=== PATIENT | female | born 1945 | race Caucasian/White ===

== ENCOUNTER → 2022-02-01 | Outpatient (CLI) | payer MEDICARE, OTHER ==
--- NOTE | 2022-02-01 15:15 | US ---
LOWER EXTREMITY VENOUS INSUFFICIENCY CLINICAL HISTORY: I87.333 CHRONIC VENOUS HYPERTENSION. Bilateral ankle wounds. SIDE PERFORMED: Bilateral 1) Color flow is present and patency is documented in the following vessels. No DVT or SVT is noted . Common Femoral Vein Deep Femoral Vein Femoral Vein Popliteal Vein Proximal Calf Veins Greater Saph Vein Upper Small Saph Vein 2) There is venous reflux noted at the following venous levels: Right EIV Right GSV IMPRESSION: Venous reflux present within the right external iliac vein and greater saphenous vein.
== END | disposition home or self-care (01) ==
LOC: RADUSWWP 13:45
PROVIDERS: ATTEND Thoracic Surgery (Cardiothoracic Vascular Surgery)
DX: I87.333 Chronic venous hypertension (idiopathic) with ulcer and inflammation of bilateral lower extremity (principal); L97.222 Non-pressure chronic ulcer of left calf with fat layer exposed; L97.212 Non-pressure chronic ulcer of right calf with fat layer exposed
CPT/HCPCS: 93922; 93970

== ENCOUNTER 2023-03-02 17:46 | Inpatient (IN) | payer MEDICARE, OTHER ==
[2023-03-02] MEDS ORDERED: SODIUM CHLORIDE 0.9% 1,000 ML IV STA (18:58)
[2023-03-02] MEDS ORDERED: NALOXONE 0.4 MG/ML 1 ML VIAL IV PRN (18:58)
[2023-03-02] MEDS ORDERED: VANCOMYCIN IV PER PHARMACY 1 EACH MISC MISCELLANE PRN (18:58)
[2023-03-02] MEDS ORDERED: MORPHINE SULFATE 4 MG/ML SYRINGE IV PRN (18:58)
[2023-03-02] MEDS ORDERED: ONDANSETRON 4 MG/2 ML VIAL IVP STA (18:58)
[2023-03-02] MEDS ORDERED: ONDANSETRON 4 MG/2 ML VIAL IVP PRN (18:58)
[2023-03-02] MEDS ORDERED: MORPHINE SULFATE 4 MG/ML SYRINGE IV STA (18:58)
[2023-03-02] MEDS ORDERED: VANCOMYCIN 1,500 MG in SODIUM CHLORIDE 0.9% 500 ML 500 ML IVPB STA (19:05)
--- NOTE | 2023-03-02 19:19 | ED ---
Extremity Problem HPI - General Chief complaint: Wound/Laceration Stated complaint: Cellulitis on legs Time Seen by Provider: 03/02/23 18:16 Source: patient, RN notes reviewed, old records reviewed Mode of arrival: EMS Limitations: physical limitation - History of Present Illness Initial comments: This is a 77-year-old female to the emergency department for evaluation. Patient will be admitted by to the ER for significant lower extremity cellulitis and drainage. Skin was discharged from both legs with history of chronic pain chronic leg ulcers and wounds. Patient is been doing her own care but the son came to help him today noticed significant this discharge with a bad smell, patient also per the son was not acting appropriately maybe a little bit confused MD Complaint: extremity pain, extremity swelling -: unknown Location: bilateral lower extremity Radiation: proximal, distal Severity scale (1-10): 7 Consistency: constant Improves with: nothing Worsens with: nothing Associated Symptoms: denies other symptoms - Related Data Home Medications Medication Instructions Recorded Confirmed Aspirin EC [Ecotrin Low Dose] 81 mg PO DAILY 03/02/23 03/02/23 Lansoprazole 30 mg PO DAILY 03/02/23 03/02/23 Levothyroxine Sodium [Synthroid] 100 mcg PO DAILY 03/02/23 03/02/23 Multivit-Min/Iron/Folic/Lutein 1 tab PO DAILY 03/02/23 03/02/23 [Centrum Silver Women Tablet] Naproxen Sodium [Aleve] 220 mg PO BID 03/02/23 03/02/23 atenoloL [Tenormin] 50 mg PO DAILY 03/02/23 03/02/23 Previous Rx's Medication Instructions Recorded Cephalexin [Keflex] 500 mg PO Q8HR 10 Days #30 cap 03/06/23 traMADol HCl [Ultram] 50 mg PO Q6H PRN #12 tab 03/08/23 Allergies Allergy/AdvReac Type Severity Reaction Status Date / Time No Known Allergies Allergy Verified 03/02/23 20:53 Review of Systems ROS Statement: Those systems with pertinent positive or pertinent negative responses have been documented in the HPI. ROS Other: All systems not noted in ROS Statement are negative. Past Medical History Additional Past Medical History / Comment(s): Leg wounds and weeping History of Any Multi-Drug Resistant Organisms: None Reported Past Psychological History: No Psychological Hx Reported Smoking Status: Never smoker Past Alcohol Use History: Daily Past Drug Use History: None Reported General Exam Limitations: physical limitation General appearance: alert, in no apparent distress Head exam: Present: atraumatic, normocephalic, normal inspection Eye exam: Present: normal appearance, PERRL, EOMI. Absent: scleral icterus, conjunctival injection, periorbital swelling ENT exam: Present: normal exam, mucous membranes moist Neck exam: Present: normal inspection. Absent: tenderness, meningismus, lymphadenopathy Respiratory exam: Present: normal lung sounds bilaterally. Absent: respiratory distress, wheezes, rales, rhonchi, stridor Cardiovascular Exam: Present: regular rate, normal rhythm, normal heart sounds. Absent: systolic murmur, diastolic murmur, rubs, gallop, clicks GI/Abdominal exam: Present: soft, normal bowel sounds. Absent: distended, tenderness, guarding, rebound, rigid Extremities exam: Present: normal inspection, full ROM, normal capillary refill. Absent: tenderness, pedal edema, joint swelling, calf tenderness Back exam: Present: normal inspection Neurological exam: Present: alert, oriented X3, CN II-XII intact Psychiatric exam: Present: normal affect, normal mood Skin exam: Present: rash, erythema, mottled, abrasion Course Vital Signs 03/02/23 03/02/23 03/03/23 17:50 20:23 06:22 Temperature 97.9 F 98.1 F 97.8 F Pulse Rate 79 77 Respiratory 18 18 Rate Blood Pressure 177/77 177/77 O2 Sat by Pulse 98 99 Oximetry 03/03/23 03/03/23 03/03/23 06:25 09:00 12:52 Temperature 97.8 F 99.1 F Pulse Rate 82 109 H 85 Respiratory 18 18 18 Rate Blood Pressure 164/81 140/75 109/56 O2 Sat by Pulse 98 94 L 96 Oximetry 03/03/23 03/03/23 14:00 17:10 Temperature 98.1 F Pulse Rate 87 Respiratory 18 18 Rate Blood Pressure 140/84 O2 Sat by Pulse 98 Oximetry - Reevaluation(s) Reevaluation #1: 03/02/23 19:16 Medical record is reviewed Reevaluation #2: 03/02/23 19:17 Patient has no change in symptoms here in the ER Reevaluation #3: 03/02/23 19:17 Patient informed of results and questions answered Reevaluation #4: 03/02/23 19:17 Was pt. sent in by a medical professional or institution (DESEAN Cormier, HAND PASTER, urgent care, hospital, or assisted...) When possible be specific @ -no Did you speak to anyone other than the patient for history (EMS, parent, family, police, friend...)? What history was obtained from this source @ -no Did you review nursing and triage notes (agree or disagree)? Why? @ -agree Are old charts reviewed (outside hosp., previous admission, EMS record, old EKG, old radiological studies, urgent care reports/EKG's, assisted records)? Report findings @ -yes Differential Diagnosis (chest pain, altered mental status, abdominal pain women, abdominal pain men, vaginal bleeding, weakness, fever, dyspnea, syncope, head ache, dizziness, GI bleed, back pain, seizure, CVA, palpatations, mental health, musculoskeletal)? @ -prior EKG interpreted by me (3pts min.). @ -yes X-rays interpreted by me (1pt min.). @ -yes CT interpreted by me (1pt min.). @ -no U/S interpreted by me (1pt. min.). @ -no What testing was considered but not performed or refused? (CT, X-rays, U/S, labs)? Why? @ -none What meds were considered but not given or refused? Why? @ -none Did you discuss the management of the patient with other professionals (professionals i.e. DESEAN Cormier, HAND PASTER, lab, RT, psych nurse, social media strategist, assistant branch manager, teacher, earth science technical officer, leather case finisher)? Give summary @ -no Was smoking cessation discussed for >3mins.? @ -no Was critical care preformed (if so, how long)? @ -no Were there social determinants of health that impacted care today? How? (Homelessness, low income, unemployed, alcoholism, drug addiction, tra nsportation, low edu. Level, literacy, decrease access to med. care, nursing home, rehab)? @ -none Was there de-escalation of care discussed even if they declined (Discuss DNR or withdrawal of care, Hospice)? DNR status @ -no What co-morbidities impacted this encounter? (DM, HTN, Smoking, COPD, CAD, Cance r, CVA, ARF, Chemo, Hep., AIDS, mental health diagnosis, sleep apnea, morbid obesity)? @ -none Was patient admitted / discharged? Hospital course, mention meds given and route, prescriptions, significant lab abnormalities, going to OR and other pertinent info. @ - 77 female will be admitted for bilateral lower extremity cellulitis and edema with significant infection malodorous and purulent discharge Admitted Undiagnosed new problem with uncertain prognosis? @ -no Drug Therapy requiring intensive monitoring for toxicity (Heparin, Nitro, Insulin, Cardizem)? @ -no Were any procedures done? @ -no Diagnosis/symptom? @ -Significant lower extremity cellulitis and infection Acute, or Chronic, or Acute on Chronic? @ -Acute Uncomplicated (without systemic symptoms) or Complicated (systemic symptoms)? @ -Complicated Side effects of treatment? @ -no Exacerbation, Progression, or Severe Exacerbation? @ -exacerbation Poses a threat to life or bodily function? How? (Chest pain, USA, SD, pneumonia, PE, COPD, DKA, ARF, appy, cholecystitis, CVA, Diverticulitis, Homicidal, Suicidal, threat to staff... and all critical care pts) @ -yes - Consultations Consultation #1: spoke w Dr Rodríguez who agrees to admit this patient Medical Decision Making - Medical Decision Making 77 female will be admitted for bilateral lower extremity cellulitis and edema with significant infection malodorous and purulent discharge - Lab Data Result diagrams: 03/03/23 07:01 03/06/23 05:43 - EKG Data -: EKG Interpreted by Me (EKG is sinus 72 [place] 164 QRS 80 QTC 408) - Radiology Data Radiology results: report reviewed (X-ray bilateral tib-fib is negative for acute disease), image reviewed Disposition Clinical Impression: Bilateral lower extremity edema, Bilateral lower leg cellulitis Disposition: ADMITTED IP TO THIS HOSP Condition: Fair Is patient prescribed a controlled substance at d/c from ED?: No Time of Disposition: 19:15
[2023-03-02 20:35] LABS: Basophils # (A) 0.1 k/uL (0-0.2); Basophils % (A) 1 %; Eosinophils # (A) 0.2 k/uL (0-0.7); Eosinophils % (A) 2 %; HCT 40.3 % (34.0-46.0); HGB 13.1 gm/dL (11.4-16.0); Lymphocytes % (A) 9 %; MCH 30.2 pg (25.0-35.0); MCHC 32.4 g/dL (31.0-37.0); MCV 93.2 fL (80.0-100.0); Mean Platelet Volume 8.3; Monocytes % (A) 9 %; Neutrophils # (A) 8.6 k/uL (1.3-7.7); Neutrophils % (A) 78 %; Platelet Count 441 k/uL (150-450); RBC 4.33 m/uL (3.80-5.40); RDW 14.2 % (11.5-15.5)
[2023-03-02 20:43] LABS: ALT 21 U/L (4-34); AST 26 U/L (14-36); African American GFR (CKD) 68 (>60 ml/min/1.73 sqM); Albumin 3.4 g/dL (3.5-5.0); Alkaline Phosphatase 172 U/L (38-126); Anion Gap 10 mmol/L; Blood Urea Nitrogen 24 mg/dL (7-17); Calcium 9.6 mg/dL (8.4-10.2); Carbon Dioxide 22 mmol/L (22-30); Chloride 103 mmol/L (98-107); Glucose 120 mg/dL (74-99); Magnesium 2.1 mg/dL (1.6-2.3); Non-African American GFR(CKD) 59 (>60 ml/min/1.73 sqM); Phosphorus 3.1 mg/dL (2.5-4.5); Potassium 4.8 mmol/L (3.5-5.1); Sodium 135 mmol/L (137-145); Total Bilirubin 0.5 mg/dL (0.2-1.3); Total Protein 7.3 g/dL (6.3-8.2)
[2023-03-02 20:51] LABS: NT-Pro-B-Type Natriuretic Pept 158 pg/mL
[2023-03-02 20:59] LABS: Partial Thromboplastin Time 27.8 sec (22.0-30.0); Prothrombin Time 10.8 sec (10.0-12.5)
--- NOTE | 2023-03-02 21:35 | XR ---
PROCEDURE: XR tibia fibula bilateral - 8V DATE AND TIME: 03/02/2023 7:53 PM CLINICAL INDICATION: PHH; pain TECHNIQUE: Department protocol - 8 views COMPARISON: None FINDINGS: AP and lateral imaging was obtained from the right knee to the right ankle and from the left knee to the left ankle. There is no fracture or malalignment. No focal skeletal findings. There is scattered mild soft tissue swelling. No soft tissue emphysema. No radio opaque foreign titus s. IMPRESSION: Bilateral tibia-fibula: Scattered mild soft tissue swelling.
[2023-03-03] MEDS: NAPROXEN 250 MG TAB PO SCH ×3 (02:32→22:11)
[2023-03-03] MEDS: PANTOPRAZOLE 40 MG TABLET PO SCH (06:55)
[2023-03-03] MEDS: LEVOTHYROXINE 100 MCG TAB PO SCH (06:55)
[2023-03-03] MEDS: ASPIRIN 81 MG PO SCH (09:01)
[2023-03-03] MEDS: atenoloL 50 MG TAB PO SCH (09:02)
[2023-03-03] MEDS: MULTIVITAMINS, THERA 1 EACH TAB PO SCH (09:02)
[2023-03-03 11:07] LABS: Basophils # (A) 0.06 X 10*3/uL (0.00-0.10); Basophils % (A) 0.5 %; Eosinophils # (A) 0.09 X 10*3/uL (0.04-0.35); Eosinophils % (A) 0.8 %; HCT 37.6 % (37.2-46.3); HGB 11.9 d/dL (12.0-15.0); Lymphocytes # (A) 0.89 X 10*3/uL (0.90-5.00); MCH 29.6 pg (27.0-32.0); MCHC 31.6 d/dL (32.0-37.0); MCV 93.5 FL (80.0-97.0); Mean Platelet Volume 9.2 FL (9.5-12.2); Monocytes # (A) 1.44 X 10*3/uL (0.20-1.00); NRBC Per 100 WBC 0 X 10*3/uL (0.00-0.01); Neutrophils # (A) 8.52 X 10*3/uL (1.80-7.70); Neutrophils % (A) 77.2 %; Platelet Count 352 X 10*3/uL (140-440); RBC 4.02 X 10*6/uL (4.10-5.20); RDW 14.5 % (11.5-14.5); WBC 11.06 X 10*3/uL (4.50-10.00)
[2023-03-03 11:23] LABS: ALT 14 U/L (8-44); AST 19 U/L (13-35); Albumin/Globulin Ratio 1.03 Ratio (1.60-3.17); Alkaline Phosphatase 130 U/L (41-126); BUN/Creat Ratio 19.67 Ratio (12.00-20.00); Blood Urea Nitrogen 17.7 mg/dL (9.0-27.0); Calcium 9.3 mg/dL (8.7-10.3); Carbon Dioxide 21.3 mmol/L (21.6-31.8); Chloride 106 mmol/L (96-109); Globulin 2.9 d/dL (1.6-3.3); Glucose 135 mg/dL (70-110); Magnesium 1.9 mg/dL (1.5-2.4); Phosphorus 2.8 mg/dL (2.4-5.1); Potassium 4.7 mmol/L (3.5-5.5); Sodium 138 mmol/L (135-145); Total Bilirubin 0.3 mg/dL (0.3-1.2); Total Protein 5.9 d/dL (6.2-8.2)
--- NOTE | 2023-03-03 14:57 | P.HPIM ---
History of Present Illness H&P Date: 03/03/23 Chief Complaint: Lower extremity wounds This is a pleasant 77-year-old patient who as just establish herself with Dr. Toney Irving. Patient is at lower extremity wound for some time. Used to 4 at the wound care center and underwent [address] Simmons, wound care nurse. For the last 6 months patient hasn't been updated. And was taking care of her wounds on her own. More started deteriorating. Having the drainage. Painful. Denies any fever and chills. Appetite is okay. Since the wounds could not be managed at home anymore she decided to come in. Normally uses a cane. Now finding it difficult to walk because lower extremity wounds. Review of systems: GEN.: None EYES: None HEENT: None NECK: None RESPIRATORY: None CARDIOVASCULAR: None GASTROINTESTINAL: None GENITOURINARY: Urinary incontinence MUSCULOSKELETAL: Joint pains LYMPHATICS: None HEMATOLOGICAL: None PSYCHIATRY: None NEUROLOGICAL: None Past medical history to include: Osteoarthritis, essential hypertension, hypothyroid, GERD, lower extremity wounds Social history: Nonsmoker. . Lives with Physical examination: VITAL SIGNS: 99, 85, 18, 109/56, 96% room air GENERAL: BMI 35.4, sitting up in bed. EYES: Pupils equal. Conjunctiva normal. HEENT: External appearance of nose and ears normal, oral cavity grossly normal. NECK: JVD not raised; masses not palpable. HEART: First and second heart sounds are normal; no edema. LUNGS: Respiratory rate normal; clear to auscultation. ABDOMEN: Soft, nontender, liver spleen not palpable, no masses palpable. PSYCH: Alert and oriented x3; mood and affect normal. MUSCULOSKELETAL:No Clubbing/cyanosis;muscles-grossly intact. OA LOWER extremity: Wounds in both lower extremity in the adam area. More detailed and nursing notes NEUROLOGICAL: Cranial nerves grossly intact; no facial asymmetry, power and sensation grossly intact. LYMPHATICS: No lymph nodes palpable in the axilla and neck INVESTIGATIONS, reviewed in the clinical context: White count 11.06 hemoglobin 11.9 platelets 352 sodium 138 potassium 4.7 creatinine 0.9 ProBNP 158 EKG tracing personally reviewed by me-normal sinus rhythm. Previous investigations: Lower extremity: Venous reflux present within the right external iliac vein and greater saphenous vein. [January 2022) Assessment and plan: -Acute on chronic lower extremity wounds. Likely venous ulcers. Did receive treatment for 32 weeks at the wound care center. Did not follow for the last 6 months. Progressively getting worse at home. Appears infected. IV ceftriaxone. Vascular and ID consulted -Obesity BMI 35.4 Weight loss measures -Chronic bilateral lower external edema venous insufficiency with known reflux present to the right external iliac vein and the greater saphenous vein. -Primary osteoarthritis Naproxen twice a day -Essential hypertension Tenormin 50 mg a day -Hypothyroid Synthroid 100 g a day -GERD Lansoprazole Consultation to vascular ID. Home medications resumed. Subcu Lovenox. Discussed with patient. Given the complexity and severity of patient's condition expect the patient to be in the hospital at least for 2 overnights. Patient is barely able to walk. Past Medical History Additional Past Medical History / Comment(s): Leg wounds and weeping History of Any Multi-Drug Resistant Organisms: None Reported Past Psychological History: No Psychological Hx Reported Smoking Status: Never smoker Past Alcohol Use History: Daily Past Drug Use History: None Reported Medications and Allergies Home Medications Medication Instructions Recorded Confirmed Type Aspirin EC [Ecotrin Low Dose] 81 mg PO DAILY 03/02/23 03/02/23 History Lansoprazole 30 mg PO DAILY 03/02/23 03/02/23 History Levothyroxine Sodium [Synthroid] 100 mcg PO DAILY 03/02/23 03/02/23 History Multivit-Min/Iron/Folic/Lutein 1 tab PO DAILY 03/02/23 03/02/23 History [Centrum Silver Women Tablet] Naproxen Sodium [Aleve] 220 mg PO BID 03/02/23 03/02/23 History atenoloL [Tenormin] 50 mg PO DAILY 03/02/23 03/02/23 History Allergies Allergy/AdvReac Type Severity Reaction Status Date / Time No Known Allergies Allergy Verified 03/02/23 20:53 Physical Exam Vitals: Vital Signs Temp Pulse Resp BP Pulse Ox 03/03/23 09:00 109 H 18 140/75 94 L 03/03/23 06:25 97.8 F 82 18 164/81 98 03/03/23 06:22 97.8 F 03/02/23 20:23 98.1 F 77 18 177/77 99 03/02/23 17:50 97.9 F 79 18 177/77 98 Intake and Output 10/19/23 10/20/23 10/20/23 22:59 06:59 14:59 Other: Weight 90.718 kg Results CBC & Chem 7: 03/03/23 07:01 03/03/23 07:01 Labs: Abnormal Lab Results - Last 24 Hours (Table) 03/02/23 03/02/23 Range/Units 20:00 20:00 WBC 11.0 H (3.8-10.6) k/uL Neutrophils # 8.6 H (1.3-7.7) k/uL Sodium 135 L (137-145) mmol/L BUN 24 H (7-17) mg/dL Glucose 120 H (74-99) mg/dL Alkaline Phosphatase 172 H (38-126) U/L Albumin 3.4 L (3.5-5.0) g/dL
--- NOTE | 2023-03-03 15:53 | P.GSCN ---
History of Present Illness History of present illness: 77-year-old white female, patient came to the emergency room with history of long-standing history of 4 venous stasis ulcer both lower extremity patient has been coming to the wound clinic clinic but for the past 4 months she has been been staying home and taking care of herself patient has a bad knee problem she can't take care of herself now she has a large venous stasis ulcer involving the right lower extremity extremity is circumferentially and also on the left lower extremity with some drainage patient has no fever or chills Patient was seen in in the emergency room neck is supple no bruit appreciated Chest is clear good and both then first and second sound present Abdomen soft nontender Vascular femorals are 1+ bilateral patient has a venous stasis ulcer involving the right and left lower ex extremity involving circumferentially Eschen to that care of refuses disease for IV antibiotic we have changed the dressing today we use Aquacel silver both lower extremity with compression wrap next dressing will be changed on Monday advised to keep 2 pillow elevation patient IV antibiotic follow with you Past Medical History Additional Past Medical History / Comment(s): Leg wounds and weeping History of Any Multi-Drug Resistant Organisms: None Reported Past Psychological History: No Psychological Hx Reported Smoking Status: Never smoker Past Alcohol Use History: Daily Past Drug Use History: None Reported Medications and Allergies Home Medications Medication Instructions Recorded Confirmed Type Aspirin EC [Ecotrin Low Dose] 81 mg PO DAILY 03/02/23 03/02/23 History Lansoprazole 30 mg PO DAILY 03/02/23 03/02/23 History Levothyroxine Sodium [Synthroid] 100 mcg PO DAILY 03/02/23 03/02/23 History Multivit-Min/Iron/Folic/Lutein 1 tab PO DAILY 03/02/23 03/02/23 History [Centrum Silver Women Tablet] Naproxen Sodium [Aleve] 220 mg PO BID 03/02/23 03/02/23 History atenoloL [Tenormin] 50 mg PO DAILY 03/02/23 03/02/23 History Allergies Allergy/AdvReac Type Severity Reaction Status Date / Time No Known Allergies Allergy Verified 03/02/23 20:53 Surgical - Exam Vital Signs Temp Pulse Resp BP Pulse Ox 97.9 F 79 18 177/77 98 03/02/23 17:50 03/02/23 17:50 03/02/23 17:50 03/02/23 17:50 03/02/23 17:50 Results - Labs 03/03/23 07:01 03/03/23 07:01 Abnormal Lab Results - Last 24 Hours (Table) 03/02/23 03/02/23 03/03/23 Range/Units 20:00 20:00 07:01 WBC 11.0 H 11.06 H (3.8-10.6) k/uL RBC 4.02 L (4.10-5.20) X 10*6/uL Hgb 11.9 L (12.0-15.0) d/dL MCHC 31.6 L (32.0-37.0) d/dL MPV 9.2 L (9.5-12.2) FL Neutrophils # 8.6 H 8.52 H (1.3-7.7) k/uL Lymphocytes # 0.89 L (0.90-5.00) X 10*3/uL Monocytes # 1.44 H (0.20-1.00) X 10*3/uL Sodium 135 L (137-145) mmol/L Carbon Dioxide (21.6-31.8) mmol/L BUN 24 H (7-17) mg/dL Glucose 120 H (74-99) mg/dL Alkaline Phosphatase 172 H (38-126) U/L Total Protein (6.2-8.2) d/dL Albumin 3.4 L (3.5-5.0) g/dL Albumin/Globulin Ratio (1.60-3.17) Ratio 03/03/23 Range/Units 07:01 WBC (3.8-10.6) k/uL RBC (4.10-5.20) X 10*6/uL Hgb (12.0-15.0) d/dL MCHC (32.0-37.0) d/dL MPV (9.5-12.2) FL Neutrophils # (1.3-7.7) k/uL Lymphocytes # (0.90-5.00) X 10*3/uL Monocytes # (0.20-1.00) X 10*3/uL Sodium (137-145) mmol/L Carbon Dioxide 21.3 L (21.6-31.8) mmol/L BUN (7-17) mg/dL Glucose 135 H (74-99) mg/dL Alkaline Phosphatase 130 H (38-126) U/L Total Protein 5.9 L (6.2-8.2) d/dL Albumin 3.0 L (3.5-5.0) g/dL Albumin/Globulin Ratio 1.03 L (1.60-3.17) Ratio Diabetes panel 03/02/23 03/03/23 Range/Units 20:00 07:01 Sodium 135 L 138 (137-145) mmol/L Potassium 4.8 4.7 (3.5-5.1) mmol/L Chloride 103 106 (98-107) mmol/L Carbon Dioxide 22 21.3 L (22-30) mmol/L BUN 24 H 17.7 (7-17) mg/dL Creatinine 0.95 0.9 (0.52-1.04) mg/dL Glucose 120 H 135 H (74-99) mg/dL Calcium 9.6 9.3 (8.4-10.2) mg/dL AST 26 19 (14-36) U/L ALT 21 14 (4-34) U/L Alkaline Phosphatase 172 H 130 H (38-126) U/L Total Protein 7.3 5.9 L (6.3-8.2) g/dL Albumin 3.4 L 3.0 L (3.5-5.0) g/dL Calcium panel 03/02/23 03/03/23 Range/Units 20:00 07:01 Calcium 9.6 9.3 (8.4-10.2) mg/dL Phosphorus 3.1 2.8 (2.5-4.5) mg/dL Albumin 3.4 L 3.0 L (3.5-5.0) g/dL Pituitary panel 03/02/23 03/03/23 Range/Units 20:00 07:01 Sodium 135 L 138 (137-145) mmol/L Potassium 4.8 4.7 (3.5-5.1) mmol/L Chloride 103 106 (98-107) mmol/L Carbon Dioxide 22 21.3 L (22-30) mmol/L BUN 24 H 17.7 (7-17) mg/dL Creatinine 0.95 0.9 (0.52-1.04) mg/dL Glucose 120 H 135 H (74-99) mg/dL Calcium 9.6 9.3 (8.4-10.2) mg/dL Adrenal panel 03/02/23 03/03/23 Range/Units 20:00 07:01 Sodium 135 L 138 (137-145) mmol/L Potassium 4.8 4.7 (3.5-5.1) mmol/L Chloride 103 106 (98-107) mmol/L Carbon Dioxide 22 21.3 L (22-30) mmol/L BUN 24 H 17.7 (7-17) mg/dL Creatinine 0.95 0.9 (0.52-1.04) mg/dL Glucose 120 H 135 H (74-99) mg/dL Calcium 9.6 9.3 (8.4-10.2) mg/dL Total Bilirubin 0.5 0.3 (0.2-1.3) mg/dL AST 26 19 (14-36) U/L ALT 21 14 (4-34) U/L Alkaline Phosphatase 172 H 130 H (38-126) U/L Total Protein 7.3 5.9 L (6.3-8.2) g/dL Albumin 3.4 L 3.0 L (3.5-5.0) g/dL
[2023-03-03] MEDS: ENOXAPARIN 40 MG/0.4 ML SYRINGE SQ SCH (16:09)
[2023-03-03] MEDS: traMADol 50 MG TAB PO SCH ×2 (16:40→22:12)
[2023-03-03] MEDS ORDERED: VANCOMYCIN 1,500 MG in SODIUM CHLORIDE 0.9% 500 ML 500 ML IVPB SCH (20:00)
--- NOTE | 2023-03-03 23:05 | P.CONS ---
History of Present Illness - Reason for Consult Consult date: 03/03/23 Bilateral lower extremity cellulitis Requesting physician: David Rodríguez - Chief Complaint Increasing swelling and redness to bilateral leg X few days - History of Present Illness Patient is a 77-year-old female with a past medical history significant for bilateral lower extremity venous stasis ulcer and cellulitis for the patient used to follow at [facility] however has been taking care of her legs at home over the last few months patient also have a history of hypertension hypothyroidism patient is presenting to the ER last night for evaluation of increasing lower extremity swelling redness and drainage patient has been complaining of pain to bilateral extremity to be sharp intensity is moderate without any radiation patient did have weeping edema but no foul- smelling drainage she did have some chills but denies high-grade fever on pr esentation to the hospital the patient was afebrile did have a low-grade fever of 99.1 degrees on right patient was mildly tachycardic but not hypotensive or hypoxic did have white count of 11.06 with a left shift creatinine was normal liver enzymes are normal patient did have x-ray of the tibia-fibula negative for any fracture or bony abnormality the patient was started on ceftriaxone and vancomycin infectious disease was consulted for further management of antibiotic therapy Review of Systems Positive point and negatives has been mentioned in the HPI, complete review of systems was performed and all other systems are negative Past Medical History Additional Past Medical History / Comment(s): Leg wounds and weeping History of Any Multi-Drug Resistant Organisms: None Reported Past Psychological History: No Psychological Hx Reported Smoking Status: Never smoker Past Alcohol Use History: Daily Past Drug Use History: None Reported Medications and Allergies Home Medications Medication Instructions Recorded Confirmed Type Aspirin EC [Ecotrin Low Dose] 81 mg PO DAILY 03/02/23 03/02/23 History Lansoprazole 30 mg PO DAILY 03/02/23 03/02/23 History Levothyroxine Sodium [Synthroid] 100 mcg PO DAILY 03/02/23 03/02/23 History Multivit-Min/Iron/Folic/Lutein 1 tab PO DAILY 03/02/23 03/02/23 History [Centrum Silver Women Tablet] Naproxen Sodium [Aleve] 220 mg PO BID 03/02/23 03/02/23 History atenoloL [Tenormin] 50 mg PO DAILY 03/02/23 03/02/23 History Allergies Allergy/AdvReac Type Severity Reaction Status Date / Time No Known Allergies Allergy Verified 03/02/23 20:53 Physical Exam Vitals: Vital Signs Temp Pulse Resp BP Pulse Ox 03/03/23 12:52 99.1 F 85 18 109/56 96 03/03/23 09:00 109 H 18 140/75 94 L 03/03/23 06:25 97.8 F 82 18 164/81 98 03/03/23 06:22 97.8 F 03/02/23 20:23 98.1 F 77 18 177/77 99 03/02/23 17:50 97.9 F 79 18 177/77 98 Intake and Output 03/02/23 03/03/23 03/03/23 22:59 06:59 14:59 Other: Weight 90.718 kg GENERAL DESCRIPTION: Elderly female lying in bed, no distress. No tachypnea or accessory muscle of respiration use. HEENT: Shows Pallor , no scleral icterus. Oral mucous membrane is dry. No pharyngeal erythema or thrush NECK: Trachea central, no thyromegaly. LUNGS: Unlabored breathing. Clear to auscultation anteriorly. No wheeze or crackle. HEART: S1, S2, regular rate and rhythm. No loud murmur ABDOMEN: Soft, no tenderness , guarding or rigidity, no organomegaly EXTREMITIES: Diffuse swelling redness to bilateral lower extremity some superficial ulceration no foul-smelling drainage. SKIN: No rash, no masses palpable. NEUROLOGICAL: The patient is awake, alert, oriented x3, mood and affect normal. Results CBC & Chem 7: 03/03/23 07:01 03/03/23 07:01 Labs: Abnormal Lab Results - Last 24 Hours (Table) 03/02/23 03/02/23 03/03/23 Range/Units 20:00 20:00 07:01 WBC 11.0 H 11.06 H (3.8-10.6) k/uL RBC 4.02 L (4.10-5.20) X 10*6/uL Hgb 11.9 L (12.0-15.0) d/dL MCHC 31.6 L (32.0-37.0) d/dL MPV 9.2 L (9.5-12.2) FL Neutrophils # 8.6 H 8.52 H (1.3-7.7) k/uL Lymphocytes # 0.89 L (0.90-5.00) X 10*3/uL Monocytes # 1.44 H (0.20-1.00) X 10*3/uL Sodium 135 L (137-145) mmol/L Carbon Dioxide (21.6-31.8) mmol/L BUN 24 H (7-17) mg/dL Glucose 120 H (74-99) mg/dL Alkaline Phosphatase 172 H (38-126) U/L Total Protein (6.2-8.2) d/dL Albumin 3.4 L (3.5-5.0) g/dL Albumin/Globulin Ratio (1.60-3.17) Ratio 03/03/23 Range/Units 07:01 WBC (3.8-10.6) k/uL RBC (4.10-5.20) X 10*6/uL Hgb (12.0-15.0) d/dL MCHC (32.0-37.0) d/dL MPV (9.5-12.2) FL Neutrophils # (1.3-7.7) k/uL Lymphocytes # (0.90-5.00) X 10*3/uL Monocytes # (0.20-1.00) X 10*3/uL Sodium (137-145) mmol/L Carbon Dioxide 21.3 L (21.6-31.8) mmol/L BUN (7-17) mg/dL Glucose 135 H (74-99) mg/dL Alkaline Phosphatase 130 H (38-126) U/L Total Protein 5.9 L (6.2-8.2) d/dL Albumin 3.0 L (3.5-5.0) g/dL Albumin/Globulin Ratio 1.03 L (1.60-3.17) Ratio Assessment and Plan (1) Bilateral lower leg cellulitis Current Visit: Yes Status: Acute Code(s): L03.116 - CELLULITIS OF LEFT LOWER LIMB; L03.115 - CELLULITIS OF RIGHT LOWER LIMB SNOMED Code(s): 732709554 Plan: Patient presented to hospital with bilateral lower extremity swelling and redness and pain in this patient who do have history of bilateral lower extremity venous results are concerning for cellulitis likely from gram-positive skin adrian such as Streptococcus clinically doubt MRSA or gram-negative infection 2-discontinue vancomycin and Rocephin 3-start the patient on cefazolin 2 g every 8 hours 4-local wound care per vascular surgery We will follow on clinical condition and cultures to further adjust medication if needed Thank you for this consultation we will follow the patient along with you Dictation was produced using [employer] dictation software. please excuse any grammatical, word or spelling errors. Time with Patient: Greater than 30
[2023-03-04] MEDS: PANTOPRAZOLE 40 MG TABLET PO SCH (06:36)
[2023-03-04] MEDS: LEVOTHYROXINE 100 MCG TAB PO SCH (06:36)
[2023-03-04 08:10] LABS: African American GFR (CKD) 81 (>60 ml/min/1.73 sqM); Non-African American GFR(CKD) 70 (>60 ml/min/1.73 sqM)
[2023-03-04] MEDS: ASPIRIN 81 MG PO SCH (08:28)
[2023-03-04] MEDS: traMADol 50 MG TAB PO SCH ×4 (08:28→21:34)
[2023-03-04] MEDS: atenoloL 50 MG TAB PO SCH (08:28)
[2023-03-04] MEDS: ENOXAPARIN 40 MG/0.4 ML SYRINGE SQ SCH (08:28)
[2023-03-04] MEDS: MULTIVITAMINS, THERA 1 EACH TAB PO SCH (08:31)
[2023-03-04] MEDS: NAPROXEN 250 MG TAB PO SCH ×2 (10:11→22:38)
--- NOTE | 2023-03-04 10:25 | PN ---
PROGRESS NOTE This is a 77-year-old pleasant female. She came to ER. The patient has chronic venostasis ulcer of both lower extremities, right lower extremity venostasis ulcer involving the circumferential of the right lower leg and also the patient has a venostasis ulcer of left lower extremity. She has been treating at home for the past 4 months. We changed the dressing with Aquacel Silver bilateral, and the patient is under care of Infectious Disease, and IV antibiotic. We will change the dressing on Monday. We will recommend 2-pillow elevation. MMODL / IJN: [id number] /
--- NOTE | 2023-03-04 13:17 | P.PN ---
Subjective Progress Note Date: 03/04/23 Principal diagnosis: Bilateral lower extremity cellulitis Patient is a 77-year-old female with a past medical history significant for bilateral lower extremity venous stasis ulcer and cellulitis, patient presented to hospital with increasing swelling redness to bilateral lower extremity has been diagnosed with the bilateral lower extremity cellulitis. on today's evaluation that is03/04/2023, the patient denies any fever or any chills, the patient is breathing comfortably on room air , the patient denies chest pain, shortness of breath and no significant cough, patient denies abdominal pain, no nausea/vomiting or diarrhea, bilateral extremity pain and swelling has decreased in intensity Patient did have a white count of 11.06 and creatinine 0.82 Objective - Vital Signs Vital signs: Vital Signs Temp 98.5 F 03/04/23 08:00 Pulse 74 03/04/23 08:00 Resp 18 03/04/23 08:00 BP 107/63 03/04/23 08:00 Pulse Ox 99 03/04/23 08:00 FiO2 Intake & Output 03/03/23 03/04/23 03/04/23 18:59 06:59 18:59 Intake Total 50 Output Total 600 Balance 50 -600 Weight 90.718 kg Intake: Intake, IV Titration 50 Amount cefTRIAXone 2 gm In 50 Sodium Chloride 0.9% 50 ml @ 100 mls/hr IVPB Q24HR [facility] Rx#:[id number] Output: Urine 600 Other: Voiding Method External Catheter - Exam GENERAL DESCRIPTION: An elderly female lying in bed in no distress RESPIRATORY SYSTEM: Unlabored breathing , decreased breath sounds at bases HEART: S1 S2 regular rate and rhythm , ABDOMEN: Soft , no tenderness EXTREMITIES: Bilateral lower extremity currently wrapped in Dougie wrap - Labs CBC & Chem 7: 03/03/23 07:01 03/04/23 06:52 Labs: Microbiology - Last 24 Hours (Table) 03/02/23 20:00 Blood Culture - Preliminary Blood Assessment and Plan (1) Bilateral lower leg cellulitis Current Visit: Yes Status: Acute Code(s): L03.116 - CELLULITIS OF LEFT LOWER LIMB; L03.115 - CELLULITIS OF RIGHT LOWER LIMB SNOMED Code(s): 446864888 Plan: Patient presented to hospital with bilateral lower extremity swelling and redness and pain in this patient who do have history of bilateral lower extremity venous results are concerning for cellulitis likely from gram-positive skin adrian such as Streptococcus clinically doubt MRSA or gram-negative infection 2Patient to continue with cefazolin 2 g every 8 hours Dictation was produced using [email or web address] dictation software. please excuse any grammatical, word or spelling errors. Time with Patient: Less than 30
--- NOTE | 2023-03-04 15:07 | P.PN ---
Progress Note - Text Progress Note Date: 03/04/23 Chief Complaint: Lower extremity wounds This is a pleasant 77-year-old patient who as just establish herself with Dr. Toney Irving. Patient is at lower extremity wound for some time. Used to 4 at the wound care center and underwent [email or web address], wound care nurse. For the last 6 months patient hasn't been updated. And was taking care of her wounds on her own. More started deteriorating. Having the drainage. Painful. Denies any fever and chills. Appetite is okay. Since the wounds could not be managed at home anymore she decided to come in. Normally uses a cane. Now finding it difficult to walk because lower extremity wounds. March 04: 40 by ID and vascular. On IV Ancef. Possible debridement on Monday by vascular. Patient has venostasis ulcers bilateral lower extremity. Active Medications Aspirin (Aspirin 81 Mg) 81 mg PO DAILY [facility] Last Admin: 03/04/23 08:28 Dose: 81 mg Atenolol (Atenolol 50 Mg Tab) 50 mg PO DAILY [facility] Last Admin: 03/04/23 08:28 Dose: 50 mg Enoxaparin Sodium (Enoxaparin 40 Mg/0.4 Ml Syringe) 40 mg SQ DAILY [facility] Last Admin: 03/04/23 08:28 Dose: 40 mg Cefazolin Sodium 2 gm/ Sodium (Chloride) 50 mls @ 100 mls/hr IVPB Q8HR [facility]; Protocol Last Admin: 03/04/23 08:30 Dose: 100 mls/hr Levothyroxine Sodium (Levothyroxine 100 Mcg Tab) 100 mcg PO DAILY@0630 [facility] Last Admin: 03/04/23 06:36 Dose: 100 mcg Multivitamins (Multivitamins, Thera 1 Each Tab) 1 each PO DAILY [facility] Last Admin: 03/04/23 08:31 Dose: 1 each Naloxone HCl (Naloxone 0.4 Mg/Ml 1 Ml Vial) 0.2 mg IV Q2M PRN PRN Reason: Opioid Reversal Naproxen (Naproxen 250 Mg Tab) 250 mg PO BID [facility] Last Admin: 03/04/23 10:11 Dose: 250 mg Ondansetron HCl (Ondansetron 4 Mg/2 Ml Vial) 4 mg IVP Q8HR PRN PRN Reason: Nausea And Vomiting Pantoprazole Sodium (Pantoprazole 40 Mg Tablet) 40 mg PO AC-BRKFST [facility] Last Admin: 03/04/23 06:36 Dose: 40 mg Tramadol HCl (Tramadol 50 Mg Tab) 50 mg PO QID [facility] Last Admin: 03/04/23 08:28 Dose: 50 mg Past medical history to include: Osteoarthritis, essential hypertension, hypothyroid, GERD, lower extremity wounds Social history: Nonsmoker. . Lives with Physical examination: VITAL SIGNS: 98.5, 74, 18, 107/63, 99% room air GENERAL: Laying in bed, comfortable EYES: Pupils equal. Conjunctiva normal. HEENT: External appearance of nose and ears normal, oral cavity grossly normal. NECK: JVD not raised; masses not palpable. HEART: First and second heart sounds are normal; no edema. LUNGS: Respiratory rate normal; clear to auscultation. ABDOMEN: Soft, nontender, liver spleen not palpable, no masses palpable. PSYCH: Alert and oriented x3; mood and affect normal. MUSCULOSKELETAL:No Clubbing/cyanosis;muscles-grossly intact. OA LOWER extremity: Wounds in both lower extremity -negative dressing More detail ed and nursing notes INVESTIGATIONS, reviewed in the clinical context: White count 11.06 hemoglobin 11.9 platelets 352 sodium 138 potassium 4.7 creatinine 0.9 ProBNP 158 EKG tracing personally reviewed by me-normal sinus rhythm. Previous investigations: Lower extremity: Venous reflux present within the right external iliac vein and greater saphenous vein. [January 2022) Assessment and plan: -Acute on chronic lower extremity wounds. Likely venous ulcers. Did receive treatment for 32 weeks at the wound care center. Did not follow for the last 6 months. Progressively getting worse at home. Appears infected. IV Ancef Vascular and ID following -Obesity BMI 35.4 Weight loss measures -Chronic bilateral lower external edema venous insufficiency with known reflux present to the right external iliac vein and the greater saphenous vein. Follow with vascular -Primary osteoarthritis Naproxen twice a day -Essential hypertension Tenormin 50 mg a day -Hypothyroid Synthroid 100 g a day -GERD Lansoprazole Continue with antibiotics, local wound care. Discussed with patient.
[2023-03-05] MEDS: PANTOPRAZOLE 40 MG TABLET PO SCH (06:23)
[2023-03-05] MEDS: LEVOTHYROXINE 100 MCG TAB PO SCH (06:23)
[2023-03-05 07:10] LABS: African American GFR (CKD) 85 (>60 ml/min/1.73 sqM); Non-African American GFR(CKD) 74 (>60 ml/min/1.73 sqM)
[2023-03-05] MEDS: NAPROXEN 250 MG TAB PO SCH ×2 (09:04→20:48)
[2023-03-05] MEDS: ASPIRIN 81 MG PO SCH (09:08)
[2023-03-05] MEDS: ENOXAPARIN 40 MG/0.4 ML SYRINGE SQ SCH (09:08)
[2023-03-05] MEDS: traMADol 50 MG TAB PO SCH ×4 (09:08→20:48)
[2023-03-05] MEDS: atenoloL 50 MG TAB PO SCH (09:08)
[2023-03-05] MEDS: MULTIVITAMINS, THERA 1 EACH TAB PO SCH (09:08)
--- NOTE | 2023-03-05 13:12 | P.PN ---
Progress Note - Text Progress Note Date: 03/05/23 Chief Complaint: Lower extremity wounds This is a pleasant 77-year-old patient who as just establish herself with Dr. Toney Irving. Patient is at lower extremity wound for some time. Used to 4 at the wound care center and underwent [email or web address], wound care nurse. For the last 6 months patient hasn't been updated. And was taking care of her wounds on her own. More started deteriorating. Having the drainage. Painful. Denies any fever and chills. Appetite is okay. Since the wounds could not be managed at home anymore she decided to come in. Normally uses a cane. Now finding it difficult to walk because lower extremity wounds. March 04: Followed by ID and vascular. On IV Ancef. Possible debridement on Monday by vascular. Patient has venostasis ulcers bilateral lower extremity. March 05: Getting antibiotics. Tolerating diet. Pain control. Pending debridement tomorrow. Discussed with patient Active Medications Aspirin (Aspirin 81 Mg) 81 mg PO DAILY [facility] Last Admin: 03/05/23 09:08 Dose: 81 mg Atenolol (Atenolol 50 Mg Tab) 50 mg PO DAILY [facility] Last Admin: 03/05/23 09:08 Dose: 50 mg Enoxaparin Sodium (Enoxaparin 40 Mg/0.4 Ml Syringe) 40 mg SQ DAILY [facility] Last Admin: 03/05/23 09:08 Dose: 40 mg Cefazolin Sodium 2 gm/ Sodium (Chloride) 50 mls @ 100 mls/hr IVPB Q8HR [facility]; Protocol Last Admin: 03/05/23 09:04 Dose: 100 mls/hr Levothyroxine Sodium (Levothyroxine 100 Mcg Tab) 100 mcg PO DAILY@0630 [facility] Last Admin: 03/05/23 06:23 Dose: 100 mcg Multivitamins (Multivitamins, Thera 1 Each Tab) 1 each PO DAILY [facility] Last Admin: 03/05/23 09:08 Dose: 1 each Naloxone HCl (Naloxone 0.4 Mg/Ml 1 Ml Vial) 0.2 mg IV Q2M PRN PRN Reason: Opioid Reversal Naproxen (Naproxen 250 Mg Tab) 250 mg PO BID [facility] Last Admin: 03/05/23 09:04 Dose: 250 mg Ondansetron HCl (Ondansetron 4 Mg/2 Ml Vial) 4 mg IVP Q8HR PRN PRN Reason: Nausea And Vomiting Pantoprazole Sodium (Pantoprazole 40 Mg Tablet) 40 mg PO AC-BRKFST [facility] Last Admin: 03/05/23 06:23 Dose: 40 mg Tramadol HCl (Tramadol 50 Mg Tab) 50 mg PO QID [facility] Last Admin: 03/05/23 09:08 Dose: 50 mg Past medical history to include: Osteoarthritis, essential hypertension, hypothyroid, GERD, lower extremity woun ds Social history: Nonsmoker. . Lives with Physical examination: VITAL SIGNS: 97.6, 65, 18, 115/68, 97% room air GENERAL: Propped up in bed, comfortable EYES: Pupils equal. Conjunctiva normal. HEENT: External appearance of nose and ears normal, oral cavity grossly normal. NECK: JVD not raised; masses not palpable. HEART: First and second heart sounds are normal; no edema. LUNGS: Respiratory rate normal; clear to auscultation. ABDOMEN: Soft, nontender, liver spleen not palpable, no masses palpable. PSYCH: Alert and oriented x3; mood and affect normal. MUSCULOSKELETAL:No Clubbing/cyanosis;muscles-grossly intact. OA LOWER extremity: Wounds in both lower extremity -negative dressing More detailed and nursing notes INVESTIGATIONS, reviewed in the clinical context: White count 11.06 hemoglobin 11.9 platelets 352 sodium 138 potassium 4.7 creatinine 0.9 ProBNP 158 EKG tracing personally reviewed by me-normal sinus rhythm. Previous investigations: Lower extremity: Venous reflux present within the right external iliac vein and greater saphenous vein. [January 2022) Assessment and plan: -Acute on chronic lower extremity wounds. Likely venous ulcers. Did receive treatment for 32 weeks at the wound care center. Did not follow for the last 6 months. Progressively getting worse at home. Appears infected. IV Ancef Vascular and ID following Pending debridement tomorrow -Obesity BMI 35.4 Weight loss measures -Chronic bilateral lower external edema venous insufficiency with known reflux present to the right external iliac vein and the greater saphenous vein. Follow with vascular -Primary osteoarthritis Naproxen twice a day -Essential hypertension Tenormin 50 mg a day -Hypothyroid Synthroid 100 g a day -GERD Lansoprazole Discussed with patient. Pending debridement tomorrow.
--- NOTE | 2023-03-05 14:58 | P.PN ---
Subjective Progress Note Date: 03/05/23 Principal diagnosis: Bilateral lower extremity cellulitis Patient is a 77-year-old female with a past medical history significant for bilateral lower extremity venous stasis ulcer and cellulitis, patient presented to hospital with increasing swelling redness to bilateral lower extremity has been diagnosed with the bilateral lower extremity cellulitis. on today's evaluation that is 03/05/2023, the patient remains to be afebrile, the patient is breathing comfortably on room air without the need for supplemental oxygen , the patient denies chest pain or cough, patient denies nausea/vomiting or diarrhea and denies any abdominal pain, patient bilateral extremity pain and swelling has decreased in intensity Patient did have a white count of 11.06 and creatinine 0.82 as of 03/03/2023 blood culture negative Objective - Vital Signs Vital signs: Vital Signs Temp 97.7 F 03/05/23 14:00 Pulse 72 03/05/23 14:00 Resp 18 03/05/23 14:00 BP 124/68 03/05/23 14:00 Pulse Ox 98 03/05/23 14:00 FiO2 Intake & Output 03/04/23 03/05/23 03/05/23 18:59 06:59 18:59 Output Total 400 Balance -400 Output: Urine 400 Other: Voiding Method External Catheter Bedside Commode # Voids 1 - Exam GENERAL DESCRIPTION: An elderly female lying in bed in no distress RESPIRATORY SYSTEM: Unlabored breathing , decreased breath sounds at bases HEART: S1 S2 regular rate and rhythm , ABDOMEN: Soft , no tenderness EXTREMITIES: Bilateral lower extremity currently wrapped in Dougie wrap - Labs CBC & Chem 7: 03/03/23 07:01 03/05/23 06:33 Labs: Microbiology - Last 24 Hours (Table) 03/02/23 20:00 Blood Culture - Preliminary Blood Assessment and Plan (1) Bilateral lower leg cellulitis Current Visit: Yes Status: Acute Code(s): L03.116 - CELLULITIS OF LEFT LOWER LIMB; L03.115 - CELLULITIS OF RIGHT LOWER LIMB SNOMED Code(s): 771436714 Plan: Patient presented to hospital with bilateral lower extremity swelling and redness and pain in this patient who do have history of bilateral lower extremity venous results are concerning for cellulitis likely from gram-positive skin adrian such as Streptococcus clinically doubt MRSA or gram-negative infection 2Patient has shown clinical improvement we will reevaluate the legs tomorrow at the time of dressing changes, patient to continue with cefazolin 2 g every 8 hours Dictation was produced using [employer] dictation software. please excuse any grammatical, word or spelling errors. Time with Patient: Less than 30
[2023-03-06] MEDS: LEVOTHYROXINE 100 MCG TAB PO SCH (05:47)
[2023-03-06 06:18] LABS: African American GFR (CKD) 86 (>60 ml/min/1.73 sqM); Non-African American GFR(CKD) 75 (>60 ml/min/1.73 sqM)
[2023-03-06] MEDS: ENOXAPARIN 40 MG/0.4 ML SYRINGE SQ SCH (09:15)
[2023-03-06] MEDS: traMADol 50 MG TAB PO SCH ×4 (09:15→20:33)
[2023-03-06] MEDS: MULTIVITAMINS, THERA 1 EACH TAB PO SCH (09:15)
[2023-03-06] MEDS: ASPIRIN 81 MG PO SCH (09:15)
[2023-03-06] MEDS: atenoloL 50 MG TAB PO SCH (09:15)
[2023-03-06] MEDS: PANTOPRAZOLE 40 MG TABLET PO SCH (09:16)
[2023-03-06] MEDS: NAPROXEN 250 MG TAB PO SCH ×2 (09:16→20:32)
--- NOTE | 2023-03-06 13:21 | P.PN ---
Progress Note - Text 77-year-old female patient came to the emergency room with history of bilateral venous stasis ulcer lower extremity patient has been coming to the wound clinic for follow-up today we have changed the dressing we will use Aquacel silver base of the wound risk granulating the ulcers are involving circumferentially of the lower leg patient is on antibiotic under care of infectious disease dressing should be changed every other day if patient goes home patient has appointment to the wound clinic with the Dr. Simon on March 15 patient will need homecare for change of dressing
--- NOTE | 2023-03-06 18:01 | P.PN ---
Progress Note - Text Progress Note Date: 03/06/23 Chief Complaint: Lower extremity wounds This is a pleasant 77-year-old patient who as just establish herself with Dr. Toney Irving. Patient is at lower extremity wound for some time. Used to 4 at the wound care center and underwent [email or web address], wound care nurse. For the last 6 months patient hasn't been updated. And was taking care of her wounds on her own. More started deteriorating. Having the drainage. Painful. Denies any fever and chills. Appetite is okay. Since the wounds could not be managed at home anymore she decided to come in. Normally uses a cane. Now finding it difficult to walk because lower extremity wounds. March 04: Followed by ID and vascular. On IV Ancef. Possible debridement on Monday by vascular. Patient has venostasis ulcers bilateral lower extremity. March 05: Getting antibiotics. Tolerating diet. Pain control. Pending debridement tomorrow. Discussed with patient March 06: Dressing change was scattered by Dr. Pineda from vascular. Continues with IV Ancef as per ID. Active Medications Aspirin (Aspirin 81 Mg) 81 mg PO DAILY [facility] Last Admin: 03/06/23 09:15 Dose: 81 mg Atenolol (Atenolol 50 Mg Tab) 50 mg PO DAILY [facility] Last Admin: 03/06/23 09:15 Dose: 50 mg Enoxaparin Sodium (Enoxaparin 40 Mg/0.4 Ml Syringe) 40 mg SQ DAILY [facility] Last Admin: 03/06/23 09:15 Dose: 40 mg Cefazolin Sodium 2 gm/ Sodium (Chloride) 50 mls @ 100 mls/hr IVPB Q8HR [facility]; Protocol Last Admin: 03/06/23 16:06 Dose: 100 mls/hr Levothyroxine Sodium (Levothyroxine 100 Mcg Tab) 100 mcg PO DAILY@0630 [facility] Last Admin: 03/06/23 05:47 Dose: 100 mcg Multivitamins (Multivitamins, Thera 1 Each Tab) 1 each PO DAILY [facility] Last Admin: 03/06/23 09:15 Dose: 1 each Naloxone HCl (Naloxone 0.4 Mg/Ml 1 Ml Vial) 0.2 mg IV Q2M PRN PRN Reason: Opioid Reversal Naproxen (Naproxen 250 Mg Tab) 250 mg PO BID [facility] Last Admin: 03/06/23 09:16 Dose: 250 mg Ondansetron HCl (Ondansetron 4 Mg/2 Ml Vial) 4 mg IVP Q8HR PRN PRN Reason: Nausea And Vomiting Pantoprazole Sodium (Pantoprazole 40 Mg Tablet) 40 mg PO AC-BRKFST [facility] Last Admin: 03/06/23 09:16 Dose: 40 mg Tramadol HCl (Tramadol 50 Mg Tab) 50 mg PO QID [facility] Last Admin: 03/06/23 17:08 Dose: 50 mg Past medical history to include: Osteoarthritis, essential hypertension, hypothyroid, GERD, lower extremity wounds Social history: Nonsmoker. . Lives with Physical examination: VITAL SIGNS: 98.6, 66, 16, 93/56, 96% room air GENERAL: , comfortable EYES: Pupils equal. Conjunctiva normal. HEENT: External appearance of nose and ears normal, oral cavity grossly normal. NECK: JVD not raised; masses not palpable. HEART: First and second heart sounds are normal; no edema. LUNGS: Respiratory rate normal; clear to auscultation. ABDOMEN: Soft, nontender, liver spleen not palpable, no masses palpable. PSYCH: Alert and oriented x3; mood and affect normal. MUSCULOSKELETAL:No Clubbing/cyanosis;muscles-grossly intact. OA LOWER extremity: Wounds in both lower extremity -negative dressing More detailed and nursing notes INVESTIGATIONS, reviewed in the clinical context: White count 11.06 hemoglobin 11.9 platelets 352 sodium 138 potassium 4.7 creatinine 0.9 ProBNP 158 EKG tracing personally reviewed by me-normal sinus rhythm. Previous investigations: Lower extremity: Venous reflux present within the right external iliac vein and greater saphenous vein. [January 2022) Assessment and plan: -Acute on chronic lower extremity wounds. Likely venous ulcers. Did receive treatment for 32 weeks at the wound care center. Did not follow for the last 6 months. Progressively getting worse at home. Appears infected. IV Ancef Vascular and ID following -Obesity BMI 35.4 Weight loss measures -Chronic bilateral lower external edema venous insufficiency with known reflux present to the right external iliac vein and the greater saphenous vein. Follow with vascular -Primary osteoarthritis Naproxen twice a day -Essential hypertension Tenormin 50 mg a day -Hypothyroid Synthroid 100 g a day -GERD Lansoprazole Continue local wound care and IV Ancef. Follow with ID and vascular.
[2023-03-07] MEDS: LEVOTHYROXINE 100 MCG TAB PO SCH (06:16)
[2023-03-07] MEDS: PANTOPRAZOLE 40 MG TABLET PO SCH (06:16)
[2023-03-07] MEDS: ASPIRIN 81 MG PO SCH (09:12)
[2023-03-07] MEDS: MULTIVITAMINS, THERA 1 EACH TAB PO SCH (09:12)
[2023-03-07] MEDS: ENOXAPARIN 40 MG/0.4 ML SYRINGE SQ SCH (09:12)
[2023-03-07] MEDS: traMADol 50 MG TAB PO SCH ×4 (09:13→22:26)
[2023-03-07] MEDS: atenoloL 50 MG TAB PO SCH (09:13)
[2023-03-07] MEDS: NAPROXEN 250 MG TAB PO SCH ×2 (09:13→20:30)
--- NOTE | 2023-03-07 13:33 | P.PN ---
Progress Note - Text Progress Note Date: 03/07/23 Chief Complaint: Lower extremity wounds This is a pleasant 77-year-old patient who as just establish herself with Dr. Toney Irving. Patient is at lower extremity wound for some time. Used to 4 at the wound care center and underwent [email or web address], wound care nurse. For the last 6 months patient hasn't been updated. And was taking care of her wounds on her own. More started deteriorating. Having the drainage. Painful. Denies any fever and chills. Appetite is okay. Since the wounds could not be managed at home anymore she decided to come in. Normally uses a cane. Now finding it difficult to walk because lower extremity wounds. March 04: Followed by ID and vascular. On IV Ancef. Possible debridement on Monday by vascular. Patient has venostasis ulcers bilateral lower extremity. March 05: Getting antibiotics. Tolerating diet. Pain control. Pending debridement tomorrow. Discussed with patient March 06: Dressing change was scattered by Dr. Pineda from vascular. Continues with IV Ancef as per ID. March 07: Pain control. IV Ancef. Per ID patient to be discharged on Keflex. Looking for discharge to rehab tomorrow. Active Medications Aspirin (Aspirin 81 Mg) 81 mg PO DAILY [facility] Last Admin: 03/07/23 09:12 Dose: 81 mg Atenolol (Atenolol 50 Mg Tab) 50 mg PO DAILY [facility] Last Admin: 03/07/23 09:13 Dose: 50 mg Enoxaparin Sodium (Enoxaparin 40 Mg/0.4 Ml Syringe) 40 mg SQ DAILY [facility] Last Admin: 03/07/23 09:12 Dose: 40 mg Cefazolin Sodium 2 gm/ Sodium (Chloride) 50 mls @ 100 mls/hr IVPB Q8HR [facility]; Protocol Last Admin: 03/07/23 09:11 Dose: 100 mls/hr Levothyroxine Sodium (Levothyroxine 100 Mcg Tab) 100 mcg PO DAILY@0630 [facility] Last Admin: 03/07/23 06:16 Dose: 100 mcg Multivitamins (Multivitamins, Thera 1 Each Tab) 1 each PO DAILY [facility] Last Admin: 03/07/23 09:12 Dose: 1 each Naloxone HCl (Naloxone 0.4 Mg/Ml 1 Ml Vial) 0.2 mg IV Q2M PRN PRN Reason: Opioid Reversal Naproxen (Naproxen 250 Mg Tab) 250 mg PO BID [facility] Last Admin: 03/07/23 09:13 Dose: 250 mg Ondansetron HCl (Ondansetron 4 Mg/2 Ml Vial) 4 mg IVP Q8HR PRN PRN Reason: Nausea And Vomiting Pantoprazole Sodium (Pantoprazole 40 Mg Tablet) 40 mg PO AC-BRKFST [facility] Last Admin: 03/07/23 06:16 Dose: 40 mg Tramadol HCl (Tramadol 50 Mg Tab) 50 mg PO QID [facility] Last Admin: 03/07/23 09:13 Dose: 50 mg Past medical history to include: Osteoarthritis, essential hypertension, hypothyroid, GERD, lower extremity wounds Social history: Nonsmoker. . Lives with Physical examination: VITAL SIGNS: 98.6, 72, 16, 106/69, GENERAL: , comfortable EYES: Pupils equal. Conjunctiva normal. HEENT: External appearance of nose and ears normal, oral cavity grossly normal. NECK: JVD not raised; masses not palpable. HEART: First and second heart sounds are normal; no edema. LUNGS: Respiratory rate normal; clear to auscultation. ABDOMEN: Soft, nontender, liver spleen not palpable, no masses palpable. PSYCH: Alert and oriented x3; mood and affect normal. MUSCULOSKELETAL:No Clubbing/cyanosis;muscles-grossly intact. OA LOWER extremity: Wounds in both lower extremity -negative dressing More detailed and nursing notes INVESTIGATIONS, reviewed in the clinical context: March 06: Procalcitonin 0.10 White count 11.06 hemoglobin 11.9 platelets 352 sodium 138 potassium 4.7 creatinine 0.9 ProBNP 158 EKG tracing personally reviewed by me-normal sinus rhythm. Previous investigations: Lower extremity: Venous reflux present within the right external iliac vein and greater saphenous vein. [January 2022) Assessment and plan: -Acute on chronic lower extremity wounds. Likely venous ulcers. Did receive treatment for 32 weeks at the wound care center. Did not follow for the last 6 months. Progressively getting worse at home. Appears infected.: Improving IV Ancef Vascular and ID following -Obesity BMI 35.4 Weight loss measures -Chronic bilateral lower external edema venous insufficiency with known reflux present to the right external iliac vein and the greater saphenous vein. Follow with Dr. Hoffman Patient will follow up at the wound care center -Primary osteoarthritis Naproxen twice a day -Essential hypertension Tenormin 50 mg a day -Hypothyroid Synthroid 100 g a day -GERD Lansoprazole Continue local wound care and IV Ancef. Plan for DC to rehab tomorrow
--- NOTE | 2023-03-07 14:45 | P.PN ---
Subjective Progress Note Date: 03/06/23 Principal diagnosis: Bilateral lower extremity cellulitis Patient is a 77-year-old female with a past medical history significant for bilateral lower extremity venous stasis ulcer and cellulitis, patient presented to hospital with increasing swelling redness to bilateral lower extremity has been diagnosed with the bilateral lower extremity cellulitis. on today's evaluation that is 03/06/2023, the patient continues to be afebrile, the patient is breathing comfortably on room air and denies any chest pain or cough, patient denies abdominal pain, and denies any nausea/vomiting or diarrhea patient bilateral extremity pain and swelling has decreased in intensity Patient did have a white count of 11.06 as of 03/03/2023, creatinine 0.78 blood culture negative Objective - Vital Signs Vital signs: Vital Signs Temp 98.3 F 03/06/23 07:35 Pulse 66 03/06/23 07:35 Resp 15 03/06/23 07:35 BP 115/70 03/06/23 07:35 Pulse Ox 97 03/06/23 07:35 FiO2 Intake & Output 03/05/23 03/06/23 03/06/23 18:59 06:59 18:59 Other: Voiding Method Bedside Commode Toilet # Voids 2 3 # Bowel Movements 1 - Exam GENERAL DESCRIPTION: An elderly female lying in bed in no distress RESPIRATORY SYSTEM: Unlabored breathing , decreased breath sounds at bases HEART: S1 S2 regular rate and rhythm , ABDOMEN: Soft , no tenderness EXTREMITIES: Bilateral lower extremity swelling and redness has decreased did have superficial ulceration no slough tissue - Labs CBC & Chem 7: 03/03/23 07:01 03/06/23 05:43 Labs: Abnormal Lab Results - Last 24 Hours (Table) 03/06/23 Range/Units 05:43 Procalcitonin 0.10 H (0.02-0.09) ng/mL Microbiology - Last 24 Hours (Table) 03/02/23 20:00 Blood Culture - Preliminary Blood Assessment and Plan (1) Bilateral lower leg cellulitis Current Visit: Yes Status: Acute Code(s): L03.116 - CELLULITIS OF LEFT LOWER LIMB; L03.115 - CELLULITIS OF RIGHT LOWER LIMB SNOMED Code(s): 816264340 Plan: Patient presented to hospital with bilateral lower extremity swelling and redness and pain in this patient who do have history of bilateral lower extremity venous results are concerning for cellulitis likely from gram-positive skin adrian such as Streptococcus clinically doubt MRSA or gram-negative infection 2Patient has shown clinical improvement we will continue with cefazolin 2 g every 8 hours, and plan to finish therapy with oral Keflex Dictation was produced using [employer] software. please excuse any grammatical, word or spelling errors. Time with Patient: Less than 30
--- NOTE | 2023-03-07 14:46 | P.PN ---
Subjective Progress Note Date: 03/07/23 Principal diagnosis: Bilateral lower extremity cellulitis Patient is a 77-year-old female with a past medical history significant for bilateral lower extremity venous stasis ulcer and cellulitis, patient presented to hospital with increasing swelling redness to bilateral lower extremity has been diagnosed with the bilateral lower extremity cellulitis. on today's evaluation that is 03/07/2023, the patient remains to be afebrile, the patient is breathing comfortably on room air without the need for supplemental oxygen and denies any shortness of breath, the patient denies having any chest pain or cough, patient denies nausea/vomiting /diarrhea and no abdominal pain, patient bilateral extremity pain and swelling has decreased in intensity Patient did have a white count of 11.06 as of 03/03/2023, creatinine 0.78 as of yesterday blood culture negative Objective - Vital Signs Vital signs: Vital Signs Temp 98.6 F 03/07/23 13:11 Pulse 72 03/07/23 13:11 Resp 16 03/07/23 13:11 BP 106/69 03/07/23 13:11 Pulse Ox 97 03/07/23 08:00 FiO2 Intake & Output 03/06/23 03/07/23 03/07/23 18:59 06:59 18:59 Other: Voiding Method Toilet Bedside Commode # Voids 2 1 - Exam GENERAL DESCRIPTION: An elderly female lying in bed in no distress RESPIRATORY SYSTEM: Unlabored breathing , decreased breath sounds at bases HEART: S1 S2 regular rate and rhythm , ABDOMEN: Soft , no tenderness EXTREMITIES: Bilateral lower extremity are currently wrapped in Dougie wrap no drainage on the dressing - Labs CBC & Chem 7: 03/03/23 07:01 03/06/23 05:43 Assessment and Plan (1) Bilateral lower leg cellulitis Current Visit: Yes Status: Acute Code(s): L03.116 - CELLULITIS OF LEFT LOWER LIMB; L03.115 - CELLULITIS OF RIGHT LOWER LIMB SNOMED Code(s): 710616162 Plan: Patient presented to hospital with bilateral lower extremity swelling and redness and pain in this patient who do have history of bilateral lower extremity venous results are concerning for cellulitis likely from gram-positive skin adrian such as Streptococcus clinically doubt MRSA or gram-negative infection 2Patient has shown clinical improvement we will continue with cefazolin 2 g every 8 hours while inpatient however plan to finish therapy with oral Keflex 7-10 days on discharge, discussed with admitting physician Dictation was produced using [employer] dictation software. please excuse any grammatical, word or spelling errors. Time with Patient: Less than 30
[2023-03-08] MEDS: LEVOTHYROXINE 100 MCG TAB PO SCH (06:33)
[2023-03-08] MEDS: PANTOPRAZOLE 40 MG TABLET PO SCH (06:33)
[2023-03-08] MEDS: ENOXAPARIN 40 MG/0.4 ML SYRINGE SQ SCH (09:34)
[2023-03-08] MEDS: MULTIVITAMINS, THERA 1 EACH TAB PO SCH (09:35)
[2023-03-08] MEDS: NAPROXEN 250 MG TAB PO SCH (09:35)
[2023-03-08] MEDS: ASPIRIN 81 MG PO SCH (09:35)
[2023-03-08] MEDS: traMADol 50 MG TAB PO SCH ×2 (09:36→12:24)
[2023-03-08] MEDS: atenoloL 50 MG TAB PO SCH (09:36)
--- NOTE | 2023-03-08 13:39 | P.DS ---
Providers Date of admission: 03/02/23 18:58 Expected date of discharge: 03/08/23 Attending physician: David Rodríguez Consults: 03/03/23 12:37 Consult Physician Routine Consulting Provider: Singh Hoffman Consult Reason/Comments: LE wounds Do you want consulting provider notified?: Yes Consult Physician Routine Consulting Provider: Whitney Esparza Consult Reason/Comments: LE wounds Do you want consulting provider notified?: Yes Primary care physician: Toney Irving [facility] Course: Chief Complaint: Lower extremity wounds This is a pleasant 77-year-old patient who as just establish herself with Dr. Toney Irving. Patient is at lower extremity wound for some time. Used to 4 at the wound care center and underwent [email or web address] [email or web address], wound care nurse. For the last 6 months patient hasn't been updated. And was taking care of her wounds on her own. More started deteriorating. Having the drainage. Painful. Denies any fever and chills. Appetite is okay. Since the wounds could not be managed at home anymore she decided to come in. Normally uses a cane. Now finding it difficult to walk because lower extremity wounds. March 04: Followed by ID and vascular. On IV Ancef. Possible debridement on Monday by vascular. Patient has venostasis ulcers bilateral lower extremity. March 05: Getting antibiotics. Tolerating diet. Pain control. Pending debridement tomorrow. Discussed with patient March 06: Dressing change was scattered by Dr. Pineda from vascular. Continues with IV Ancef as per ID. March 07: Pain control. IV Ancef. Per ID patient to be discharged on Keflex. Looking for discharge to rehab tomorrow. March 08: Patient being discharged to rehab at [facility]. Discussed with social security benefits interviewer on. Patient will complete 10 days of Keflex. For wound care follow-up at the wound care center with Dr. bloom. Pain Controlled. Questions answered. Discussion and discharge planning more than 35 minutes Past medical history to include: Osteoarthritis, essential hypertension, hypothyroid, GERD, lower extremity wounds Social history: Nonsmoker. . Lives with Physical examination: VITAL SIGNS: 98.6, 94, 17, 126/63, 97% room air GENERAL: , comfortable EYES: Pupils equal. Conjunctiva normal. HEENT: External appearance of nose and ears normal, oral cavity grossly normal. NECK: JVD not raised; masses not palpable. HEART: First and second heart sounds are normal; no edema. LUNGS: Respiratory rate normal; clear to auscultation. ABDOMEN: Soft, nontender, liver spleen not palpable, no masses palpable. PSYCH: Alert and oriented x3; mood and affect normal. MUSCULOSKELETAL:No Clubbing/cyanosis;muscles-grossly intact. OA LOWER extremity: Wounds in both lower extremity -negative dressing More detailed and nursing notes INVESTIGATIONS, reviewed in the clinical context: March 06: Procalcitonin 0.10 White count 11.06 hemoglobin 11.9 platelets 352 sodium 138 potassium 4.7 creatinine 0.9 ProBNP 158 EKG tracing personally reviewed by me-normal sinus rhythm. Previous investigations: Lower extremity: Venous reflux present within the right external iliac vein and greater saphenous vein. [January 2022) Assessment and plan: -Acute on chronic lower extremity wounds. Likely venous ulcers. Did receive treatment for 32 weeks at the wound care center. Did not follow for the last 6 months. Progressively getting worse at home. Appears infected.: Improving IV Ancef Complete Keflex 500 mg 4 times a day for 10 days Vascular and ID following Patient to follow-up at wound care center with Dr. bloom -Obesity BMI 35.4 Weight loss measures -Chronic bilateral lower external edema venous insufficiency with known reflux present to the right external iliac vein and the greater saphenous vein. Seen by Dr. Hoffman Patient will follow up at the wound care center, Dr. bloom -Primary osteoarthritis Naproxen twice a day -Essential hypertension Tenormin 50 mg a day -Hypothyroid Synthroid 100 g a day -GERD Lansoprazole -Full code Disposition: Rehab at [facility] Plan - Discharge Summary Discharge Rx Participant: Yes New Discharge Prescriptions: New Cephalexin [Keflex] 500 mg PO Q8HR 10 Days #30 cap traMADol HCl [Ultram] 50 mg PO Q6H PRN #12 tab PRN Reason: Pain Continue Naproxen Sodium [Aleve] 220 mg PO BID Lansoprazole 30 mg PO DAILY Aspirin EC [Ecotrin Low Dose] 81 mg PO DAILY atenoloL [Tenormin] 50 mg PO DAILY Levothyroxine Sodium [Synthroid] 100 mcg PO DAILY Multivit-Min/Iron/Folic/Lutein [Centrum Silver Women Tablet] 1 tab PO DAILY Discharge Medication List Aspirin EC [Ecotrin Low Dose] 81 mg PO DAILY 03/02/23 [History] Lansoprazole 30 mg PO DAILY 03/02/23 [History] Levothyroxine Sodium [Synthroid] 100 mcg PO DAILY 03/02/23 [History] Multivit-Min/Iron/Folic/Lutein [Centrum Silver Women Tablet] 1 tab PO DAILY 03/02/23 [History] Naproxen Sodium [Aleve] 220 mg PO BID 03/02/23 [History] atenoloL [Tenormin] 50 mg PO DAILY 03/02/23 [History] Cephalexin [Keflex] 500 mg PO Q8HR 10 Days #30 cap 03/06/23 [Rx] traMADol HCl [Ultram] 50 mg PO Q6H PRN #12 tab 03/08/23 [Rx] Follow up Appointment(s)/Referral(s): Toney Irving MD [Primary Care Provider] - 1-2 days Whitney Esparza MD [STAFF PHYSICIAN] - 1 Week Activity/Diet/Wound Care/Special Instructions: wound care orders per dr hoffman f/u wound care center with dr bloom
[2023-03-08 15:13] VITALS: BP 118/58; PULSE 71; RESP 16; TEMP 98.7
--- NOTE | 2023-03-14 14:20 | P.PN ---
Subjective Progress Note Date: 03/08/23 Principal diagnosis: Bilateral lower extremity cellulitis Patient is a 77-year-old female with a past medical history significant for bilateral lower extremity venous stasis ulcer and cellulitis, patient presented to hospital with increasing swelling redness to bilateral lower extremity has been diagnosed with the bilateral lower extremity cellulitis. on today's evaluation that is 03/08/2023, the patient denies any fever or any chills, the patient is breathing comfortably on room air , the patient denies any shortness of breath, the patient denies having any chest pain or cough, patient denies nausea/vomiting /diarrhea and no abdominal pain, patient bilate ral extremity pain and swelling has decreased in intensity Patient did have a white count of 11.06 as of 03/03/2023, creatinine 0.78 as of 03/06/2023 blood culture negative Objective - Vital Signs Vital signs: Vital Signs Temp 98.6 F 03/08/23 09:22 Pulse 94 03/08/23 09:22 Resp 17 03/08/23 09:22 BP 126/63 03/08/23 09:22 Pulse Ox 97 03/08/23 09:22 FiO2 Intake & Output 03/07/23 03/08/23 03/08/23 18:59 06:59 18:59 Other: Voiding Method Bedside Commode Bedside Commode # Voids 2 3 # Bowel Movements 1 - Exam GENERAL DESCRIPTION: An elderly female lying in bed in no distress RESPIRATORY SYSTEM: Unlabored breathing , decreased breath sounds at bases HEART: S1 S2 regular rate and rhythm , ABDOMEN: Soft , no tenderness EXTREMITIES: Bilateral lower extremity are currently wrapped in Dougie wrap no drainage on the dressing - Labs CBC & Chem 7: 03/03/23 07:01 03/06/23 05:43 Labs: Microbiology - Last 24 Hours (Table) 03/02/23 20:00 Blood Culture - Final Blood Assessment and Plan (1) Bilateral lower leg cellulitis Status: Acute Code(s): L03.116 - CELLULITIS OF LEFT LOWER LIMB; L03.115 - CELLULITIS OF RIGHT LOWER LIMB SNOMED Code(s): 768609252 Plan: Patient presented to hospital with bilateral lower extremity swelling and redness and pain in this patient who do have history of bilateral lower extremity venous results are concerning for cellulitis likely from gram-positive skin adrian such as Streptococcus clinically doubt MRSA or gram-negative infection 2Patient has shown clinical improvement we will finish therapy with oral Keflex 7 days on discharge, and close outpatient follow-up Dictation was produced using [employer] software. please excuse any grammatical, word or spelling errors. Time with Patient: Less than 30
== END 2023-03-08 14:53 | DRG 603 ==
LOC: EC 17:46 → 4SSUR 18:58
PROVIDERS: ADMIT Hospitalist; ATTEND Hospitalist
DX: L03.115 Cellulitis of right lower limb (principal); I83.218 Varicose veins of right lower extremity with both ulcer of other part of lower extremity and inflammation; L97.811 Non-pressure chronic ulcer of other part of right lower leg limited to breakdown of skin; L97.821 Non-pressure chronic ulcer of other part of left lower leg limited to breakdown of skin; I83.228 Varicose veins of left lower extremity with both ulcer of other part of lower extremity and inflammation; L03.116 Cellulitis of left lower limb; G89.29 Other chronic pain; I10 Essential (primary) hypertension; E03.9 Hypothyroidism, unspecified; M19.91 Primary osteoarthritis, unspecified site; K21.9 Gastro-esophageal reflux disease without esophagitis; R32 Unspecified urinary incontinence; E66.9 Obesity, unspecified; Z68.35 Body mass index [BMI] 35.0-35.9, adult; Z79.82 Long term (current) use of aspirin; Z79.890 Hormone replacement therapy; Z79.1 Long term (current) use of non-steroidal anti-inflammatories (NSAID); Z79.899 Other long term (current) drug therapy
CPT/HCPCS: 80053; 82565; 83605; 83735; 83880; 84100; 84145; 84484; 85025; 85610; 85730; 87040; 93005; 94760; 96365; 96366; 96367; 96372; 96375; 96376; 99285

== ENCOUNTER 2023-08-05 20:45 | Inpatient (IN) | payer MEDICARE, OTHER ==
[2023-08-05 21:08] LABS: Glucose,Whole Blood 121 mg/dL (70-110)
--- NOTE | 2023-08-05 21:19 | ED ---
General Adult HPI - General Source: patient, EMS, RN notes reviewed, old records reviewed Mode of arrival: EMS <Toney Pablo - Last Filed: 08/05/23 21:51> - General Source: patient, EMS, RN notes reviewed, old records reviewed, Caregiver Mode of arrival: EMS Limitations: no limitations - History of Present Illness -: hour(s) Location: face, neck, right, upper extremity, lower extremity Severity scale (1-10): 10 Consistency: constant Improves with: none Worsens with: none Associated Symptoms: denies other symptoms <Shayan Blakely - Last Filed: 08/05/23 23:32> - General Chief complaint: Neuro Symptoms/Deficit Stated complaint: Stroke Time Seen by Provider: 08/05/23 21:00 - History of Present Illness Initial comments: Patient is a 77-year-old female presents emergency department as a code stroke. Has a history of hypertension, hyperlipidemia, GERD. Patient does take aspirin on a daily basis. She is not on any blood thinners. Denies any chest pain, shortness of breath, abdominal pain, nausea, vomiting. Denies any other acute complaints at this time. Symptoms began at 10 AM. Have been unchanged , but slightly more apparent in the right arm patient states since that time. No significant change the last few hours. Presents for further evaluation at this time. Is complaining of right arm and right leg weakness. Endorses right facial droop as well as some mild slurred speech. Denies any sensory deficits. Has no other acute complaints. Last known well was 10 AM and was seen by her . (Toney Pablo) This is a 77-year-old female to the ER for evaluation, patient is code stroke, with persistent right-sided facial droop right-sided arm and leg weakness (Shayan Blakely) - Related Data Home Medications Medication Instructions Recorded Confirmed Aspirin EC [Ecotrin Low Dose] 81 mg PO DAILY 03/02/23 08/05/23 Lansoprazole 30 mg PO DAILY 03/02/23 08/05/23 Levothyroxine Sodium [Synthroid] 100 mcg PO DAILY 03/02/23 08/05/23 Multivit-Min/Iron/Folic/Lutein 1 tab PO DAILY 03/02/23 08/05/23 [Centrum Silver Women Tablet] Naproxen Sodium [Aleve] 220 mg PO DAILY 03/02/23 08/05/23 atenoloL [Tenormin] 50 mg PO DAILY 03/02/23 08/05/23 Allergies Allergy/AdvReac Type Severity Reaction Status Date / Time No Known Allergies Allergy Verified 08/05/23 22:00 Review of Systems ROS Other: All systems not noted in ROS Statement are negative. <Toney Pablo - Last Filed: 08/05/23 21:51> ROS Other: All systems not noted in ROS Statement are negative. <Shayan Blakely - Last Filed: 08/05/23 23:32> ROS Statement: Those systems with pertinent positive or pertinent negative responses have been documented in the HPI. Review of Systems: CONST: Denies fever EYES: Denies blurry vision ENT: Denies nasal congestion C/V: Denies Chest pain RESP: Denies shortness of breath GI: Denies abdominal pain : Denies dysuria SKIN: Denies rash. MSK: Denies joint pain. NEURO: Endorses right-sided weakness, facial droop (Toney Pablo) Past Medical History Past Medical History: GERD/Reflux, Hyperlipidemia, Hypertension, Osteoarthritis (OA) Additional Past Medical History / Comment(s): Leg wounds and weeping History of Any Multi-Drug Resistant Organisms: None Reported Additional Past Surgical History / Comment(s): left breast lumpectomy, right ankle surgery Past Anesthesia/Blood Transfusion Reactions: No Reported Reaction Past Psychological History: No Psychological Hx Reported Smoking Status: Never smoker Past Alcohol Use History: Daily Past Drug Use History: None Reported <Toney Pablo - Last Filed: 08/05/23 21:51> General Exam <Toney Pablo - Last Filed: 08/05/23 21:51> General appearance: alert, in no apparent distress Head exam: Present: atraumatic, normocephalic, normal inspection Eye exam: Present: normal appearance, PERRL, EOMI. Absent: scleral icterus, conjunctival injection, periorbital swelling ENT exam: Present: normal exam, mucous membranes moist Neck exam: Present: normal inspection. Absent: tenderness, meningismus, lymphadenopathy Respiratory exam: Present: normal lung sounds bilaterally. Absent: respiratory distress, wheezes, rales, rhonchi, stridor Cardiovascular Exam: Present: regular rate, normal rhythm, normal heart sounds. Absent: systolic murmur, diastolic murmur, rubs, gallop, clicks GI/Abdominal exam: Present: soft, normal bowel sounds. Absent: distended, tenderness, guarding, rebound, rigid Extremities exam: Present: normal inspection, full ROM, normal capillary refill. Absent: tenderness, pedal edema, joint swelling, calf tenderness Back exam: Present: normal inspection Neurological exam: Present: alert, oriented X3, CN II-XII intact Psychiatric exam: Present: normal affect, normal mood Skin exam: Present: warm, dry, intact, normal color. Absent: rash <Shayan Blakely - Last Filed: 08/05/23 23:32> - General Exam Comments Initial Comments: General: Appears in no acute distress. HEAD: Normal with no signs of head trauma. EYES: PERRLA, EOMI, conjunctiva normal, no discharge. ENT: Hearing grossly intact, normal oropharynx. RESPIRATORY: Clear breath sounds bilaterally. No wheezes, rales, or rhonchi. C/V: Regular rate and rhythm. S1 and S2 auscultated, no edema, peripheral pulses 2+ and intact throughout ABD: Abd is soft, nontender, nondistended EXT: Normal range of motion, no obvious deformity SKIN: No rashes or lesions observed on exposed skin. NEURO: Alert and oriented x 4. NIH is 8. Patient receives 1 point for dysarthria, 2 points for limb ataxia in the right upper extremity and right lower extremity, 2 points for the right leg motor drift, 2 points for the right arm motor drift, 1 point for facial palsy on the right. (Toney Pablo) Course <Shayan Blakely - Last Filed: 08/05/23 23:32> Vital Signs 08/05/23 08/05/23 08/05/23 20:49 21:19 21:34 Temperature 98.1 F Pulse Rate 85 80 84 Respiratory 20 18 18 Rate Blood Pressure 193/100 191/87 193/85 O2 Sat by Pulse 98 97 98 Oximetry 08/05/23 08/05/23 08/05/23 21:49 22:04 22:19 Temperature Pulse Rate 88 78 81 Respiratory 18 18 13 Rate Blood Pressure 132/91 175/82 162/94 O2 Sat by Pulse 97 97 97 Oximetry 08/05/23 22:34 Temperature Pulse Rate 77 Respiratory 15 Rate Blood Pressure 158/74 O2 Sat by Pulse 98 Oximetry - Reevaluation(s) Reevaluation #1: 08/05/23 23:30 Medical records reviewed (Shayan Blakely) Reevaluation #2: 08/05/23 23:30 Patient symptoms are unchanged unimproved 08/05/23 23:32 Patient was not a tPA candidate secondary to onset of symptoms at 10 AM Patient was also found to be not a interventional candidate as well (Shayan Blakely) Reevaluation #3: 08/05/23 23:30 Patient informed of results questions answered (Shayan Blakely) Reevaluation #4: Was pt. sent in by a medical professional or institution (DESEAN Cormier, BODY BUILDER, urgent care, hospital, or half-way...) When possible be specific @ -no Did you speak to anyone other than the patient for history (EMS, parent, family, police, friend...)? What history was obtained from this source @ -no Did you review nursing and triage notes (agree or disagree)? Why? @ -agree Are old charts reviewed (outside hosp., previous admission, EMS record, old EKG, old radiological studies, urgent care reports/EKG's, half-way records)? Rep ort findings @ -yes Differential Diagnosis (chest pain, altered mental status, abdominal pain women, abdominal pain men, vaginal bleeding, weakness, fever, dyspnea, syncope, headache, dizziness, GI bleed, back pain, seizure, CVA, palpatations, mental health, musculoskeletal)? @ -prior EKG interpreted by me (3pts min.). @ -yes X-rays interpreted by me (1pt min.). @ -yes negative for acute disease CT interpreted by me (1pt min.). @ -no U/S interpreted by me (1pt. min.). @ -no What testing was considered but not performed or refused? (CT, X-rays, U/S, labs)? Why? @ -none What meds were considered but not given or refused? Why? @ -none Did you discuss the management of the patient with other professionals (professionals i.e. DESEAN Cormier, BODY BUILDER, lab, RT, psych nurse, social sciences lecturer, cellular equipment repairer, t eacher, chief contract officer, employment case manager)? Give summary @ -no Was smoking cessation discussed for >3mins.? @ -no Was critical care preformed (if so, how long)? @ -no Were there social determinants of health that impacted care today? How? (Homelessness, low income, unemployed, alcoholism, drug addiction, transportation, low edu. Level, literacy, decrease access to med. care, prison, rehab)? @ -none Was there de-escalation of care discussed even if they declined (Discuss DNR or withdrawal of care, Hospice)? DNR status @ -no What co-morbidities impacted this encounter? (DM, HTN, Smoking, COPD, CAD, Cancer, CVA, ARF, Chemo, Hep., AIDS, mental health diagnosis, sleep apnea, morbid obesity)? @ -none Was patient admitted / discharged? Hospital course, mention meds given and route, prescriptions, significant lab abnormalities, going to OR and other pertinent info. @ - Undiagnosed new problem with uncertain prognosis? @ -no Drug Therapy requiring intensive monitoring for toxicity (Heparin, Nitro, Insulin, Cardizem)? @ -no Were any procedures done? @ -no Diagnosis/symptom? @ - Acute, or Chronic, or Acute on Chronic? @ -Acute Uncomplicated (without systemic symptoms) or Complicated (systemic symptoms)? @ -Complicated Side effects of treatment? @ -no Exacerbation, Progression, or Severe Exacerbation? @ -exacerbation Poses a threat to life or bodily function? How? (Chest pain, USA, [place], pneumonia, PE, COPD, DKA, ARF, appy, cholecystitis, CVA, Diverticulitis, Homicidal, Suicidal, threat to staff... and all critical care pts) @ -yes (Shayan Blakely) Reevaluation #5: Differential CVA Ischemic stroke, hemorrhagic stroke, brain tumor, atypical migraine, Wernicke's encephalopathy, seizure, multiple sclerosis, meningitis, encephalitis, hypoglycemia, Guillain-Nixon, electrolytes disturbance, myasthenia gravis.... This is not meant to be an all-inclusive list (Shayan Blakely) - Consultations Consultation #1: Spoke with [facility] who will admit this patient (Shayan Blakely) Medical Decision Making - Lab Data Result diagrams: 08/05/23 21:17 - EKG Data -: EKG Interpreted by Me <Toney Pablo - Last Filed: 08/05/23 21:51> - Lab Data Result diagrams: 08/05/23 21:17 08/05/23 21:17 - Radiology Data Radiology results: report reviewed (CT brain and CTA head neck negative for acute disease), image reviewed <Shayan Blakely - Last Filed: 08/05/23 23:32> - Medical Decision Making Was pt. sent in by a medical professional or institution (, PA, BODY BUILDER, urgent care, hospital, or half-way...) When possible be specific @ -No Did you speak to anyone other than the patient for history (EMS, parent, family, police, friend...)? What history was obtained from this source @ -No Did you review nursing and triage notes (agree or disagree)? Why? @ -I reviewed and agree with nursing and triage notes Were old charts reviewed (outside hosp., previous admission, EMS record, old EKG, old radiological studies, urgent care reports/EKG's, half-way records)? Report findings @ -Old charts reviewed Differential Diagnosis (chest pain, altered mental status, abdominal pain women, abdominal pain men, vaginal bleeding, weakness, fever, dyspnea, syncope, headache, dizziness, GI bleed, back pain, seizure, CVA, palpatations, mental health, musculoskeletal)? @ -Differential CVA Ischemic stroke, hemorrhagic stroke, brain tumor, atypical migraine, Wernicke's encephalopathy, seizure, multiple sclerosis, meningitis, encephalitis, hypoglycemia, Guillain-Nixon, electrolytes disturbance, myasthenia gravis.... This is not meant to be an all-inclusive list EKG interpreted by me (3pts min.). @ -As above X-rays interpreted by me (1pt min.). @ -Pending CT interpreted by me (1pt min.). @ -Pending U/S interpreted by me (1pt. min.). @ -None done What testing was considered but not performed or refused? (CT, X-rays, U/S, labs)? Why? @ -None What meds were considered but not given or refused? Why? @ -None Did you discuss the management of the patient with other professionals (professionals i.e. , PA, BODY BUILDER, lab, RT, psych nurse, social sciences lecturer, cellular equipment repairer, teacher, chief contract officer, employment case manager)? Give summary @ -Discussed with on-call neuro crit care physician Dr. Brown who was in agreement with the plan for workup. Was smoking cessation discussed for >3mins.? @ -No Was critical care preformed (if so, how long)? @ -Yes, 35 minutes. Were there social determinants of health that impacted care today? How? (Homelessness, low income, unemployed, alcoholism, drug addiction, transportation, low edu. Level, literacy, decrease access to med. care, prison, rehab)? @ -No Was there de-escalation of care discussed even if they declined (Discuss DNR or withdrawal of care, Hospice)? DNR status @ -No What co-morbidities impacted this encounter? (DM, HTN, Smoking, COPD, CAD, Cancer, CVA, ARF, Chemo, Hep., AIDS, mental health diagnosis, sleep apnea, mo rbid obesity)? @ -None Was patient admitted / discharged? Hospital course, mention meds given and r oute, prescriptions, significant lab abnormalities, going to OR and other pertinent info. @ -Based on patient's presentation and physical exam, patient presents as a code stroke. Vital signs remarkable for mild hypertension with systolics of 190/100. Remainder the vital signs within acceptable limits. NIH is 8. Last known well was 10 AM so she is outside the window for tenecteplase at this time. Patient will not be given thrombolytic therapy as patient is outside of the window and risks for outweigh the benefits at this time. Code stroke was activated. I spoke with on-call neuro crit emergency care attendant Dr. Brown is in agreement the plan. Accu-Chek is within acceptable limits. Imaging is pending. EKG shows no signs of acute ischemia. Dr. Blakely Inherited care of the patient at this time is the end of my shift. He will follow-up on results of imaging and workup. Undiagnosed new problem with uncertain prognosis? @ -No Drug Therapy requiring intensive monitoring for toxicity (Heparin, Nitro, Insulin, Cardizem)? @ -No Were any procedures done? @ -No (Toney Pablo) 77 female to ER for evaluation, code stroke patient with elevated blood pressure. NIH of 8 on arrival with persistent neurological symptoms here in the ER. Patient has no findings on CT scan and will admit for neurological treatment (Shayan Blakely) - Lab Data Lab Results 08/05/23 08/05/23 08/05/23 Range/Units 21:07 21:17 21:17 WBC 6.2 (3.8-10.6) k/uL RBC 4.59 (3.80-5.40) m/uL Hgb 14.4 (11.4-16.0) gm/dL Hct 43.2 (34.0-46.0) % MCV 94.2 (80.0-100.0) fL MCH 31.3 (25.0-35.0) pg MCHC 33.2 (31.0-37.0) g/dL RDW 15.1 (11.5-15.5) % Plt Count 233 (150-450) k/uL MPV 8.3 Neutrophils % 65 % Lymphocytes % 20 % Monocytes % 9 % Eosinophils % 4 % Basophils % 1 % Neutrophils # 4.0 (1.3-7.7) k/uL Lymphocytes # 1.2 (1.0-4.8) k/uL Monocytes # 0.5 (0-1.0) k/uL Eosinophils # 0.2 (0-0.7) k/uL Basophils # 0.0 (0-0.2) k/uL PT 10.6 (10.0-12.5) sec INR 1.0 (<1.2) APTT 25.3 (22.0-30.0) sec Sodium (137-145) mmol/L Potassium (3.5-5.1) mmol/L Chloride (98-107) mmol/L Carbon Dioxide (22-30) mmol/L Anion Gap mmol/L BUN (7-17) mg/dL Creatinine (0.52-1.04) mg/dL Est GFR (CKD-EPI)AfAm (>60 ml/min/1.73 sqM) Est GFR (CKD-EPI)NonAf (>60 ml/min/1.73 sqM) Glucose (74-99) mg/dL POC Glucose (mg/dL) 121 H (70-110) mg/dL POC Glu Doubler Operator ID Saji Guzman Calcium (8.4-10.2) mg/dL Total Bilirubin (0.2-1.3) mg/dL AST (14-36) U/L ALT (4-34) U/L Alkaline Phosphatase (38-126) U/L Creatine Kinase (30-135) U/L Troponin I (0.000-0.034) ng/mL Total Protein (6.3-8.2) g/dL Albumin (3.5-5.0) g/dL 08/05/23 08/05/23 Range/Units 21:17 21:17 WBC (3.8-10.6) k/uL RBC (3.80-5.40) m/uL Hgb (11.4-16.0) gm/dL Hct (34.0-46.0) % MCV (80.0-100.0) fL MCH (25.0-35.0) pg MCHC (31.0-37.0) g/dL RDW (11.5-15.5) % Plt Count (150-450) k/uL MPV Neutrophils % % Lymphocytes % % Monocytes % % Eosinophils % % Basophils % % Neutrophils # (1.3-7.7) k/uL Lymphocytes # (1.0-4.8) k/uL Monocytes # (0-1.0) k/uL Eosinophils # (0-0.7) k/uL Basophils # (0-0.2) k/uL PT (10.0-12.5) sec INR (<1.2) APTT (22.0-30.0) sec Sodium 139 (137-145) mmol/L Potassium 4.7 (3.5-5.1) mmol/L Chloride 109 H (98-107) mmol/L Carbon Dioxide 24 (22-30) mmol/L Anion Gap 6 mmol/L BUN 18 H (7-17) mg/dL Creatinine 0.71 (0.52-1.04) mg/dL Est GFR (CKD-EPI)AfAm >90 (>60 ml/min/1.73 sqM) Est GFR (CKD-EPI)NonAf 84 (>60 ml/min/1.73 sqM) Glucose 115 H (74-99) mg/dL POC Glucose (mg/dL) (70-110) mg/dL POC Glu Doubler Operator ID Calcium 9.5 (8.4-10.2) mg/dL Total Bilirubin 0.8 (0.2-1.3) mg/dL AST 38 H (14-36) U/L ALT 17 (4-34) U/L Alkaline Phosphatase 151 H (38-126) U/L Creatine Kinase 67 (30-135) U/L Troponin I <0.012 (0.000-0.034) ng/mL Total Protein 7.5 (6.3-8.2) g/dL Albumin 3.9 (3.5-5.0) g/dL - EKG Data EKG Comments: 12-lead Electrocardiogram Interpretation Note EKG was reviewed and interpreted by myself. 12-lead ECG performed at 2103 is interpreted by me as revealing normal sinus rhythm at a rate of 81 beats per minute. [place] is normal. VT interval is 161 ms, QRS duration is 81 ms, QTc is 401 ms.. There were no ST or T wave abnormalities to suggest myocardial ischemia or injury. R wave progression across the precordium was satisfactory. By my interpretation this EKG is non-diagnostic for acute ischemia. (Toney Pablo) Critical Care Time Critical Care Time: Yes Total Critical Care Time: 35 <Toney Pablo - Last Filed: 08/05/23 21:51> Critical Care Time: Yes (31) <Shayan Blakely - Last Filed: 08/05/23 23:32> Disposition <Toney Pablo - Last Filed: 08/05/23 21:51> Is patient prescribed a controlled substance at d/c from ED?: No Time of Disposition: 22:50 <Shayan Blakely - Last Filed: 08/05/23 23:32> Clinical Impression: Cerebrovascular accident (CVA) Disposition: ADMITTED IP TO THIS HOSP Condition: Serious
[2023-08-05 21:38] LABS: Basophils % (A) 1 %; Eosinophils # (A) 0.2 k/uL (0-0.7); Eosinophils % (A) 4 %; HCT 43.2 % (34.0-46.0); HGB 14.4 gm/dL (11.4-16.0); Lymphocytes # (A) 1.2 k/uL (1.0-4.8); Lymphocytes % (A) 20 %; MCH 31.3 pg (25.0-35.0); MCHC 33.2 g/dL (31.0-37.0); MCV 94.2 fL (80.0-100.0); Mean Platelet Volume 8.3; Monocytes # (A) 0.5 k/uL (0-1.0); Monocytes % (A) 9 %; Neutrophils % (A) 65 %; Platelet Count 233 k/uL (150-450); RBC 4.59 m/uL (3.80-5.40); RDW 15.1 % (11.5-15.5); WBC 6.2 k/uL (3.8-10.6)
[2023-08-05 21:46] LABS: Partial Thromboplastin Time 25.3 sec (22.0-30.0); Prothrombin Time 10.6 sec (10.0-12.5)
--- NOTE | 2023-08-05 21:47 | CT ---
EXAMINATION TYPE: CODE STROKE: CT brain wo contr CT DLP: 1154.6 mGycm, Automated exposure control for dose reduction was used. DATE OF EXAM: 08/05/2023 9:38 PM COMPARISON: None. CLINICAL INDICATION:Female, 77 years old with history of Neuro deficit, acute, stroke suspected, Righ t sided weakness. TECHNIQUE: Brain: Axial CT images of the brain were obtained with coronal and sagittal reformats created and rev iewed. Contrast used: None. Oral contrast used: None. FINDINGS: Brain: Extra-axial spaces: No abnormal extra-axial fluid collections. Ventricular system: Within normal limits Cerebral parenchyma: No acute intraparenchymal hemorrhage or mass effect. The west-white junction is well differentiated. Scattered hypoattenuating areas are seen within the white matter. Cerebellum: Unremarkable. Mass effect: No evidence of midline shift. Intracranial vasculature: Atherosclerotic calcifications of the intracranial vessels. Soft tissues: Normal. Calvarium/osseous structures: No depressed skull fracture. Paranasal sinuses and mastoid air cells: Mild scattered paranasal sinus disease. Visualized orbits: Orbital contents are intact. IMPRESSION: 1. No acute intracranial process. 2. Nonspecific white matter changes, likely secondary to chronic small vessel ischemic disease.
[2023-08-05 21:50] LABS: ALT 17 U/L (4-34); African American GFR (CKD) >90 (>60 ml/min/1.73 sqM); Albumin 3.9 g/dL (3.5-5.0); Anion Gap 6 mmol/L; Blood Urea Nitrogen 18 mg/dL (7-17); Calcium 9.5 mg/dL (8.4-10.2); Carbon Dioxide 24 mmol/L (22-30); Chloride 109 mmol/L (98-107); Creatine Kinase 67 U/L (30-135); Glucose 115 mg/dL (74-99); Non-African American GFR(CKD) 84 (>60 ml/min/1.73 sqM); Sodium 139 mmol/L (137-145); Total Bilirubin 0.8 mg/dL (0.2-1.3); Total Protein 7.5 g/dL (6.3-8.2)
[2023-08-05 21:54] LABS: AST 38 U/L (14-36); Alkaline Phosphatase 151 U/L (38-126); Potassium 4.7 mmol/L (3.5-5.1)
--- NOTE | 2023-08-05 21:57 | XR ---
EXAMINATION TYPE: XR chest 2V DATE OF EXAM: 08/05/2023 9:53 PM CLINICAL INDICATION:Female, 77 years old with history of altered mental status; [facility] COMPARISON: None. TECHNIQUE: XR chest 2V Frontal and lateral views of the chest. FINDINGS: Lungs/Pleura: There is no evidence of pleural effusion, focal consolidation, or pneumothorax. Pulmonary vascularity: Unremarkable. Heart/mediastinum: Cardiomediastinal silhouette is unremarkable. Musculoskeletal: No acute osseous pathology. IMPRESSION: No acute cardiopulmonary disease/process.
--- NOTE | 2023-08-05 22:07 | CT ---
EXAMINATION TYPE: CT angio head neck CT DLP: mGycm, Automated exposure control for dose reduction was used. DATE OF EXAM: 08/05/2023 10:01 PM COMPARISON: None. CLINICAL INDICATION:Female, 77 years old with history of Neuro deficit, acute, stroke suspected; [facility], TECHNIQUE: Axially acquired helical CT angiogram of the head and neck was obtained with contrast. Axi al images are supplemented with 3D reconstructions which [facility] NASCET criteria used. Contrast used: 100 mL of Isovue 370 with IV Contrast, Oral contrast used: None. FINDINGS: CTA HEAD: The visualized portions of the internal carotid arteries, middle cerebral arteries, anterior cerebral arteries, and posterior cerebral arteries are patent. The basilar and vertebral arteries are patent. Mild to moderate focal stenosis of the left vertebral artery V4 segment and right vertebral artery V4 segment. Atherosclerotic plaque. CTA NECK: Right Carotid System: The common carotid artery and external carotid artery are patent. The carotid bifurcation demonstrate s no evidence of hemodynamically significant stenosis. The remaining portions of the internal carotid artery demonstrate normal size without significant narrowing. Tortuous course with partial retrophar yngeal course of the internal carotid artery. Left Carotid System: The common carotid artery and external carotid artery are patent. The carotid bifurcation demonstrate s no evidence of hemodynamically significant stenosis. The remaining portions of the internal carotid artery demonstrate normal size without significant narrowing. Vertebral arteries are patent without evidence hemodynamically significant stenosis. There is a three-vessel aortic arch. The origins of the great vessels are patent. No evidence of hemo dynamically significant stenosis. Upper thorax: Unremarkable. IMPRESSION: 1. No evidence of dissection of the cervical internal carotid arteries or vertebral arteries or any e vidence of significant stenosis at the carotid bifurcations. 2. No evidence of intracranial high-grade stenosis or intracranial aneurysm.
[2023-08-05] MEDS ORDERED: ONDANSETRON 4 MG/2 ML VIAL IVP PRN (22:52)
[2023-08-05] MEDS ORDERED: NALOXONE 0.4 MG/ML 1 ML VIAL IV PRN (22:52)
[2023-08-05] MEDS: ASPIRIN 325 MG TAB PO STA (23:56)
[2023-08-05] MEDS: SODIUM CHLORIDE 0.9% 1,000 ML IV SCH (23:56)
[2023-08-06 08:32] LABS: Appearance,Urine Clear (Clear); Bilirubin,Urine Negative (Negative); Blood,Urine Negative (Negative); Color,Urine Colorless; Glucose,Urine (UA) Negative (Negative); Ketones,Urine Negative (Negative); Leukocyte Esterase,Urine Negative (Negative); Nitrite,Urine Negative (Negative); PH, Urine 6.5 (5.0-8.0); Protein,Urine Negative (Negative); Specific Gravity,Urine 1.037 (1.001-1.035); Urobilinogen,Urine <2.0 mg/dL (<2.0)
[2023-08-06] MEDS: LEVOTHYROXINE 100 MCG TAB PO SCH (08:49)
[2023-08-06] MEDS: ASPIRIN 325 MG TAB PO SCH (08:49)
[2023-08-06] MEDS: atenoloL 50 MG TAB PO SCH (08:49)
[2023-08-06 09:02] LABS: Amphetamine Screen,Urine Not Detected (NotDetected); Barbiturate Screen,Urine Not Detected (NotDetected); Benzodiazepines Screen,Urine Not Detected (NotDetected); Cocaine Screen,Urine Not Detected (NotDetected); Methadone Screen, Urine Not Detected (NotDetected); Opiate Screen,Urine Not Detected (NotDetected); Oxycodone Screen, Urine Not Detected (NotDetected); Phencyclidine Screen,Urine Not Detected (NotDetected); Tricyclic Antidepressant,Urine Not Detected (NotDetected); Urn Cannabinoid Scrn Not Detected (NotDetected)
[2023-08-06 11:15] LABS: Basophils % (A) 1 %; Eosinophils # (A) 0.2 k/uL (0-0.7); Eosinophils % (A) 3 %; HCT 40.6 % (34.0-46.0); HGB 13.2 gm/dL (11.4-16.0); Lymphocytes # (A) 1.2 k/uL (1.0-4.8); Lymphocytes % (A) 20 %; MCH 30.9 pg (25.0-35.0); MCHC 32.5 g/dL (31.0-37.0); Monocytes # (A) 0.4 k/uL (0-1.0); Monocytes % (A) 7 %; Neutrophils # (A) 4.1 k/uL (1.3-7.7); Neutrophils % (A) 67 %; Platelet Count 222 k/uL (150-450); RBC 4.28 m/uL (3.80-5.40); RDW 15.2 % (11.5-15.5); WBC 6.1 k/uL (3.8-10.6)
[2023-08-06 11:21] LABS: ALT 18 U/L (4-34); AST 27 U/L (14-36); African American GFR (CKD) >90 (>60 ml/min/1.73 sqM); Albumin 3.4 g/dL (3.5-5.0); Alkaline Phosphatase 128 U/L (38-126); Anion Gap 9 mmol/L; Blood Urea Nitrogen 13 mg/dL (7-17); Calcium 8.9 mg/dL (8.4-10.2); Carbon Dioxide 22 mmol/L (22-30); Chloride 110 mmol/L (98-107); Glucose 152 mg/dL (74-99); Magnesium 1.8 mg/dL (1.6-2.3); Non-African American GFR(CKD) 86 (>60 ml/min/1.73 sqM); Phosphorus 3.3 mg/dL (2.5-4.5); Sodium 141 mmol/L (137-145); Total Bilirubin 0.9 mg/dL (0.2-1.3); Total Protein 6.6 g/dL (6.3-8.2)
--- NOTE | 2023-08-06 14:13 | P.HPIM ---
History of Present Illness H&P Date: 08/06/23 History of present illness; patient is a 77-year-old lady with past medical history significant for hypertension, hyperlipidemia, GERD came to the ER because of right-sided weakness and facial droop. Patient was last seen well at 10 AM in the morning, patient stated that she was all right before that when she started noticing that her right side was weak. Patient had weakness of right upper and lower extremity. There was also right facial droop associate with some slurred speech. There was no complaint of any loss of consciousness. Denied any palpitation. There is no complaint of orthopnea or PND. There was no complaint chest pain or shortness of breath. Because of this right-sided we akness, patient was brought to the ER Initial lab work done in the ER showed WBC 6.2, hemoglobin 14.4, platelet count 233, sodium 139, potassium 4.7, BUN 18, creatinine 0.71, bilirubin 0.8, AST 38, alk phos 151 UA negative for any infection Urine drug screen also negative EKG done in the ER showed heart rate of 81 , no ST segment elevation or depression seen, no T-wave inversions seen. Chest x-ray done in the ER no acute cardiopulmonary process CT head done showed no acute intracranial process, nonspecific white matter changes, likely secondary to chronic small vessel ischemic disease CTA head and neck done showed no significant stenosis, aneurysm or thrombus in the intracranial circulation In the ER, patient blood pressure was 190/100, NIH was 8, patient was outside the window for TNK, case was discussed with on-call interventional neurologist and he agreed with it Patient admitted to internal medicine service REVIEW OF SYSTEMS: CONSTITUTIONAL: No fever, no malaise, no fatigue. HEENT: No recent visual problems or hearing problems. Denied any sore throat. CARDIOVASCULAR: No chest pain, orthopnea, PND, no palpitations, no syncope. PULMONARY: No shortness of breath, no cough, no hemoptysis. GASTROINTESTINAL: No diarrhea, no nausea, no vomiting, no abdominal pain. NEUROLOGICAL: As mentioned above HEMATOLOGICAL: Denies any bleeding or petechiae. GENITOURINARY: Denies any burning micturition, frequency, or urgency. MUSCULOSKELETAL/RHEUMATOLOGICAL: Denies any joint pain, swelling, or any muscle pain. ENDOCRINE: Denies any polyuria or polydipsia. The rest of the 14-point review of systems is negative. PHYSICAL EXAMINATION: GENERAL: The patient is alert and oriented x3, not in any acute distress. Well developed, well nourished. HEENT: Pupils are round and equally reacting to light. EOMI. No scleral icterus. No conjunctival pallor. Normocephalic, atraumatic. No pharyngeal erythema. No thyromegaly. CARDIOVASCULAR: S1 and S2 present. No murmurs, rubs, or gallops. PULMONARY: Chest is clear to auscultation, no wheezing or crackles. ABDOMEN: Soft, nontender, nondistended, normoactive bowel sounds. No palpable organomegaly. MUSCULOSKELETAL: No joint swelling or deformity. EXTREMITIES: No cyanosis, clubbing, or pedal edema. NEUROLOGICAL: Muscle strength is 2 x 5 in right upper extremity and 4 x 5 in right lower and 5/5 in left side. Right facial droop seen SKIN: No rashes. Assessment and plan Acute CVA Hypertension Hyperlipidemia Hypothyroidism GERD Monitor vital signs Monitor CBC Monitor CMP Continue telemetry monitoring Continue neurochecks Continue aspirin, Lipitor Ordered 2D echo Physical therapy consulted Occupational Therapy consulted Speech therapy consulted Allow permissive hypertension for the first 24 to 48 hours. As needed anti hypertensive for blood pressure more than 190/110 Neurology consulted Labs and medication were reviewed.. Continue same treatment. Continue with symptomatic treatment. Resume home medication. Monitor labs and vitals. DVT and GI prophylaxis. Further recommendations as per clinical course of the patient Dictation was produced using [employer] dictation software. please excuse any grammatical, word or spelling errors. Past Medical History Past Medical History: GERD/Reflux, Hyperlipidemia, Hypertension, Osteoarthritis (OA) Additional Past Medical History / Comment(s): Leg wounds and weeping History of Any Multi-Drug Resistant Organisms: None Reported Additional Past Surgical History / Comment(s): left breast lumpectomy, right ankle surgery Past Anesthesia/Blood Transfusion Reactions: No Reported Reaction Past Psychological History: No Psychological Hx Reported Smoking Status: Never smoker Past Alcohol Use History: Daily Past Drug Use History: None Reported Medications and Allergies Home Medications Medication Instructions Recorded Confirmed Type Aspirin EC [Ecotrin Low Dose] 81 mg PO DAILY 03/02/23 08/05/23 History Lansoprazole 30 mg PO DAILY 03/02/23 08/05/23 History Levothyroxine Sodium [Synthroid] 100 mcg PO DAILY 03/02/23 08/05/23 History Multivit-Min/Iron/Folic/Lutein 1 tab PO DAILY 03/02/23 08/05/23 History [Centrum Silver Women Tablet] Naproxen Sodium [Aleve] 220 mg PO DAILY 03/02/23 08/05/23 History atenoloL [Tenormin] 50 mg PO DAILY 03/02/23 08/05/23 History Allergies Allergy/AdvReac Type Severity Reaction Status Date / Time No Known Allergies Allergy Verified 08/05/23 22:00 Physical Exam Vitals: Vital Signs Temp Pulse Resp BP Pulse Ox 08/06/23 07:54 98.1 F 89 18 177/89 97 08/06/23 07:01 90 19 160/84 96 08/06/23 04:49 67 13 160/84 08/06/23 03:00 85 18 160/84 96 08/06/23 01:00 80 18 158/72 97 08/06/23 00:30 74 19 164/74 96 08/06/23 00:00 80 23 178/76 98 08/05/23 23:30 87 16 171/88 97 08/05/23 23:00 82 16 168/68 98 08/05/23 22:34 77 15 158/74 98 08/05/23 22:19 81 13 162/94 97 08/05/23 22:04 78 18 175/82 97 08/05/23 21:49 88 18 132/91 97 08/05/23 21:34 84 18 193/85 98 08/05/23 21:19 80 18 191/87 97 08/05/23 20:49 98.1 F 85 20 193/100 98 Intake and Output 08/05/23 08/06/23 08/06/23 22:59 06:59 14:59 Other: Weight 90.718 kg Results CBC & Chem 7: 08/06/23 10:46 08/06/23 10:46 Labs: Abnormal Lab Results - Last 24 Hours (Table) 08/05/23 08/05/23 08/06/23 Range/Units 21:07 21:17 07:50 Chloride 109 H (98-107) mmol/L BUN 18 H (7-17) mg/dL Glucose 115 H (74-99) mg/dL POC Glucose (mg/dL) 121 H (70-110) mg/dL AST 38 H (14-36) U/L Alkaline Phosphatase 151 H (38-126) U/L Ur Specific [place] 1.037 H (1.001-1.035)
--- NOTE | 2023-08-06 15:05 | CA ---
Transthoracic Echo Report Name: Leyla Quijano Age: 77 Gender: F : 1945 Exam Date: 08/06/2023 09:02 Exam Location: [place] [facility] Ht (in): 62 Wt (lb): 200 Ordering Physician: Shayan Blakely DO Attending/Referring Phys: Vendor Quality Supervisor Zach Byers RDCS Procedure CPT: Indications: Thrombus Cardiac Hx: Technical Quality: Contrast 1: Definity Total Dose (mL): 2 Contrast 2: Total Dose (mL): MEASUREMENTS (Male / Female) Normal Values 2D ECHO LV Diastolic Diameter PLAX 5.2 cm 4.2 - 5.9 / 3.9 - 5.3 cm LV Systolic Diameter PLAX 3.6 cm IVS Diastolic Thickness 1.0 cm 0.6 - 1.0 / 0.6 - 0.9 cm LVPW Diastolic Thickness 1.1 cm 0.6 - 1.0 / 0.6 - 0.9 cm LV Relative Wall Thickness 0.4 LVOT Diameter 1.8 cm Aortic Root Diameter 2.8 cm LA Systolic Diameter LX 4.7 cm 3.0 - 4.0 / 2.7 - 3.8 cm DOPPLER AV Peak Velocity 149.3 cm/s AV Peak Gradient 8.9 mmHg AV Mean Velocity 100.8 cm/s AV Mean Gradient 4.4 mmHg AV Velocity Time Integral 33.0 cm LVOT Peak Velocity 94.6 cm/s LVOT Peak Gradient 3.6 mmHg LVOT Velocity Time Integral 24.5 cm LVOT Stroke Volume 65.8 cm??? LVOT Stroke Volume Index 34.4 ml/m??? LVOT Cardiac Index 2650.9 cm???/min???m??? AV Area Cont Eq vti 2.0 cm??? AV Area Cont Eq pk 1.7 cm??? Mitral E Point Velocity 87.0 cm/s Mitral A Point Velocity 99.8 cm/s Mitral E to A Ratio 0.9 MV Deceleration Time 129.3 ms MV E' Velocity 9.8 cm/s Mitral E to MV E' Ratio 8.8 TR Peak Velocity 285.7 cm/s TR Peak Gradient 32.6 mmHg FINDINGS Left Ventricle Left ventricular ejection fraction is estimated at 50-55 %. No obvious regional wall motion abnormalities. Normal left ventricular wall motion. Right Ventricle Normal right ventricular size. Right ventricular systolic pressure estimated at 37.72 mmhg. Right Atrium Normal right atrial size. Left Atrium Mild to moderately increased left atrial diameter. Mitral Valve Trace mitral regurgitation. Aortic Valve Trileaflet aortic valve. No aortic regurgitation. Tricuspid Valve Mild tricuspid regurgitation. Pulmonic Valve No pulmonic regurgitation. Pericardium Minimal pericardial effusion (normal variant). Aorta Normal size aortic root and proximal ascending aorta. CONCLUSIONS Left ventricular ejection fraction 50-55% RVSP 37 Mild to moderately dilated left atrium Trace mitral regurgitation Mild tricuspid regurgitation Previewed by: Dr. Kang Lewis DO (Electronically Signed) Final Date: 06 August 2023 15:04
[2023-08-06] MEDS: ATORVASTATIN 80 MG TAB PO SCH (20:50)
[2023-08-06] MEDS: CLOPIDOGREL 75 MG TAB PO STA (20:50)
[2023-08-06] MEDS: hydrALAZINE HCL 20 MG/ML 1 ML VIAL IVP PRN (23:52)
--- NOTE | 2023-08-07 02:12 | P.CNNES ---
History of Present Illness Consult date: 08/06/23 Requesting physician: Shayan Blakely Reason for Consult: CVA History of Present Illness: Patient is a 77-year-old right-handed female with history of hypertension, was brought to the hospital by ambulance yesterday at 8:45 PM. for acute stroke symptoms. Patient states that her symptoms started day before yesterday with numbness of the right arm and right leg. Yesterday her symptoms got worse with involvement of the mouth, slurring. By 7 PM she was dragging her right leg in the evening. Later at night she started having slurred speech. Therefore she called the ambulance. As per EMS flow sheet, when they arrived, patient had strokelike symptoms. Patient has right facial droop, with right arm drift and difficult ambulation. Patient's last known well was 10:30 AM when she left for the event. Patient's was alert and oriented 4. She has history of hypertension, cellulitis with poor lower extremity circulation. Patient was unable to ambulate per has difficulty standing with 2 person. But. Patient's glucose was 147 with no diabetic history. Patient denied any recent surgery, falls, trauma. Patient's vitals in the scene was blood pressure 208/89, pulse rate 84, respiration 18, saturation 99%. Vital signs arrival blood pressure 193/100, pulse rate 85 temperature 98.1. patient's blood test shows normal CBC, PT/PTT, normal electrolytes, renal functions, AST is 38 but repeat AST and ALT are normal. Troponin negative. UA negative, urine drug screen negative. EKG, chest x-ray are normal. CT head showed no acute intracranial process. Nonspecific white matter changes, likely secondary to chronic small vessel ischemic disease. I personally reviewed CT head, agree with the findings. Evidence of old lacune in the left caudate. Some small vessel disease. Patient has history of hypertension, which is controlled. Denies diabetes. She is a nonsmoker. She drinks 2 glasses of alcohol a day. No previous history of strokes or TIA. Patient does have history of cellulitis for which she is being treated for last 2 years and the wound center. Patient does take aspirin 81 mg daily for a long time. Review of Systems All review systems unremarkable except as mentioned in HPI. Constitutional: Denies chills, Denies fever Eyes: denies blurred vision, denies diplopia, denies discharge, denies pain, denies loss of vision Ears: deny: decreased hearing, ear discharge Ears, nose, mouth and throat: Denies headache, Denies sore throat Cardiovascular: Denies chest pain, Denies shortness of breath Respiratory: Denies cough, Denies excessive sputum Gastrointestinal: Denies abdominal pain, Denies diarrhea, Denies nausea, Denies vomiting Integumentary: Reports as per HPI (Cellulitis in the lower limbs), Denies rash Neurological: Reports as per HPI Psychiatric: Denies anxiety, Denies depression Past Medical History Past Medical History: CVA/TIA, GERD/Reflux, Hyperlipidemia, Hypertension, Osteoarthritis (OA) Additional Past Medical History / Comment(s): Leg wounds and weeping, new right side weakness and facial droop History of Any Multi-Drug Resistant Organisms: None Reported Additional Past Surgical History / Comment(s): left breast lumpectomy, right ankle surgery Past Anesthesia/Blood Transfusion Reactions: No Reported Reaction Past Psychological History: No Psychological Hx Reported Smoking Status: Never smoker Past Alcohol Use History: Daily Past Drug Use History: None Reported - Past Family History Father Family Medical History: AICD/Pacemaker, Congestive Heart Failure (CHF) Additional Family Medical History / Comment(s): cellulitis Mother Family Medical History: AICD/Pacemaker, Dementia Medications and Allergies Home Medications Medication Instructions Recorded Confirmed Type Aspirin EC [Ecotrin Low Dose] 81 mg PO DAILY 03/02/23 08/05/23 History Lansoprazole 30 mg PO DAILY 03/02/23 08/05/23 History Levothyroxine Sodium [Synthroid] 100 mcg PO DAILY 03/02/23 08/05/23 History Multivit-Min/Iron/Folic/Lutein 1 tab PO DAILY 03/02/23 08/05/23 History [Centrum Silver Women Tablet] Naproxen Sodium [Aleve] 220 mg PO DAILY 03/02/23 08/05/23 History atenoloL [Tenormin] 50 mg PO DAILY 03/02/23 08/05/23 History Allergies Allergy/AdvReac Type Severity Reaction Status Date / Time No Known Allergies Allergy Verified 08/05/23 22:00 Physical Examination - Vital Signs Vital Signs: Vital Signs Temp Pulse Pulse Resp BP BP Pulse Ox 08/06/23 15:20 99.0 F 74 74 16 181/83 181/83 97 08/06/23 13:22 98.8 F 75 20 165/76 95 08/06/23 12:13 77 17 178/80 96 08/06/23 07:54 98.1 F 89 18 177/89 97 08/06/23 07:01 90 19 160/84 96 08/06/23 04:49 67 13 160/84 08/06/23 03:00 85 18 160/84 96 08/06/23 01:00 80 18 158/72 97 08/06/23 00:30 74 19 164/74 96 08/06/23 00:00 80 23 178/76 98 08/05/23 23:30 87 16 171/88 97 08/05/23 23:00 82 16 168/68 98 08/05/23 22:34 77 15 158/74 98 08/05/23 22:19 81 13 162/94 97 08/05/23 22:04 78 18 175/82 97 08/05/23 21:49 88 18 132/91 97 08/05/23 21:34 84 18 193/85 98 08/05/23 21:19 80 18 191/87 97 08/05/23 20:49 98.1 F 85 20 193/100 98 Intake and Output 08/06/23 08/06/23 08/06/23 06:59 14:59 22:59 Intake Total 360 Balance 360 Intake: Oral 360 Other: Voiding Method External Catheter Weight 90.718 kg Patient is an elderly female, very pleasant, in no acute distress. Patient is alert awake oriented to time place and person. Speech is mild to moderately dysarthric, and language functions are normal. Patient can name and repeat very well. No aphasia. Attention, concentration and fund of knowledge is adequate. On cranial nerve examination, pupils are equal, round and reacting to light, visual randolph are full on confrontation, with no neglect on double simultaneous stimulation. Extraocular muscles are intact with no nystagmus. Patient has right facial weakness, central type. Her tongue protrudes to the midline. P alatal elevation and sensation normal, hearing and shoulder shrug decreased on the right, facial sensation normal. On muscle strength testing, patient has barely no movement in the right upper extremity. Normal strength in the left upper extremity. In the lower limbs (right/left) hip flexion 4+/5, ankle dorsiflexion 5/5. Deep tendon reflexes are symmetric diminished and plantar is upgoing on the right Sensory to touch is equal with no neglect on double simultaneous stimulation. Cerebellar function showed no ataxia for [id number] testing the left upper limb, cannot perform with the right. No dysdiadochokinesia. Tone and bulk of muscles normal. Gait deferred.. On general examination, there is no carotid bruit or murmur, S1-S2 audible. Chest is clear on consultation. Abdomen is soft nontender. No organomegaly, bowel sounds present. Peripheral pulses are present. No peripheral edema. Results - Laboratory Findings CBC and BMP: 08/06/23 10:46 08/06/23 10:46 Abnormal Lab Findings: Abnormal Labs 08/05/23 08/05/23 08/06/23 21:07 21:17 07:50 Chloride 109 H BUN 18 H Glucose 115 H POC Glucose (mg/dL) 121 H AST 38 H Alkaline Phosphatase 151 H Albumin Ur Specific [place] 1.037 H 08/06/23 10:46 Chloride 110 H BUN Glucose 152 H POC Glucose (mg/dL) AST Alkaline Phosphatase 128 H Albumin 3.4 L Ur Specific [place] Assessment and Plan Assessment: * Acute ischemic stroke, with right hemiparesis. Possible lacunar stroke from small vessel disease. Patient's current NIH stroke scale is 5. Patient was not a candidate for TNK. No large vessel occlusion noted. * Hypertension * Hyperlipidemia * Cellulitis Plan: * MRI of the brain without contrast, evaluate for acute CVA * 2-D echo revealed left ventricle or EF 50-55%. Mild to moderately dilated left atrium. Trace MR. Trace TR. * CTA head and neck showed: No evidence of dissection of the cervical internal carotid arteries or vertebral arteries or any evidence of significant stenosis of the carotid bifurcations. No evidence of intracranial high-grade stenosis or intracranial aneurysm. * Fasting a.m. lipid panel * Hemoglobin A1c * Permissive hypertension for next 24-48 hours * Patient was taking aspirin 81 mg daily. Patient was loaded with Plavix 300 mg 1 dose, and to be maintained on 75 mg daily. After 21 days, may stop aspirin and continue Plavix. * Neuro checks. * Telemetry monitoring rule out any arrhythmia * PT, OT, speech therapy * DVT prophylaxis: Heparin 5000 units subcu every 8 hours * Dr. Maycol Fraga Will resume neurology service in the morning. Thank you for the consult.
[2023-08-07] MEDS: HEPARIN SODIUM,PORCINE 5,000 UNIT/ML 1 ML VIAL SQ SCH (02:13)
[2023-08-07] MEDS: PANTOPRAZOLE 40 MG TABLET PO SCH (06:20)
[2023-08-07 07:48] LABS: Chol/HDL Ratio 3.39 Ratio; LDL Cholesterol,Calculated 111.8 mg/dL (0.0-131.0)
[2023-08-07] MEDS: CLOPIDOGREL 75 MG TAB PO SCH (09:43)
[2023-08-07] MEDS: MULTIVITAMINS, THERA 1 EACH TAB PO SCH (09:43)
[2023-08-07] MEDS: ASPIRIN 81 MG PO SCH (09:43)
--- NOTE | 2023-08-07 12:35 | P.PN ---
Subjective Progress Note Date: 08/07/23 patient is a 77-year-old lady with past medical history significant for hypertension, hyperlipidemia, GERD came to the ER because of right-sided weakness and facial droop. Patient was last seen well at 10 AM in the morning, patient stated that she was all right before that when she started noticing that her right side was weak. Patient had weakness of right upper and lower extremity. There was also right facial droop associate with some slurred speech. There was no complaint of any loss of consciousness. Denied any palpitation. There is no complaint of orthopnea or PND. There was no complaint chest pain or shortness of breath. Because of this right-sided weakness, patient was brought to the ER Initial lab work done in the ER showed WBC 6.2, hemoglobin 14.4, platelet count 233, sodium 139, potassium 4.7, BUN 18, creatinine 0.71, bilirubin 0.8, AST 38, alk phos 151 UA negative for any infection Urine drug screen also negative EKG done in the ER showed heart rate of 81 , no ST segment elevation or depression seen, no T-wave inversions seen. Chest x-ray done in the ER no acute cardiopulmonary process CT head done showed no acute intracranial process, nonspecific white matter changes, likely secondary to chronic small vessel ischemic disease CTA head and neck done showed no significant stenosis, aneurysm or thrombus in the intracranial circulation In the ER, patient blood pressure was 190/100, NIH was 8, patient was outside the window for TNK, case was discussed with on-call interventional neurologist and he agreed with it Patient admitted to internal medicine service 08/06. Patient seen and examined. 2D echo done showed LVEF of 55%, RVSP of 37, mild to moderate dilated left atrium, mild tricuspid regurg. Still has weakness of right side, slurred speech has improved REVIEW OF SYSTEMS: CONSTITUTIONAL: No fever, no malaise,. CARDIOVASCULAR: No chest pain, no palpitations, no syncope. PULMONARY: No shortness of breath, no cough, GASTROINTESTINAL: No diarrhea, no nausea, no vomiting, no abdominal pain. NEUROLOGICAL: As mentioned above PHYSICAL EXAMINATION: GENERAL: The patient is alert and oriented x3, not in any acute distress. Well developed, well nourished. HEENT: Pupils are round and equally reacting to light. EOMI. No scleral icterus. No conjunctival pallor. Normocephalic, atraumatic. No pharyngeal erythema. No thyromegaly. CARDIOVASCULAR: S1 and S2 present. No murmurs, rubs, or gallops. PULMONARY: Chest is clear to auscultation, no wheezing or crackles. ABDOMEN: Soft, nontender, nondistended, normoactive bowel sounds. No palpable organomegaly. MUSCULOSKELETAL: No joint swelling or deformity. EXTREMITIES: No cyanosis, clubbing, or pedal edema. NEUROLOGICAL: Muscle strength is 1 x 5 in right upper extremity and 4 x 5 in right lower and 5/5 in left side. Right facial droop seen SKIN: No rashes. Assessment and plan Acute CVA Hypertension Hyperlipidemia Hypothyroidism GERD Monitor vital signs Monitor CBC Monitor CMP Continue telemetry monitoring Continue neurochecks Continue aspirin, Lipitor. Neurology added Plavix, continue aspirin and Plavix for 21 days followed by Plavix indefinitely 2D echo done showed LVEF of 55%, RVSP of 37, mild to moderate dilated left atrium, mild tricuspid regurg Continue Synthroid Continue atenolol Physical therapy consulted Occupational Therapy consulted Speech therapy consulted Allow permissive hypertension for the first 24 to 48 hours. As needed antihypertensive for blood pressure more than 190/110 Neurology following Labs and medication were reviewed.. Continue same treatment. Continue with symptomatic treatment. Resume home medication. Monitor labs and vitals. DVT and GI prophylaxis. Further recommendations as per clinical course of the patient Dictation was produced using [employer] dictation software. please excuse any grammatical, word or spelling errors. Objective - Vital Signs Vital signs: Vital Signs Temp 97.7 F 08/07/23 04:59 Pulse 84 08/07/23 04:59 Resp 16 08/07/23 04:59 BP 189/80 08/07/23 04:59 Pulse Ox 98 08/07/23 04:59 FiO2 Intake & Output 08/06/23 08/07/23 08/07/23 18:59 06:59 18:59 Intake Total 360 500 Output Total 1050 Balance 360 -550 Weight 90.718 kg Intake: Intake, IV Titration 260 Amount Sodium Chloride 0.9% 1, 260 000 ml @ 130 mls/hr IV . [id number] [facility] Rx#:[id number] Oral 360 240 Output: Urine 1050 Other: Voiding Method External Catheter External Catheter - Labs CBC & Chem 7: 08/06/23 10:46 08/06/23 10:46 Labs: Abnormal Lab Results - Last 24 Hours (Table) 08/06/23 Range/Units 10:46 Chloride 110 H (98-107) mmol/L Glucose 152 H (74-99) mg/dL Alkaline Phosphatase 128 H (38-126) U/L Albumin 3.4 L (3.5-5.0) g/dL
[2023-08-07] MEDS: MORPHINE SULFATE 4 MG/ML SYRINGE IV PRN (14:30)
--- NOTE | 2023-08-07 15:07 | P.PN ---
Subjective Progress Note Date: 08/07/23 I am seeing the patient for the first time during this admission. Please refer to Dr. Tenorio's note for further details. It seems the patient has a acute ischemic stroke with right facial droop and right-sided weakness. Pending MRI the brain. Objective - Vital Signs Vital signs: Vital Signs Temp 97.8 F 08/07/23 08:00 Pulse 79 08/07/23 08:00 Resp 16 08/07/23 08:00 BP 185/78 08/07/23 08:00 Pulse Ox 96 08/07/23 08:00 FiO2 Intake & Output 08/06/23 08/07/23 08/07/23 18:59 06:59 18:59 Intake Total 360 500 360 Output Total 1050 Balance 360 -550 360 Weight 90.718 kg Intake: Intake, IV Titration 260 Amount Sodium Chloride 0.9% 1, 260 000 ml @ 130 mls/hr IV . Q7H42M [facility] Rx#:[id number] Oral 360 240 360 Output: Urine 1050 Other: Voiding Method External Catheter External Catheter External Catheter - Exam General: Sitting in a recliner chair and is having her lunch and is not in acute distress. Neuro: The patient is awake alert oriented to self place and time. The patient is following simple commands. No aphasia and no neglect The pupils are round equal and reactive to light. Visual randolph are full to consultation. Extraocular movements intact no nystagmus. Patient has right lower facial weakness. Positive dysarthria. 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 The right upper extremity is weaker than the right lower extremity. Left side is a 5 out of 5. Sensation is normal to touch throughout. - Labs CBC & Chem 7: 08/06/23 10:46 08/06/23 10:46 Assessment and Plan Assessment: * Acute ischemic stroke, with right facial droop, right hemiparesis and dysarthria. Possible lacunar stroke from small vessel disease. Patient's current NIH stroke scale is 5. Patient was not a candidate for TNK. No large vessel occlusion noted. * Hypertension * Hyperlipidemia * Cellulitis Plan: * MRI of the brain without contrast, evaluate for acute CVA * 2-D echo revealed left ventricle or EF 50-55%. Mild to moderately dilated left atrium. Trace MR. Trace TR. * CTA head and neck showed: No evidence of dissection of the cervical internal carotid arteries or vertebral arteries or any evidence of significant stenosis of the carotid bifurcations. No evidence of intracranial high-grade stenosis or intracranial aneurysm. * Fasting a.m. lipid panel: Triglyceride is 96, cholesterol is 186, LDLs 111, HDL 54. * Hemoglobin A1c is 5.9. * Permissive hypertension for next 24 hours * Patient was taking aspirin 81 mg daily and was started on plavix 75mg daily during this admission. To be on dural antiplatelets and after 21 days, may stop aspirin and continue Plavix. Is currently on Lipitor 80mg qhs. * Neuro checks. * Telemetry monitoring rule out any arrhythmia * PT, OT, speech therapy. I consulted inpatient rehab. * DVT prophylaxis: Heparin 5000 units subcu every 8 hours The plan discussed with the patient's and the per family members who are at bedside. Also discussed with the primary attending Time with Patient: Less than 30
--- NOTE | 2023-08-07 16:03 | MR ---
EXAMINATION TYPE: MR brain wo con DATE OF EXAM: 08/07/2023 3:50 PM CLINICAL INDICATION:Female, 77 years old with history of Right-sided weakness; PHH, Right-sided weakn ess COMPARISON: 08/05/2023.. TECHNIQUE: Multi planar, multi sequence imaging was performed through the brain including: T1, T2, In version recovery, Diffusion weighted imaging, and gradient echo imaging. No gadolinium was given. FINDINGS: Restricted diffusion within the left basal ganglia. Bilateral cord plexus and the granuloma suggested. Mild cerebral atrophy with proportional dilation of ventricular system. Scattered foci of high T2 s ignal intensity are seen within the periventricular white matter. Midline structures show no abnormal ity. The susceptibility weighted images do not reveal any evidence for micro-hemorrhage. The bone marrow signal is within normal limits. Paranasal sinuses and mastoid air cells: No significant paranasal sinus disease. Visualized orbits: Orbital contents are intact. IMPRESSION: 1. Acute/subacute CVA involving the left basal ganglia. 2. Nonspecific white matter changes, likely secondary to small vessel ischemic disease.
[2023-08-08] MEDS: amLODIPine 2.5 MG TAB PO SCH (09:09)
--- NOTE | 2023-08-08 13:10 | P.PN ---
Subjective Progress Note Date: 08/08/23 I am following-up with patient and she feels about the same. Denies any new neurological issues. Objective - Vital Signs Vital signs: Vital Signs Temp 98.6 F 08/08/23 11:38 Pulse 63 08/08/23 11:38 Resp 16 08/08/23 11:38 BP 186/84 08/08/23 11:38 Pulse Ox 95 08/08/23 11:38 FiO2 Intake & Output 08/07/23 08/08/23 08/08/23 18:59 06:59 18:59 Intake Total 1380 240 540 Output Total 500 300 Balance 1380 -260 240 Intake: Oral 1380 240 540 Output: Urine 500 300 Other: Voiding Method External Catheter External Catheter External Catheter - Exam General: Sitting in a recliner chair and is having her lunch and is not in acute distress. Neuro: The patient is awake alert oriented to self place and time. The patient is following simple commands. No aphasia and no neglect The pupils are round equal and reactive to light. Visual randolph are full to consultation. Extraocular movements intact no nystagmus. Patient has right lower facial weakness. Positive dysarthria. 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 The right upper extremity is weaker than the right lower extremity. Left side is a 5 out of 5. Sensation is normal to touch throughout. - Labs CBC & Chem 7: 08/06/23 10:46 08/06/23 10:46 Assessment and Plan Assessment: * Acute ischemic stroke, with right facial droop, right hemiparesis and dysarthria. Left basal ganglia causing chronic small vessel disease from her risk factors (HTN, hyperlipidemia, age and sex). Possible lacunar stroke from small vessel disease. Patient's NIH stroke scale is 5. Patient was not a candidate for TNK. No large vessel occlusion noted. * Hypertension * Hyperlipidemia * Cellulitis Plan: * MRI of the brain without contrast: It is reported as acute/subacute CVA involving the left basal ganglia. Nonspecific white matter changes, likely secondary due to the small vessel ischemic disease. I personally reviewed the MRI and I do agree over the left basal ganglia over the posterior horn of int ernal capsule. * 2-D echo revealed left ventricle or EF 50-55%. Mild to moderately dilated left atrium. Trace MR. Trace TR. * CTA head and neck showed: No evidence of dissection of the cervical internal carotid arteries or vertebral arteries or any evidence of significant stenosis of the carotid bifurcations. No evidence of intracranial high-grade stenosis or intracranial aneurysm. * Fasting a.m. lipid panel: Triglyceride is 96, cholesterol is 186, LDLs 111, HDL 54. * Hemoglobin A1c is 5.9. * Permissive hypertension for next 24 hours * Patient was taking aspirin 81 mg daily and was started on plavix 75mg daily during this admission. To be on dural antiplatelets and after 21 days, may stop aspirin and continue Plavix. Is currently on Lipitor 80mg qhs and decreased to 40mqhs since no high graded stenosis. * Neuro checks. * Telemetry monitoring rule out any arrhythmia * PT, OT, speech therapy. I consulted inpatient rehab which I feel patient will benefit. * DVT prophylaxis: Heparin 5000 units subcu every 8 hours * Upon discharge, recommend patient to follow-up with neurologist as outpatient within 2 weeks. The plan discussed with the patient's and the per family members who are at bedside. There is no further neurological work-up. Please notify neurology team if any further concerns. Time with Patient: Less than 30
--- NOTE | 2023-08-08 13:38 | P.PN ---
Subjective Progress Note Date: 08/08/23 patient is a 77-year-old lady with past medical history significant for hypertension, hyperlipidemia, GERD came to the ER because of right-sided weakness and facial droop. Patient was last seen well at 10 AM in the morning, patient stated that she was all right before that when she started noticing that her right side was weak. Patient had weakness of right upper and lower extremity. There was also right facial droop associate with some slurred speech. There was no complaint of any loss of consciousness. Denied any palpitation. There is no complaint of orthopnea or PND. There was no complaint chest pain or shortness of breath. Because of this right-sided weakness, patient was brought to the ER Initial lab work done in the ER showed WBC 6.2, hemoglobin 14.4, platelet count 233, sodium 139, potassium 4.7, BUN 18, creatinine 0.71, bilirubin 0.8, AST 38, alk phos 151 UA negative for any infection Urine drug screen also negative EKG done in the ER showed heart rate of 81 , no ST segment elevation or depression seen, no T-wave inversions seen. Chest x-ray done in the ER no acute cardiopulmonary process CT head done showed no acute intracranial process, nonspecific white matter changes, likely secondary to chronic small vessel ischemic disease CTA head and neck done showed no significant stenosis, aneurysm or thrombus in the intracranial circulation In the ER, patient blood pressure was 190/100, NIH was 8, patient was outside the window for TNK, case was discussed with on-call interventional neurologist and he agreed with it Patient admitted to internal medicine service 08/06. Patient seen and examined. 2D echo done showed LVEF of 55%, RVSP of 37, mild to moderate dilated left atrium, mild tricuspid regurg. Still has weakness of right side, slurred speech has improved 08/07. Patient seen and examined MRI brain done showed acute/subacute CVA involving the left basal ganglia. States she feels much better. Denies any nausea or vomiting. States weakness of right side has slightly improved REVIEW OF SYSTEMS: CONSTITUTIONAL: No fever, no malaise,. CARDIOVASCULAR: No chest pain, no palpitations, no syncope. PULMONARY: No shortness of breath, no cough, GASTROINTESTINAL: No diarrhea, no nausea, no vomiting, no abdominal pain. NEUROLOGICAL: As mentioned above PHYSICAL EXAMINATION: GENERAL: The patient is alert and oriented x3, not in any acute distress. Well developed, well nourished. HEENT: Pupils are round and equally reacting to light. EOMI. No scleral icterus. No conjunctival pallor. Normocephalic, atraumatic. No pharyngeal erythema. No thyromegaly. CARDIOVASCULAR: S1 and S2 present. No murmurs, rubs, or gallops. PULMONARY: Chest is clear to auscultation, no wheezing or crackles. ABDOMEN: Soft, nontender, nondistended, normoactive bowel sounds. No palpable organomegaly. MUSCULOSKELETAL: No joint swelling or deformity. EXTREMITIES: No cyanosis, clubbing, or pedal edema. NEUROLOGICAL: Muscle strength is 1 x 5 in right upper extremity and 4 x 5 in right lower and 5/5 in left side. Right facial droop seen SKIN: No rashes. Assessment and plan Acute CVA Hypertension Hyperlipidemia Hypothyroidism GERD Monitor vital signs Monitor CBC Monitor CMP Continue telemetry monitoring Continue neurochecks Continue aspirin, Neurology added Plavix, continue aspirin and Plavix for 21 days followed by Plavix indefinitely 2D echo done showed LVEF of 55%, RVSP of 37, mild to moderate dilated left atrium, mild tricuspid regurg MRI brain done showed acute/subacute CVA involving the left basal ganglia. Continue Lipitor 40 mg daily Continue Synthroid Continue atenolol Norvasc Physical therapy following Occupational Therapy following Speech therapy following Neurology following Labs and medication were reviewed.. Continue same treatment. Continue with symptomatic treatment. Resume home medication. Monitor labs and vitals. DVT and GI prophylaxis. Further recommendations as per clinical course of the patient Dictation was produced using [employer] dictation software. please excuse any grammatical, word or spelling errors. Objective - Vital Signs Vital signs: Vital Signs Temp 98.7 F 08/08/23 08:00 Pulse 64 08/08/23 08:00 Resp 14 08/08/23 08:00 BP 143/67 08/08/23 08:00 Pulse Ox 95 08/08/23 08:00 FiO2 Intake & Output 08/07/23 08/08/23 08/08/23 18:59 06:59 18:59 Intake Total 1380 240 Output Total 500 Balance 1380 -260 Intake: Oral 1380 240 Output: Urine 500 Other: Voiding Method External Catheter External Catheter - Labs CBC & Chem 7: 08/06/23 10:46 08/06/23 10:46
--- NOTE | 2023-08-08 13:53 | P.CONS ---
History of Present Illness - Reason for Consult Consult date: 08/08/23 rehab recommendations - Chief Complaint CVA - History of Present Illness Ms Leyla Quijano is a 77 y/o right handed female who lives with her in a 2 story home with 6-7 MARK ANTHONY. Patient residing on the [facility]. She was independent with mobility and ADLs using a single point cane. She reports her is supportive as well as her daughter. Ms Quijano presented to [facility] on 08/05/23 with complaints of right sided weakness, slurred speech and right facial droop. Unfortunately she was out of the tPA window. BP was noted to be elevated when EMS arrived and in ED, BP 193/100. Stroke protocol was activated, neurology consulted. She had an echo, EF 50-55%. CT head with no acute process, CTA head and neck with no significant stenosis. MRI brain was ordered which revealed left basal ganglia acute/subacute CVA. She was placed on asa and plavix. PM&R consulted for rehab recommendations. Patient was seen by therapies; needing max assist with bathing and dressing, max to total assist with bed mobility and transfers. She was cleared for a regular diet and thin liquids. 08/08/23: Patient states she is doing ok, reports she has been able to feed herself with her left hand. She denies HAs, dizziness, CP, SOB, and abdominal pain. She had a BM on 08/05/23, denies issues with urination. She reports right sided weakness, worse in her arm than her leg. 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 She has no complaints of pain, denies numbness and tingling sensations. We discussed rehab options, she would like to see if she could get approved for [facility]. Per case management does have referral and approval for [facility]. Patient would like this as a back up plan. Review of Systems negative unless stated above in HPI. Past Medical History Past Medical History: CVA/TIA, GERD/Reflux, Hyperlipidemia, Hypertension, Osteoarthritis (OA) Additional Past Medical History / Comment(s): Leg wounds and weeping, new right side weakness and facial droop History of Any Multi-Drug Resistant Organisms: None Reported Additional Past Surgical History / Comment(s): left breast lumpectomy, right ankle surgery Past Anesthesia/Blood Transfusion Reactions: No Reported Reaction Past Psychological History: No Psychological Hx Reported Smoking Status: Never smoker Past Alcohol Use History: Daily Past Drug Use History: None Reported - Past Family History Father Family Medical History: AICD/Pacemaker, Congestive Heart Failure (CHF) Additional Family Medical History / Comment(s): cellulitis Mother Family Medical History: AICD/Pacemaker, Dementia Medications and Allergies Home Medications Medication Instructions Recorded Confirmed Type Aspirin EC [Ecotrin Low Dose] 81 mg PO DAILY 03/02/23 08/05/23 History Lansoprazole 30 mg PO DAILY 03/02/23 08/05/23 History Levothyroxine Sodium [Synthroid] 100 mcg PO DAILY 03/02/23 08/05/23 History Multivit-Min/Iron/Folic/Lutein 1 tab PO DAILY 03/02/23 08/05/23 History [Centrum Silver Women Tablet] Naproxen Sodium [Aleve] 220 mg PO DAILY 03/02/23 08/05/23 History atenoloL [Tenormin] 50 mg PO DAILY 03/02/23 08/05/23 History Allergies Allergy/AdvReac Type Severity Reaction Status Date / Time No Known Allergies Allergy Verified 08/05/23 22:00 Physical Exam Vitals: Vital Signs Temp Pulse Pulse Resp BP Pulse Ox 08/08/23 11:38 98.6 F 63 16 186/84 95 08/08/23 08:00 98.7 F 63 16 143/67 95 08/08/23 03:20 98.4 F 80 19 150/75 95 08/08/23 02:00 70 70 16 08/07/23 23:33 70 16 159/85 94 L 08/07/23 20:00 98.3 F 70 62 18 171/86 96 08/07/23 16:00 68 146/65 97 08/07/23 14:00 70 16 Intake and Output 08/07/23 08/08/23 08/08/23 22:59 06:59 14:59 Intake Total 900 540 Output Total 500 300 Balance 400 240 Intake: Oral 900 540 Output: Urine 500 300 Other: Voiding Method External Catheter External Catheter External Catheter EXAM; General: WDWN, elderly female, laying in bed with HOB elevated, NAD Head: Normocephalic, atraumatic. Eyes: Symmetric, glasses on Ears: Symmetric. Hearing within normal limits. Mouth: Clear, geographic tongue Neck: Supple. Cardiac: personnel monitor on. Calves supple, non tender, +LE edema -chronic per patient with history of wounds Lungs: Breathing comfortably on RA. Chest symmetric. Abdomen: Soft, nontender. Extremities: Arthritic changes consistent with age. Neurological: Alert and oriented x 3. Unable to perform FTN and HTS on right side Speech is clear and fluent without paraphasic errors Cranial nerves: CN II-XII grossly intact. Sensation: Intact and symmetrical limbs. Musculoskeletal: ROM WFL EXCEPT: right hemiparesis, upper greater than lower MMT UE Sh Abd EE EF FABD WE HG Right 1-2 0 0 4 Left 5 5 5 5 MMT LE HF KE DF EHL Right 4- 4- 4+ 5 Left 4+ 5 5 5 Reflexes Biceps Triceps Brachioradialis Patella Achilles Babinski Hoffmans Right 2 2 2 2 2 Left 2 2 2 2 2 Skin: Skin intact where visible to head, neck, and bilateral upper and lower extremities EXCEPT: LE wrapped Psych: Calm, cooperative Results CBC & Chem 7: 08/06/23 10:46 08/06/23 10:46 Assessment and Plan Assessment: # Right hemiparesis secondary to acute left basal ganglia acute/subacute CVA -PT/OT/ROLL CAPPER -fall precautions # Impaired gait and ADLs secondary to above # Right facial droop # Slight dysarthria # HTN # Chronic LE swelling and wounds - has been seen by outpatient wound clinic # DVT Proph -ASA, plavix # Pain Management -no complaints prn Morphine #Diet -regular and thin liquids # Comorbidities: HTN, HLD, GERD, ETOH use # Your medical dx and management Dispo: Patient would like to see if she can get approval for IPR. She is an appropriate candidate, motivated, and was independent prior. We will submit for insurance authorization. Patient seen and examined by Christi Nguyễn PA-C in collaboration with Dr Rasmussen
[2023-08-08] MEDS: ATORVASTATIN 40 MG TAB PO SCH (20:08)
[2023-08-09] MEDS: PSYLLIUM HUSK 100% 6 GM PACKET PO SCH (14:03)
[2023-08-09] MEDS: LACTULOSE 20 GM/30 ML CUP PO ONE (14:03)
--- NOTE | 2023-08-09 16:30 | P.PN ---
Progress Note - Text Progress Note Date: 08/09/23 patient is a 77-year-old lady with past medical history significant for hypertension, hyperlipidemia, GERD came to the ER because of right-sided weakness and facial droop. Patient was last seen well at 10 AM in the morning, patient stated that she was all right before that when she started noticing that her right side was weak. Patient had weakness of right upper and lower extremity. There was also right facial droop associate with some slurred speech. There was no complaint of any loss of consciousness. Denied any palpitation. There is no complaint of orthopnea or PND. There was no complaint chest pain or shortness of breath. Because of this right-sided weakness, patient was brought to the ER Initial lab work done in the ER showed WBC 6.2, hemoglobin 14.4, platelet count 233, sodium 139, potassium 4.7, BUN 18, creatinine 0.71, bilirubin 0.8, AST 38, alk phos 151 UA negative for any infection Urine drug screen also negative EKG done in the ER showed heart rate of 81 , no ST segment elevation or depression seen, no T-wave inversions seen. Chest x-ray done in the ER no acute cardiopulmonary process CT head done showed no acute intracranial process, nonspecific white matter changes, likely secondary to chronic small vessel ischemic disease CTA head and neck done showed no significant stenosis, aneurysm or thrombus in the intracranial circulation In the ER, patient blood pressure was 190/100, NIH was 8, patient was outside the window for TNK, case was discussed with on-call interventional neurologist and he agreed with it Patient admitted to internal medicine service 08/06. Patient seen and examined. 2D echo done showed LVEF of 55%, RVSP of 37, mild to moderate dilated left atrium, mild tricuspid regurg. Still has weakness of right side, slurred speech has improved 08/07. Patient seen and examined MRI brain done showed acute/subacute CVA involving the left basal ganglia. States she feels much better. Denies any nausea or vomiting. States weakness of right side has slightly improved August 08: Patient reclining in bed. Just finished lunch. at the bedside. Weakness on the right side still present. Speech is a bit slow. Multiple to the left. Patient not had a bowel movement for last 4 days. Metamucil and lactulose ordered. Plan to get discharged hopefully to rehab tomorrow after bowel movement. Questions answered. Active Medications Amlodipine Besylate (Amlodipine 2.5 Mg Tab) 2.5 mg PO DAILY [facility] Last Admin: 08/09/23 07:49 Dose: 2.5 mg Aspirin (Aspirin 81 Mg) 81 mg PO DAILY [facility] Last Admin: 08/09/23 07:48 Dose: 81 mg Atenolol (Atenolol 50 Mg Tab) 50 mg PO DAILY [facility] Last Admin: 08/09/23 07:49 Dose: 50 mg Atorvastatin Calcium (Atorvastatin 40 Mg Tab) 40 mg PO HS [facility] Last Admin: 08/08/23 20:08 Dose: Not Given Clopidogrel Bisulfate (Clopidogrel 75 Mg Tab) 75 mg PO DAILY [facility] Last Admin: 08/09/23 07:49 Dose: 75 mg Heparin Sodium (Porcine) (Heparin Sodium,Porcine 5,000 Unit/Ml 1 Ml Vial) 5,000 unit SQ Q8HR [facility] Last Admin: 08/09/23 15:00 Dose: 5,000 unit Hydralazine HCl (Hydralazine Hcl 20 Mg/Ml 1 Ml Vial) 10 mg IVP Q6HR PRN PRN Reason: Blood Pressure - High Last Admin: 08/06/23 23:52 Dose: 10 mg Sodium Chloride (Saline 0.9%) 1,000 mls @ 130 mls/hr IV .[id number] [facility] Last Admin: 08/09/23 11:49 Dose: Not Given Levothyroxine Sodium (Levothyroxine 100 Mcg Tab) 100 mcg PO DAILY@0630 [facility] Last Admin: 08/09/23 05:56 Dose: 100 mcg Morphine Sulfate (Morphine Sulfate 4 Mg/Ml Syringe) 4 mg IV Q4HR PRN PRN Reason: Severe Pain (Scale 7 to 10) Last Admin: 08/07/23 14:30 Dose: 4 mg Multivitamins (Multivitamins, Thera 1 Each Tab) 1 each PO DAILY [facility] Last Admin: 08/09/23 07:48 Dose: 1 each Naloxone HCl (Naloxone 0.4 Mg/Ml 1 Ml Vial) 0.2 mg IV Q2M PRN PRN Reason: Opioid Reversal Ondansetron HCl (Ondansetron 4 Mg/2 Ml Vial) 4 mg IVP Q8HR PRN PRN Reason: Nausea And Vomiting Pantoprazole Sodium (Pantoprazole 40 Mg Tablet) 40 mg PO DAILY@0730 [facility] Last Admin: 08/09/23 05:56 Dose: 40 mg Psyllium Hydrophilic Mucilloid (Psyllium Husk 100% 6 Gm Packet) 6 gm PO DAILY [facility] Last Admin: 08/09/23 14:03 Dose: 6 gm On examination: VITAL SIGNS: [98.7, 65, 16, 152/86, 95% room air] GENERAL APPEARANCE: BMI 36.6, sitting bed awake comfortable. HEENT: Normal external appearance of nose and ear. Oral cavity normal EYES: Pupils equal. Conjunctiva normal. NECK: JVD not raised. Mass not palpable. RESPIRATORY: Respiratory effort normal. Lungs clear to auscultation. CARDIOVASCULAR: First and second sounds normal. No edema. ABDOMEN: Soft. Liver and spleen not palpable. No tenderness. No mass palpable. PSYCHIATRY: Alert and oriented x3. Mood and affect normal. NEUROLOGICAL: Mouth pulled to the left.'s slight dysarthria. Power in the right arm 3/5. Power in the right leg 4/5. INVESTIGATIONS, reviewed in the clinical context: August 05: White count 6.1 hemoglobin 13.2 platelets 222 potassium 4 creatinine 0.67 LDL 111 Urine drug screen negative Brain MRI: Acute/subacute CVA involving the left basal ganglia. Nonspecific white matter changes. 2D echocardiogram: EF 50 to 55[address] angio head and neck: Unremarkable EKG: Normal sinus rhythm. 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 Causing right-sided paresis, dysarthria, gait dysfunction Aspirin. Plavix for 3 weeks. Lipitor Neurology following -Hyperlipidemia Lipitor 40 mg nightly -Essential hypertension, could be better controlled Add chlorthalidone 25 mg a day. Increase amlodipine to 5 mg nightly Tenormin 50 mg a day -Hypothyroidism Synthroid 100 mcg a day -GERD Protonix -Obesity BMI 36.6 Weight loss measures -Acute dysarthria from stroke Speech therapy -Acute gait dysfunction from stroke PT OT -Acute constipation from decreased activity Metamucil 6 g daily. Lactulose 20 g 1 dose now. -Full code -Disposition: Rehab at [facility] was discussed at length with the patient and at the bedside. Plan for discharge to [facility] tomorrow. Patient will need inpatient rehab.
[2023-08-09] MEDS: CHLORTHALIDONE 25 MG TAB PO SCH (17:00)
[2023-08-09] MEDS: amLODIPine 5 MG TAB PO SCH (20:55)
[2023-08-10 08:42] VITALS: TEMP 97.8
[2023-08-10 11:48] VITALS: BP 132/80; PULSE 60; RESP 16
--- NOTE | 2023-08-10 12:46 | P.DS ---
Providers Date of admission: 08/05/23 22:52 Expected date of discharge: 08/10/23 Attending physician: David Rodríguez Consults: 08/05/23 22:52 Consult Physician Routine Consulting Provider: Higinio Tenorio Consult Reason/Comments: cva Do you want consulting provider notified?: Yes 08/07/23 15:06 Consult Physician Routine Consulting Provider: Clif Beckham Consult Reason/Comments: stroke. inpatient rehab Do you want consulting provider notified?: Yes Primary care physician: [facility] Course: patient is a 77-year-old lady with past medical history significant for hypertension, hyperlipidemia, GERD came to the ER because of right-sided weakness and facial droop. Patient was last seen well at 10 AM in the morning, patient stated that she was all right before that when she started noticing that her right side was weak. Patient had weakness of right upper and lower extremity. There was also right facial droop associate with some slurred speech. There was no complaint of any loss of consciousness. Denied any palpitation. There is no complaint of orthopnea or PND. There was no complaint chest pain or shortness of breath. Because of this right-sided weakness, patient was brought to the ER Initial lab work done in the ER showed WBC 6.2, hemoglobin 14.4, platelet count 233, sodium 139, potassium 4.7, BUN 18, creatinine 0.71, bilirubin 0.8, AST 38, alk phos 151 UA negative for any infection Urine drug screen also negative EKG done in the ER showed heart rate of 81 , no ST segment elevation or depression seen, no T-wave inversions seen. Chest x-ray done in the ER no acute cardiopulmonary process CT head done showed no acute intracranial process, nonspecific white matter changes, likely secondary to chronic small vessel ischemic disease CTA head and neck done showed no significant stenosis, aneurysm or thrombus in the intracranial circulation In the ER, patient blood pressure was 190/100, NIH was 8, patient was outside the window for TNK, case was discussed with on-call interventional neurologist and he agreed with it Patient admitted to internal medicine service 08/06. Patient seen and examined. 2D echo done showed LVEF of 55%, RVSP of 37, mild to moderate dilated left atrium, mild tricuspid regurg. Still has weakness of right side, slurred speech has improved 08/07. Patient seen and examined MRI brain done showed acute/subacute CVA involving the left basal ganglia. States she feels much better. Denies any nausea or vomiting. States weakness of right side has slightly improved August 08: Patient reclining in bed. Just finished lunch. at the bedside. Weakness on the right side still present. Speech is a bit slow. Multiple to the left. Patient not had a bowel movement for last 4 days. Metamucil and lactulose ordered. Plan to get discharged hopefully to rehab tomorrow after bowel movement. Questions answered. August 09: Patient had a very good bowel movement yesterday evening. Very content. Patient's power in the right arm is now 3 x 5. Able to lift it well of the bed. Speech is better. Right leg is 4/5. Patient still requiring moderate assist with shuffling steps to pivot to the chair with moderate assist. Will be going to rehab inpatient today. Discussion and discharge planning more than 35 minutes On examination: VITAL SIGNS:] 97.8, 68, 18, 132/80, 97% room air GENERAL APPEARANCE: BMI 36.6, sitting bed awake comfortable. HEENT: Normal external appearance of nose and ear. Oral cavity normal EYES: Pupils equal. Conjunctiva normal. NECK: JVD not raised. Mass not palpable. RESPIRATORY: Respiratory effort normal. Lungs clear to auscultation. CARDIOVASCULAR: First and second sounds normal. No edema. ABDOMEN: Soft. Liver and spleen not palpable. No tenderness. No mass palpable. PSYCHIATRY: Alert and oriented x3. Mood and affect normal. NEUROLOGICAL: Mouth pulled to the left.'s slight dysarthria. Power in the right arm 3/5. Power in the right leg 4/5. INVESTIGATIONS, reviewed in the clinical context: August 05: White count 6.1 hemoglobin 13.2 platelets 222 potassium 4 creatinine 0.67 LDL 111 Urine drug screen negative Brain MRI: Acute/subacute CVA involving the left basal ganglia. Nonspecific white matter changes. 2D echocardiogram: EF 50 to 55%. CT angio head and neck: Unremarkable EKG: Normal sinus rhythm. 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 Causing right-sided paresis, dysarthria, gait dysfunction Aspirin. Plavix for 3 weeks. Lipitor Neurology following Follow-up with Dr. Tha Rock outpatient -Hyperlipidemia Lipitor 40 mg nightly -Essential hypertension, better controlled Chlorthalidone 25 mg a day. Amlodipine to 5 mg nightly Tenormin 50 mg a day -Hypothyroidism Synthroid 100 mcg a day -GERD Protonix -Obesity BMI 36.6 Weight loss measures -Acute dysarthria from stroke Speech therapy -Acute gait dysfunction from stroke PT OT. For inpatient rehab -Constipation from decreased activity Had a good bowel movement yesterday evening. Continue with Metamucil -Full code -Disposition: Rehab at [facility] Plan - Discharge Summary Discharge Rx Participant: No New Discharge Prescriptions: New Chlorthalidone [Hygroton] 25 mg PO DAILY tab Atorvastatin [Lipitor] 40 mg PO HS tab amLODIPine [Norvasc] 5 mg PO HS tab Clopidogrel [Plavix] 75 mg PO DAILY #20 tab Psyllium Husk 100% [Metamucil Packet] 6 gm PO DAILY packet Diclofenac Sodium Gel [Voltaren 1% Gel] 4 gm TOPICAL BID #100 gm Continue Lansoprazole 30 mg PO DAILY Aspirin EC [Ecotrin Low Dose] 81 mg PO DAILY atenoloL [Tenormin] 50 mg PO DAILY Levothyroxine Sodium [Synthroid] 100 mcg PO DAILY Multivit-Min/Iron/Folic/Lutein [Centrum Silver Women Tablet] 1 tab PO DAILY Changed Naproxen Sodium [Aleve] 220 mg PO DAILY PRN #0 PRN Reason: Pain Discharge Medication List Aspirin EC [Ecotrin Low Dose] 81 mg PO DAILY 03/02/23 [History] Lansoprazole 30 mg PO DAILY 03/02/23 [History] Levothyroxine Sodium [Synthroid] 100 mcg PO DAILY 03/02/23 [History] Multivit-Min/Iron/Folic/Lutein [Centrum Silver Women Tablet] 1 tab PO DAILY 03/02/23 [History] atenoloL [Tenormin] 50 mg PO DAILY 03/02/23 [History] Atorvastatin [Lipitor] 40 mg PO HS tab 08/10/23 [Rx] Chlorthalidone [Hygroton] 25 mg PO DAILY tab 08/10/23 [Rx] Clopidogrel [Plavix] 75 mg PO DAILY #20 tab 08/10/23 [Rx] Diclofenac Sodium Gel [Voltaren 1% Gel] 4 gm TOPICAL BID #100 gm 08/10/23 [Rx] Naproxen Sodium [Aleve] 220 mg PO DAILY PRN #0 08/10/23 [Rx] Psyllium Husk 100% [Metamucil Packet] 6 gm PO DAILY packet 08/10/23 [Rx] amLODIPine [Norvasc] 5 mg PO HS tab 08/10/23 [Rx] Follow up Appointment(s)/Referral(s): Toney Irving MD [Primary Care Provider] - 1-2 days Sofia Monzon MD [REFERRING] - 3 Weeks Patient Instructions/Handouts: Ischemic Stroke (GEN)
[2023-08-10 14:52] VITALS: BMI 36.6
== END 2023-08-10 13:55 | DRG 65 ==
LOC: EC 20:45 → 3SCARD 22:52
PROVIDERS: ADMIT Hospitalist; ATTEND Hospitalist
DX: I63.89 Other cerebral infarction (principal); G81.91 Hemiplegia, unspecified affecting right dominant side; L03.90 Cellulitis, unspecified; I10 Essential (primary) hypertension; K21.9 Gastro-esophageal reflux disease without esophagitis; R29.810 Facial weakness; E03.9 Hypothyroidism, unspecified; E66.9 Obesity, unspecified; Z68.36 Body mass index [BMI] 36.0-36.9, adult; R47.1 Dysarthria and anarthria; K59.00 Constipation, unspecified; R26.2 Difficulty in walking, not elsewhere classified; R47.81 Slurred speech; E78.5 Hyperlipidemia, unspecified; I08.1 Rheumatic disorders of both mitral and tricuspid valves; R29.705 NIHSS score 5; R29.708 NIHSS score 8; Z79.02 Long term (current) use of antithrombotics/antiplatelets; Z79.82 Long term (current) use of aspirin; Z79.890 Hormone replacement therapy; Z79.899 Other long term (current) drug therapy; Z82.49 Family history of ischemic heart disease and other diseases of the circulatory system
CPT/HCPCS: 36415; 70450; 70496; 70498; 70551; 71046; 80053; 80061; 80306; 81003; 82550; 83036; 83735; 84100; 84484; 85025; 85610; 85730; 93005; 93306; 96360; 96361; 99291

== ENCOUNTER 2024-11-18 11:49 | Observation (INO) | payer MEDICARE, OTHER ==
[2024-11-18 14:07] LABS: Basophils # (A) 0.06 10*3/uL (0.00-0.10); Basophils % (A) 0.8 %; Eosinophils # (A) 0.48 10*3/uL (0.04-0.35); Eosinophils % (A) 6.0 %; HCT 40.5 % (37.2-46.3); HGB 13.2 g/dL (12.0-15.0); Lymphocytes # (A) 1.34 10*3/uL (0.90-5.00); Lymphocytes % (A) 16.8 %; MCH 29.1 pg (27.0-32.0); MCHC 32.6 g/dL (32.0-37.0); MCV 89.4 fL (80.0-97.0); Monocytes # (A) 1.10 10*3/uL (0.20-1.00); Monocytes % (A) 13.8 %; Neutrophils # (A) 4.99 10*3/uL (1.80-7.70); Neutrophils % (A) 62.3 %; Platelet Count 265 10*3/uL (140-440); RBC 4.53 10*6/uL (4.10-5.20); RDW 15.9 % (11.5-14.5); WBC 7.99 10*3/uL (4.50-10.00)
[2024-11-18 14:31] LABS: ALT 17 U/L (4-34); AST 29 U/L (14-36); African American GFR (CKD) 70 (>60 ml/min/1.73 sqM); Albumin 3.9 g/dL (3.5-5.0); Alkaline Phosphatase 173 U/L (38-126); Anion Gap 10 mmol/L; Blood Urea Nitrogen 26 mg/dL (7-17); Calcium 9.7 mg/dL (8.4-10.2); Carbon Dioxide 28 mmol/L (22-30); Chloride 104 mmol/L (98-107); Glucose 110 mg/dL (74-99); Non-African American GFR(CKD) 61 (>60 ml/min/1.73 sqM); Potassium 4.0 mmol/L (3.5-5.1); Sodium 142 mmol/L (137-145); Total Protein 7.3 g/dL (6.3-8.2)
[2024-11-18] MEDS ORDERED: VANCOMYCIN IV PER PHARMACY 1 EACH MISC MISCELLANE PRN (15:07)
[2024-11-18] MEDS ORDERED: NALOXONE 0.4 MG/ML 1 ML VIAL IV PRN (15:28)
--- NOTE | 2024-11-18 15:28 | ED ---
General Adult HPI - General Chief complaint: Recheck/Abnormal Lab/Rx Stated complaint: Fall/Head Injury on thinners Time Seen by Provider: 11/18/24 12:00 Source: patient Mode of arrival: ambulatory Limitations: no limitations - History of Present Illness Initial comments: 79-year-old female with past medical history of CVA on Plavix who presents to the emergency department with weeping lower extremities. Patient has a history of chronic lymphedema with cellulitis. States that she is followed with the wound care center for several years. As of 6 weeks ago they referred her to vascular surgery. She has been seeing Dr. Ruby Huang. She was told that the insurance would only cover vascular or wound care evaluation but not both. When she saw vascular 6 weeks ago she got discharged from the wound care center. States that Dr. Finnegan saw her and was not sure that he could do much for the patient. He had several recommendations however patient was already initiated on multiple of these treatments. States that she has been wearing nylons to keep some compression on her legs however they have broken open and are weeping. Dr. Finnegan recommended that she be admitted to the hospital for IV antibiotics. She is not currently on any antibiotics. Denies any fevers. Reports that she did trip and fall last and hit the top of her head. She takes Plavix. She denies any headaches or visual changes. No neck or back pain. No lateralizing weakness. No confusion or slurred speech. No other alleviating, precipitating or modifying factors - Related Data Home Medications Medication Instructions Recorded Confirmed Aspirin EC [Ecotrin Low Dose] 81 mg PO DAILY 03/02/23 11/18/24 Lansoprazole 30 mg PO DAILY 03/02/23 11/18/24 Levothyroxine Sodium [Synthroid] 100 mcg PO SUTUWETHSA 03/02/23 11/18/24 Multivit-Min/Iron/Folic/Lutein 1 tab PO DAILY 03/02/23 11/18/24 [Centrum Silver Women Tablet] atenoloL [Tenormin] 50 mg PO DAILY 03/02/23 11/18/24 Naproxen Sodium [Aleve] 220 mg PO DAILY 11/18/24 11/18/24 Previous Rx's Medication Instructions Recorded Chlorthalidone [Hygroton] 25 mg PO DAILY tab 08/10/23 Clopidogrel [Plavix] 75 mg PO DAILY #20 tab 08/10/23 Cephalexin [Keflex] 500 mg PO TID #15 cap 11/20/24 Losartan [Cozaar] 50 mg PO HS #30 tab 11/20/24 Allergies Allergy/AdvReac Type Severity Reaction Status Date / Time No Known Allergies Allergy Verified 11/18/24 15:37 Review of Systems ROS Statement: Those systems with pertinent positive or pertinent negative responses have been documented in the HPI. ROS Other: All systems not noted in ROS Statement are negative. Past Medical History Past Medical History: CVA/TIA, GERD/Reflux, Hyperlipidemia, Hypertension, Osteoarthritis (OA) Additional Past Medical History / Comment(s): Leg wounds and weeping, new right side weakness and facial droop History of Any Multi-Drug Resistant Organisms: None Reported Additional Past Surgical History / Comment(s): left breast lumpectomy, right ankle surgery Past Anesthesia/Blood Transfusion Reactions: No Reported Reaction Past Psychological History: No Psychological Hx Reported Smoking Status: Never smoker Past Alcohol Use History: Daily Past Drug Use History: None Reported - Past Family History Father Family Medical History: AICD/Pacemaker, Congestive Heart Failure (CHF) Additional Family Medical History / Comment(s): cellulitis Mother Family Medical History: AICD/Pacemaker, Dementia General Exam Limitations: no limitations General appearance: alert, in no apparent distress Head exam: Present: atraumatic, normocephalic, normal inspection Eye exam: Present: normal appearance, PERRL, EOMI. Absent: scleral icterus, conjunctival injection, periorbital swelling ENT exam: Present: normal exam, mucous membranes moist Neck exam: Present: normal inspection. Absent: tenderness, meningismus, lymphadenopathy Respiratory exam: Present: normal lung sounds bilaterally. Absent: respiratory distress, wheezes, rales, rhonchi, stridor Cardiovascular Exam: Present: regular rate, normal rhythm, normal heart sounds. Absent: systolic murmur, diastolic murmur, rubs, gallop, clicks GI/Abdominal exam: Present: soft, normal bowel sounds. Absent: distended, tenderness, guarding, rebound, rigid Extremities exam: Present: normal inspection, full ROM, normal capillary refill. Absent: tenderness, pedal edema, joint swelling, calf tenderness Back exam: Present: normal inspection Neurological exam: Present: alert, oriented X3, CN II-XII intact Psychiatric exam: Present: normal affect, normal mood Skin exam: Present: warm, other (Brawny edema of the bilateral lower extremities. Open areas of ulceration that are weeping. Extremities are malodorous). Absent: rash Course Vital Signs 11/18/24 11/18/24 11/18/24 11:54 16:03 18:38 Temperature 98 F Pulse Rate 78 76 79 Respiratory 20 18 16 Rate Blood Pressure 163/71 130/81 138/65 O2 Sat by Pulse 99 97 98 Oximetry 11/18/24 21:29 Temperature 98.9 F Pulse Rate 85 Respiratory 16 Rate Blood Pressure 138/75 O2 Sat by Pulse 98 Oximetry Medical Decision Making - Medical Decision Making Was pt. sent in by a medical professional or institution (, PA, FLY FINISHER, urgent care, hospital, or skilled nursing...) When possible be specific @ -Patient was sent in by the vascular surgeon Did you speak to anyone other than the patient for history (EMS, parent, family, police, friend...)? What history was obtained from this source @ -Spoke with family for history Did you review nursing and triage notes (agree or disagree)? Why? @ -I reviewed and agree with nursing and triage notes Were old charts reviewed (outside hosp., previous admission, EMS record, old EKG, old radiological studies, urgent care reports/EKG's, skilled nursing records)? Report findings @ -No old charts were reviewed Differential Diagnosis (chest pain, altered mental status, abdominal pain women, abdominal pain men, vaginal bleeding, weakness, fever, dyspnea, syncope, headache, dizziness, GI bleed, back pain, seizure, CVA, palpatations, mental health, musculoskeletal)? @ -Cellulitis, necrotizing fasciitis, venous insufficiency EKG interpreted by me (3pts min.). @ -Not done X-rays interpreted by me (1pt min.). @ -None done CT interpreted by me (1pt min.). @ -None done U/S interpreted by me (1pt. min.). @ -None done What testing was considered but not performed or refused? (CT, X-rays, U/S, labs)? Why? @ -CT brain because of head injury however patient has no symptoms and injury happened a couple of days ago What meds were considered but not given or refused? Why? @ -None Did you discuss the management of the patient with other professionals (professionals i.e. DrLiang, PA, FLY FINISHER, lab, RT, psych nurse, forensic social worker, trash collector truck driver, teacher, assistant chief nursing officer, disease case manager rn)? Give summary @ -Spoke with Dr. Rodríguez for the admission Was smoking cessation discussed for >3mins.? @ -No Was critical care preformed (if so, how long)? @ -No Were there social determinants of health that impacted care today? How? (Homelessness, low income, unemployed, alcoholism, drug addiction, transportation, low edu. Level, literacy, decrease access to med. care, care home, rehab)? @ -No Was there de-escalation of care discussed even if they declined (Discuss DNR or withdrawal of care, Hospice)? DNR status @ -No What co-morbidities impacted this encounter? (DM, HTN, Smoking, COPD, CAD, Cancer, CVA, ARF, Chemo, Hep., AIDS, mental health diagnosis, sleep apnea, morbid obesity)? @ -Lymphedema Was patient admitted / discharged? Hospital course, mention meds given and route, prescriptions, significant lab abnormalities, going to OR and other pertinent info. @ -Upon arrival patient seen and evaluated in bed 33. Thorough history and physical exam was performed. IV access was established. Patient was given Unasyn and Vanco. Laboratory studies are conducted. Patient will be admitted for IV antibiotics and wound consult. Spoke with Dr. Rodríguez for the admission Undiagnosed new problem with uncertain prognosis? @ -No Drug Therapy requiring intensive monitoring for toxicity (Heparin, Nitro, Insulin, Cardizem)? @ -No Were any procedures done? @ -No Diagnosis/symptom? @ -Acute bilateral lower extremity cellulitis, chronic lymphedema bilateral lower extremities Acute, or Chronic, or Acute on Chronic? @ -Acute on chronic Uncomplicated (without systemic symptoms) or Complicated (systemic symptoms)? @ -Complicated Side effects of treatment? @ -No Exacerbation, Progression, or Severe Exacerbation? @ -No Poses a threat to life or bodily function? How? (Chest pain, [place], [place], pneumonia, PE, COPD, DKA, ARF, appy, cholecystitis, CVA, Diverticulitis, Homicidal, Suicidal, threat to staff... and all critical care pts) @ -No - Lab Data Result diagrams: 11/19/24 05:41 11/19/24 05:41 Lab Results 11/18/24 11/18/24 Range/Units 13:58 14:00 WBC 7.99 (4.50-10.00) 10*3/uL RBC 4.53 (4.10-5.20) 10*6/uL Hgb 13.2 (12.0-15.0) g/dL Hct 40.5 (37.2-46.3) % MCV 89.4 (80.0-97.0) fL MCH 29.1 (27.0-32.0) pg MCHC 32.6 (32.0-37.0) g/dL Plt Count 265 (140-440) 10*3/uL MPV 9.1 L (9.5-12.2) fL Immature Gran % (Auto) 0.3 % Neutrophils % 62.3 % Lymphocytes % 16.8 % Monocytes % 13.8 % Eosinophils % 6.0 % Basophils % 0.8 % Immature Gran # 0.02 (0.00-0.04) 10*3/uL Neutrophils # 4.99 (1.80-7.70) 10*3/uL Lymphocytes # 1.34 (0.90-5.00) 10*3/uL Monocytes # 1.10 H (0.20-1.00) 10*3/uL Eosinophils # 0.48 H (0.04-0.35) 10*3/uL Basophils # 0.06 (0.00-0.10) 10*3/uL ESR Cancelled Sodium 142 (137-145) mmol/L Potassium 4.0 (3.5-5.1) mmol/L Chloride 104 (98-107) mmol/L Carbon Dioxide 28 (22-30) mmol/L Anion Gap 10 mmol/L BUN 26 H (7-17) mg/dL Creatinine 0.91 (0.52-1.04) mg/dL Est GFR (CKD-EPI)AfAm 70 (>60 ml/min/1.73 sqM) Est GFR (CKD-EPI)NonAf 61 (>60 ml/min/1.73 sqM) Glucose 110 H (74-99) mg/dL Calcium 9.7 (8.4-10.2) mg/dL Total Bilirubin 0.5 (0.2-1.3) mg/dL AST 29 (14-36) U/L ALT 17 (4-34) U/L Alkaline Phosphatase 173 H (38-126) U/L C-Reactive Protein 1.2 H (<1.0) mg/dL Total Protein 7.3 (6.3-8.2) g/dL Albumin 3.9 (3.5-5.0) g/dL TSH 4.420 (0.465-4.680) mIU/L Disposition Clinical Impression: Bilateral lower leg cellulitis, Bilateral lower extremity edema Disposition: ADMITTED IP TO THIS HOSP Is patient prescribed a controlled substance at d/c from ED?: No Time of Disposition: 15:28 Decision to Admit Reason: Admit from EC Decision Date: 11/18/24 Decision Time: 15:28
[2024-11-18] MEDS: AMPICILLIN-SULBACTAM 3 GM in SODIUM CHLORIDE 0.9% 100 ML IVPB STA (15:57)
[2024-11-18] MEDS: VANCOMYCIN 1,500 MG in SODIUM CHLORIDE 0.9% 500 ML 500 ML IVPB ONE (17:28)
[2024-11-18] MEDS: ENOXAPARIN 40 MG/0.4 ML SYRINGE SQ SCH (19:00)
[2024-11-18] MEDS: CLOPIDOGREL 75 MG TAB PO SCH (19:00)
--- NOTE | 2024-11-18 22:07 | P.HPIM ---
History of Present Illness H&P Date: 11/18/24 Chief Complaint: Lower extremity weeping patient is a 79-year-old lady with past medical history significant for hypertension, hyperlipidemia, GERD. Right hemiparesis from the stroke in July 2023. PCP [address] Toney Irving She presents to the ER accompanied by her daughter. Patient said lower extremity swelling for some time and used to follow-up with Dr. Hoffman from vascular. She was told she has venous problems. 1 tabs also offered surgery had cardiac clearance. Then the patient decided to follow-up with Dr. Swan from vascular. To surgical wound center. She saw Lyric And that dressing changes with the being done. Because of increasing weeping she is present to the ER today. Denies any fever and chills. Stockings have been placed in the ER. Review of systems: GEN.: None EYES: None HEENT: None NECK: None RESPIRATORY: None CARDIOVASCULAR: None GASTROINTESTINAL: None GENITOURINARY: None MUSCULOSKELETAL: [As above LYMPHATICS: None HEMATOLOGICAL: None PSYCHIATRY: None NEUROLOGICAL: Does use a cane On examination: VITAL SIGNS:] 98.9, 85, 16, 138 x 75, 98% room GENERAL APPEARANCE: BMI 35.4, sitting up in bed HEENT: Normal external appearance of nose and ear. Oral cavity normal EYES: Pupils equal. Conjunctiva normal. NECK: JVD not raised. Mass not palpable. RESPIRATORY: Respiratory effort normal. Lungs clear to auscultation. CARDIOVASCULAR: First and second sounds normal. No edema. ABDOMEN: Soft. Liver and spleen not palpable. No tenderness. No mass palpable. PSYCHIATRY: Alert and oriented x3. Mood and affect normal. NEUROLOGICAL: Power t on the right side 4/5. Cranial nerves grossly intact Extremities: Stockings up to the knee lower extremity. INVESTIGATIONS, reviewed in the clinical context: November 18, 2024: White count 7.9 hemoglobin 13.2 platelets 265 potassium 4 creatinine 0.91 CRP 1.2 Assessment and plan: - Bilateral lower extremity venous insufficiency probably resulting in weeping. Possible secondary cellulitis IV Unasyn Will also DC amlodipine as this could be contributing to patient's lower extremity edema -Right paresis from prior stroke July 2023 Aspirin. -Hyperlipidemia Lipitor 40 mg nightly -Essential hypertension, Add Cozaar 50 mg nightly. 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 Hoffman from vascular's. I spoke to him over the phone. And spoke to the patient and the daughter. Past Medical History Past Medical History: CVA/TIA, GERD/Reflux, Hyperlipidemia, Hypertension, Osteoarthritis (OA) Additional Past Medical History / Comment(s): Leg wounds and weeping, new right side weakness and facial droop History of Any Multi-Drug Resistant Organisms: None Reported Additional Past Surgical History / Comment(s): left breast lumpectomy, right ankle surgery Past Anesthesia/Blood Transfusion Reactions: No Reported Reaction Past Psychological History: No Psychological Hx Reported Smoking Status: Never smoker Past Alcohol Use History: Daily Past Drug Use History: None Reported - Past Family History Father Family Medical History: AICD/Pacemaker, Congestive Heart Failure (CHF) Additional Family Medical History / Comment(s): cellulitis Mother Family Medical History: AICD/Pacemaker, Dementia Medications and Allergies Home Medications Medication Instructions Recorded Confirmed Type Aspirin EC [Ecotrin Low Dose] 81 mg PO DAILY 03/02/23 11/18/24 History Lansoprazole 30 mg PO DAILY 03/02/23 11/18/24 History Levothyroxine Sodium [Synthroid] 100 mcg PO SUTUWETHSA 03/02/23 11/18/24 History Multivit-Min/Iron/Folic/Lutein 1 tab PO DAILY 03/02/23 11/18/24 History [Centrum Silver Women Tablet] atenoloL [Tenormin] 50 mg PO DAILY 03/02/23 11/18/24 History Chlorthalidone [Hygroton] 25 mg PO DAILY tab 08/10/23 11/18/24 Rx Clopidogrel [Plavix] 75 mg PO DAILY #20 tab 08/10/23 11/18/24 Rx Naproxen Sodium [Aleve] 220 mg PO DAILY 11/18/24 11/18/24 History amLODIPine [Norvasc] 5 mg PO DAILY 11/18/24 11/18/24 History Allergies Allergy/AdvReac Type Severity Reaction Status Date / Time No Known Allergies Allergy Verified 11/18/24 15:37 Physical Exam Vitals: Vital Signs Temp Pulse Resp BP Pulse Ox 11/18/24 21:29 98.9 F 85 16 138/75 98 11/18/24 18:38 79 16 138/65 98 11/18/24 16:03 76 18 130/81 97 11/18/24 11:54 98 F 78 20 163/71 99 Intake and Output 11/18/24 11/18/24 11/18/24 06:59 14:59 22:59 Other: Weight 90.718 kg Results CBC & Chem 7: 11/18/24 13:58 11/18/24 14:00 Labs: Abnormal Lab Results - Last 24 Hours (Table) 11/18/24 11/18/24 Range/Units 13:58 14:00 MPV 9.1 L (9.5-12.2) fL Monocytes # 1.10 H (0.20-1.00) 10*3/uL Eosinophils # 0.48 H (0.04-0.35) 10*3/uL BUN 26 H (7-17) mg/dL Glucose 110 H (74-99) mg/dL Alkaline Phosphatase 173 H (38-126) U/L C-Reactive Protein 1.2 H (<1.0) mg/dL
[2024-11-18] MEDS: LOSARTAN 50 MG TAB PO SCH (22:46)
[2024-11-19] MEDS: LEVOTHYROXINE 100 MCG TAB PO SCH (05:59)
[2024-11-19] MEDS: PANTOPRAZOLE 40 MG TABLET PO SCH (06:52)
--- NOTE | 2024-11-19 07:09 | P.GSCN ---
History of Present Illness History of present illness: 79-year-old white female known to me from my office with history of bilateral lower extremity cellulitis. Patient also had a history of stroke in 2023 in July right hemiparesis. Patient had a workup in my office for venous ultrasound of both lower extremity.. Patient came to ER with marked swelling of the both lower extremity Medical history history of hypertension, hyperlipidemia Patient was seen in her room laying comfortably Neck is supple no bruits Chest is clear good air entry both lung. Second Abdomen soft nontender femorals are 1+ bilateral has a cellulitis with marked swelling of both lower extremity. Plan is I will review the record from the office and discussed the option with the patient Past Medical History Past Medical History: CVA/TIA, GERD/Reflux, Hyperlipidemia, Hypertension, Osteoarthritis (OA) Additional Past Medical History / Comment(s): Leg wounds and weeping, new right side weakness and facial droop History of Any Multi-Drug Resistant Organisms: None Reported Additional Past Surgical History / Comment(s): left breast lumpectomy, right ankle surgery Past Anesthesia/Blood Transfusion Reactions: No Reported Reaction Past Psychological History: No Psychological Hx Reported Smoking Status: Never smoker Past Alcohol Use History: Daily Past Drug Use History: None Reported - Past Family History Father Family Medical History: AICD/Pacemaker, Congestive Heart Failure (CHF) Additional Family Medical History / Comment(s): cellulitis Mother Family Medical History: AICD/Pacemaker, Dementia Medications and Allergies Home Medications Medication Instructions Recorded Confirmed Type Aspirin EC [Ecotrin Low Dose] 81 mg PO DAILY 03/02/23 11/18/24 History Lansoprazole 30 mg PO DAILY 03/02/23 11/18/24 History Levothyroxine Sodium [Synthroid] 100 mcg PO SUTUWETHSA 03/02/23 11/18/24 History Multivit-Min/Iron/Folic/Lutein 1 tab PO DAILY 03/02/23 11/18/24 History [Centrum Silver Women Tablet] atenoloL [Tenormin] 50 mg PO DAILY 03/02/23 11/18/24 History Chlorthalidone [Hygroton] 25 mg PO DAILY tab 08/10/23 11/18/24 Rx Clopidogrel [Plavix] 75 mg PO DAILY #20 tab 08/10/23 11/18/24 Rx Naproxen Sodium [Aleve] 220 mg PO DAILY 11/18/24 11/18/24 History amLODIPine [Norvasc] 5 mg PO DAILY 11/18/24 11/18/24 History Allergies Allergy/AdvReac Type Severity Reaction Status Date / Time No Known Allergies Allergy Verified 11/18/24 15:37 Surgical - Exam Vital Signs Temp Pulse Resp BP Pulse Ox 98 F 78 20 163/71 99 11/18/24 11:54 11/18/24 11:54 11/18/24 11:54 11/18/24 11:54 11/18/24 11:54 Results - Labs 11/18/24 13:58 11/18/24 14:00 Abnormal Lab Results - Last 24 Hours (Table) 11/18/24 11/18/24 Range/Units 13:58 14:00 MPV 9.1 L (9.5-12.2) fL Monocytes # 1.10 H (0.20-1.00) 10*3/uL Eosinophils # 0.48 H (0.04-0.35) 10*3/uL BUN 26 H (7-17) mg/dL Glucose 110 H (74-99) mg/dL Alkaline Phosphatase 173 H (38-126) U/L C-Reactive Protein 1.2 H (<1.0) mg/dL Microbiology - Last 24 Hours (Table) 11/18/24 13:42 Gram Stain - Preliminary Leg - Right Diabetes panel 11/18/24 Range/Units 14:00 Sodium 142 (137-145) mmol/L Potassium 4.0 (3.5-5.1) mmol/L Chloride 104 (98-107) mmol/L Carbon Dioxide 28 (22-30) mmol/L BUN 26 H (7-17) mg/dL Creatinine 0.91 (0.52-1.04) mg/dL Glucose 110 H (74-99) mg/dL Calcium 9.7 (8.4-10.2) mg/dL AST 29 (14-36) U/L ALT 17 (4-34) U/L Alkaline Phosphatase 173 H (38-126) U/L Total Protein 7.3 (6.3-8.2) g/dL Albumin 3.9 (3.5-5.0) g/dL Thyroid panel 11/18/24 Range/Units 14:00 TSH 4.420 (0.465-4.680) mIU/L Calcium panel 11/18/24 Range/Units 14:00 Calcium 9.7 (8.4-10.2) mg/dL Albumin 3.9 (3.5-5.0) g/dL Pituitary panel 11/18/24 Range/Units 14:00 Sodium 142 (137-145) mmol/L Potassium 4.0 (3.5-5.1) mmol/L Chloride 104 (98-107) mmol/L Carbon Dioxide 28 (22-30) mmol/L BUN 26 H (7-17) mg/dL Creatinine 0.91 (0.52-1.04) mg/dL Glucose 110 H (74-99) mg/dL Calcium 9.7 (8.4-10.2) mg/dL TSH 4.420 (0.465-4.680) mIU/L Adrenal panel 11/18/24 Range/Units 14:00 Sodium 142 (137-145) mmol/L Potassium 4.0 (3.5-5.1) mmol/L Chloride 104 (98-107) mmol/L Carbon Dioxide 28 (22-30) mmol/L BUN 26 H (7-17) mg/dL Creatinine 0.91 (0.52-1.04) mg/dL Glucose 110 H (74-99) mg/dL Calcium 9.7 (8.4-10.2) mg/dL Total Bilirubin 0.5 (0.2-1.3) mg/dL AST 29 (14-36) U/L ALT 17 (4-34) U/L Alkaline Phosphatase 173 H (38-126) U/L Total Protein 7.3 (6.3-8.2) g/dL Albumin 3.9 (3.5-5.0) g/dL
[2024-11-19 08:39] LABS: Basophils # (A) 0.04 X 10*3/uL (0.00-0.10); Basophils % (A) 0.8 %; Eosinophils # (A) 0.39 X 10*3/uL (0.04-0.35); Eosinophils % (A) 7.5 %; HCT 36.8 % (37.2-46.3); HGB 11.6 g/dL (12.0-15.0); Immature Grans, Automated 0.20 %; Lymphocytes # (A) 1.17 X 10*3/uL (0.90-5.00); Lymphocytes % (A) 22.5 %; MCH 28.6 pg (27.0-32.0); MCHC 31.5 g/dL (32.0-37.0); MCV 90.9 FL (80.0-97.0); Monocytes # (A) 0.84 X 10*3/uL (0.20-1.00); Monocytes % (A) 16.2 %; NRBC Per 100 WBC 0 X 10*3/uL (0.00-0.01); Neutrophils # (A) 2.75 X 10*3/uL (1.80-7.70); Neutrophils % (A) 52.8 %; Platelet Count 259 X 10*3/uL (140-440); RBC 4.05 X 10*6/uL (4.10-5.20); RDW 15.9 % (11.5-14.5); WBC 5.20 X 10*3/uL (4.50-10.00)
[2024-11-19 08:53] LABS: Anion Gap 11.80 mmol/L (4.00-12.00); BUN/Creat Ratio 23.89 Ratio (12.00-20.00); Blood Urea Nitrogen 21.5 mg/dL (9.0-27.0); Calcium 8.9 mg/dL (8.7-10.3); Carbon Dioxide 24.2 mmol/L (21.6-31.8); Chloride 108 mmol/L (96-109); Glucose 105 mg/dL (70-110); Potassium 4.2 mmol/L (3.5-5.5); Sodium 144 mmol/L (135-145)
[2024-11-19] MEDS ORDERED: amLODIPine 5 MG TAB PO SCH (09:00)
[2024-11-19] MEDS: NAPROXEN 250 MG TAB PO SCH (10:06)
[2024-11-19] MEDS: ASPIRIN 81 MG PO SCH (10:06)
[2024-11-19] MEDS: MULTIVITAMINS, THERA 1 EACH TAB PO SCH (10:08)
--- NOTE | 2024-11-19 14:41 | P.PN ---
Progress Note - Text Progress Note Date: 11/19/24 Chief Complaint: Lower extremity weeping patient is a 79-year-old lady with past medical history significant for hypertension, hyperlipidemia, GERD. Right hemiparesis from the stroke in July [address]. PCP [address] Toney Irving She presents to the ER accompanied by her daughter. Patient said lower extremity swelling for some time and used to follow-up with Dr. Hoffman from vascular. She was told she has venous problems. 1 tabs also offered surgery had cardiac clearance. Then the patient decided to follow-up with Dr. Swan from vascular. To surgical wound center. She saw Lyric And that dressing changes with the being done. Because of increasing weeping she is present to the ER today. Denies any fever and chills. Stockings have been placed in the ER. November 19: Up in a recliner. Legs elevated. Seen by Dr. Hoffman from vascular this morning. He will review his notes from his office and get back to the patient. Will put patient oral Keflex Active Medications Aspirin (Aspirin 81 Mg) 81 mg PO DAILY [facility] Last Admin: 11/19/24 10:06 Dose: 81 mg Atenolol (Atenolol 50 Mg Tab) 50 mg PO DAILY [facility] Last Admin: 11/19/24 10:08 Dose: 50 mg Clopidogrel Bisulfate (Clopidogrel 75 Mg Tab) 75 mg PO DAILY [facility] Last Admin: 11/19/24 10:08 Dose: 75 mg Enoxaparin Sodium (Enoxaparin 40 Mg/0.4 Ml Syringe) 40 mg SQ DAILY [facility] Last Admin: 11/19/24 10:08 Dose: 40 mg Levothyroxine Sodium (Levothyroxine 100 Mcg Tab) 100 mcg PO [id number] [facility] Last Admin: 11/19/24 05:59 Dose: 100 mcg Losartan Potassium (Losartan 50 Mg Tab) 50 mg PO HS [facility] Last Admin: 11/18/24 22:46 Dose: 50 mg Multivitamins (Multivitamins, Thera 1 Each Tab) 1 each PO DAILY [facility] Last Admin: 11/19/24 10:08 Dose: 1 each Naloxone HCl (Naloxone 0.4 Mg/Ml 1 Ml Vial) 0.2 mg IV Q2M PRN PRN Reason: Opioid Reversal Naproxen (Naproxen 250 Mg Tab) 250 mg PO DAILY [facility] Last Admin: 11/19/24 10:06 Dose: 250 mg Pantoprazole Sodium (Pantoprazole 40 Mg Tablet) 40 mg PO [id number] [facility] Last Admin: 11/19/24 06:52 Dose: 40 mg On examination: VITAL SIGNS:] 8.9, 63, 16, 119 x 53, 96% room GENERAL APPEARANCE: BMI 35.4, sitting up in bed HEENT: Normal external appearance of nose and ear. Oral cavity normal EYES: Pupils equal. Conjunctiva normal. NECK: JVD not raised. Mass not palpable. RESPIRATORY: Respiratory effort normal. Lungs clear to auscultation. CARDIOVASCULAR: First and second sounds normal. No edema. ABDOMEN: Soft. Liver and spleen not palpable. No tenderness. No mass palpable. PSYCHIATRY: Alert and oriented x3. Mood and affect normal. NEUROLOGICAL: Power t on the right side 4/5. Cranial nerves grossly intact Extremities: Stockings up to the knee lower extremity. INVESTIGATIONS, reviewed in the clinical context: November 19: White count 5.2 hemoglobin 11.6 potassium 4.2 creatinine 0.9. Procalcitonin is less than 0.20. TSH 4.4 November 18, 2024: White count 7.9 hemoglobin 13.2 platelets 265 potassium 4 creatinine 0.91 CRP 1.2 Assessment and plan: - Bilateral lower extremity venous insufficiency probably resulting in weeping. Possible secondary cellulitis IV Unasyn. Will give Keflex Will also DC amlodipine as this could be contributing to patient's lower extremity edema Seen by Dr. Hoffman from vascular. He knows the patient well. He will review records from the office and give us a further plan -Right paresis from prior stroke July 2023 Aspirin. -Hyperlipidemia Lipitor 40 mg nightly -Essential hypertension, Add Cozaar 50 mg nightly. 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 Keflex. Await further input from Dr. Hoffman Past Medical History Past Medical History: CVA/TIA, GERD/Reflux, Hyperlipidemia, Hypertension, Osteoarthritis (OA) Additional Past Medical History / Comment(s): Leg wounds and weeping, new right side weakness and facial droop History of Any Multi-Drug Resistant Organisms: None Reported Additional Past Surgical History / Comment(s): left breast lumpectomy, right ankle surgery Past Anesthesia/Blood Transfusion Reactions: No Reported Reaction Past Psychological History: No Psychological Hx Reported Smoking Status: Never smoker Past Alcohol Use History: Daily Past Drug Use History: None Reported
[2024-11-19] MEDS: CEPHALEXIN 500 MG CAP PO SCH (15:36)
[2024-11-19] MEDS ORDERED: VANCOMYCIN 1,500 MG in SODIUM CHLORIDE 0.9% 500 ML 500 ML IVPB SCH (16:00)
[2024-11-20 08:21] VITALS: RESP 16
[2024-11-20 15:00] VITALS: BP 144/72; PULSE 63; TEMP 97.5
--- NOTE | 2024-11-20 17:12 | P.PN ---
Progress Note - Text 79-year-old female patient known to me from the office patient had a venous ultrasound which shows reflux in the great saphenous vein. Patient came with bilateral lower extremity patient is on IV antibiotic and local wound care I have reviewed the record from my office patient has a great saphenous vein large reflux I have discussed with the patient I will like to see her in my office next week we will discuss about her substance wean laser patient going home today will follow-up in the office next week
--- NOTE | 2024-11-20 19:41 | P.DS ---
Providers Date of admission: 11/18/24 15:32 Expected date of discharge: 11/20/24 Attending physician: David Rodríguez Consults: 11/18/24 21:57 Consult Physician Routine Consulting Provider: Singh Hoffman Consult Reason/Comments: Lower extremity swellings/venous Do you want consulting provider notified?: Yes Primary care physician: Toney Irving [facility] Course: Chief Complaint: Lower extremity weeping patient is a 79-year-old lady with past medical history significant for hypertension, hyperlipidemia, GERD. Right hemiparesis from the stroke in July [address]. PCP [address] Toney Irving She presents to the ER accompanied by her daughter. Patient said lower extremity swelling for some time and used to follow-up with Dr. Hoffman from vascular. She was told she has venous problems. 1 tabs also offered surgery had cardiac clearance. Then the patient decided to follow-up with Dr. Swan from vascular. To surgical wound center. She saw Lyric And that dressing changes with the being done. Because of increasing weeping she is present to the ER today. Denies any fever and chills. Stockings have been placed in the ER. November 19: Up in a recliner. Legs elevated. Seen by Dr. Hoffman from vascular this morning. He will review his notes from his office and get back to the patient. Will put patient oral Keflex November 20: Patient feels some improvement in the leg. Dr. Hoffman from vascular saw the patient he has known great saphenous veins reflux. He will see other office in consider laser treatment. Patient received 5 more days of Keflex. Amlodipine was discontinued for possible lower extremity swelling. Replaced with Cozaar. Discussed with also Dr. Hoffman. Discussion and discharge planning more than 35 minutes On examination: VITAL SIGNS:] 97.5, 63, 16, 144 x 72, 90% room air GENERAL APPEARANCE: BMI 35.4, in a recliner HEENT: Normal external appearance of nose and ear. Oral cavity normal EYES: Pupils equal. Conjunctiva normal. NECK: JVD not raised. Mass not palpable. RESPIRATORY: Respiratory effort normal. Lungs clear to auscultation. CARDIOVASCULAR: First and second sounds normal. No edema. ABDOMEN: Soft. Liver and spleen not palpable. No tenderness. No mass palpable. PSYCHIATRY: Alert and oriented x3. Mood and affect normal. NEUROLOGICAL: Power t on the right side 4/5. Cranial nerves grossly intact Extremities: Stockings up to the knee lower extremity. INVESTIGATIONS, reviewed in the clinical context: November 19: White count 5.2 hemoglobin 11.6 potassium 4.2 creatinine 0.9. Procalcitonin is less than 0.20. TSH 4.4 November 18, 2024: White count 7.9 hemoglobin 13.2 platelets 265 potassium 4 creatinine 0.91 CRP 1.2 Assessment and plan: - Bilateral lower extremity venous insufficiency probably resulting in fluid extravasation. Possible secondary cellulitis IV Unasyn. Will give Keflex Will also DC amlodipine as this could be contributing to patient's lower extremity edema Seen by Dr. Hoffman from vascular. Patient has greater saphenous vein reflux. He will follow-up with the patient outpatient with possible V2 laser therapy. - Lower extremity cellulitis-mild Complete 5 days of Keflex -Right paresis from prior stroke July 2023 Aspirin. -Hyperlipidemia Lipitor 40 mg nightly -Essential hypertension, Add Cozaar 50 mg nightly. 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 Cane/walker -Full code Disposition: Home Past Medical History Past Medical History: CVA/TIA, GERD/Reflux, Hyperlipidemia, Hypertension, Osteoarthritis (OA) Additional Past Medical History / Comment(s): Leg wounds and weeping, new right side weakness and facial droop History of Any Multi-Drug Resistant Organisms: None Reported Additional Past Surgical History / Comment(s): left breast lumpectomy, right ankle surgery Past Anesthesia/Blood Transfusion Reactions: No Reported Reaction Past Psychological History: No Psychological Hx Reported Smoking Status: Never smoker Past Alcohol Use History: Daily Past Drug Use History: None Reported Plan - Discharge Summary Discharge Rx Participant: Yes New Discharge Prescriptions: New Cephalexin [Keflex] 500 mg PO TID #15 cap Losartan [Cozaar] 50 mg PO HS #30 tab Continue Lansoprazole 30 mg PO DAILY Aspirin EC [Ecotrin Low Dose] 81 mg PO DAILY Chlorthalidone [Hygroton] 25 mg PO DAILY tab Clopidogrel [Plavix] 75 mg PO DAILY #20 tab atenoloL [Tenormin] 50 mg PO DAILY Levothyroxine Sodium [Synthroid] 100 mcg PO SUTUWETHSA Multivit-Min/Iron/Folic/Lutein [Centrum Silver Women Tablet] 1 tab PO DAILY Naproxen Sodium [Aleve] 220 mg PO DAILY Discontinued amLODIPine [Norvasc] 5 mg PO DAILY Discharge Medication List Aspirin EC [Ecotrin Low Dose] 81 mg PO DAILY 03/02/23 [History] Lansoprazole 30 mg PO DAILY 03/02/23 [History] Levothyroxine Sodium [Synthroid] 100 mcg PO SUTUWETHSA 03/02/23 [History] Multivit-Min/Iron/Folic/Lutein [Centrum Silver Women Tablet] 1 tab PO DAILY 03/02/23 [History] atenoloL [Tenormin] 50 mg PO DAILY 03/02/23 [History] Chlorthalidone [Hygroton] 25 mg PO DAILY tab 08/10/23 [Rx] Clopidogrel [Plavix] 75 mg PO DAILY #20 tab 08/10/23 [Rx] Naproxen Sodium [Aleve] 220 mg PO DAILY 11/18/24 [History] Cephalexin [Keflex] 500 mg PO TID #15 cap 11/20/24 [Rx] Losartan [Cozaar] 50 mg PO HS #30 tab 11/20/24 [Rx] Follow up Appointment(s)/Referral(s): Toney Irving MD [Primary Care Provider] - 1-2 days Singh Hoffman MD [STAFF PHYSICIAN] - 1 Week Patient Instructions/Handouts: Cellulitis (ED) Discharge Disposition: HOME SELF-CARE
== END 2024-11-20 17:34 | disposition home or self-care (01) ==
LOC: EC 11:49 → 6NMEDSUR 15:32
PROVIDERS: ADMIT Hospitalist; ATTEND Hospitalist
DX: I87.2 Venous insufficiency (chronic) (peripheral) (principal); L03.115 Cellulitis of right lower limb; L03.116 Cellulitis of left lower limb; I10 Essential (primary) hypertension; K21.9 Gastro-esophageal reflux disease without esophagitis; E78.5 Hyperlipidemia, unspecified; E03.9 Hypothyroidism, unspecified; I69.322 Dysarthria following cerebral infarction; I69.351 Hemiplegia and hemiparesis following cerebral infarction affecting right dominant side; E66.9 Obesity, unspecified; Z68.36 Body mass index [BMI] 36.0-36.9, adult; Z79.02 Long term (current) use of antithrombotics/antiplatelets; Z79.82 Long term (current) use of aspirin; Z79.890 Hormone replacement therapy; Z79.899 Other long term (current) drug therapy
CPT/HCPCS: 96372 ×3; 96365; 96366; 96367; 99285; 36415; 80053; 80048; 85652; 84443; 85025 ×2; 86140; 87070; 87205; 84145; G0378 ×3; J1650 ×3; J0295; J3373